=== PATIENT | male | born 1955 | race Caucasian/White ===

== ENCOUNTER 2024-08-05 00:15 | Inpatient (IN) | payer MEDICARE, SELFPAY ==
[2024-08-05] VITALS (15 sets, daily range): BP systolic 108–160; BP diastolic 48–85; PULSE 96–130; RESP 18–28; TEMP 37.2–38.7; O2SAT 92–98; BMI 28.7
--- NOTE | 2024-08-05 00:27 | ECG_ITS ---
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 Measurements Intervals [place] Rate: 114 P: 70 CT: 138 QRS: 238 QRSD: 140 T: 51 QT: 297 QTc: 409 Interpretive Statements SINUS TACHYCARDIA INDETERMINATE AXIS RIGHT BUNDLE BRANCH BLOCK [120+ ms QRS DURATION, UPRIGHT V1, 40+ ms S IN I/aVL/V4/V5/V6] No previous ECG available for comparison Electronically Signed On 08-05-2024 18:05:52 CDT by Linda Gonzales M.D. [id number]
[2024-08-05 00:38] LABS: Eosinophils % 1.3 %; Hematocrit 39.8 % (37-53); Lymphocytes # 0.3 10^3/uL (0.8-4.8); Lymphocytes % 10.8 %; Mean Corpuscular HGB Conc 33.4 g/dL (30-55); Mean Corpuscular Hemoglobin 31.9 pg (27-33); Mean Corpuscular Volume 95.4 fl (82-101); Mean Platelet Volume 10.2 fL (7.4-10.4); Monocytes # 0.2 10^3/uL (0.2-0.9); Monocytes % 8.1 %; Neutrophils # 2.33 10^3/uL (1.8-7.7); Neutrophils % 78.5 %; Nucleated Red Blood Cells % 0 %; Platelet Count 124 10^3/cmm (157-399); Red Blood Count 4.17 10^6/uL (3.85-5.65); Red Cell Distribution Width 13.1 % (12.1-15.1); White Blood Count 2.97 10^3/uL (3.29-11.43)
[2024-08-05 00:51] LABS: INR 0.93 (0.8-1.2)
[2024-08-05 00:52] LABS: Partial Thromboplastin Time 31.1 SECONDS (23.9-36.7)
[2024-08-05 00:58] LABS: Troponin(5th) Baseline 33 ng/L (0-15)
[2024-08-05 01:07] LABS: Alanine Aminotransferase 32 U/L (0-41); Blood Urea Nitrogen 18 mg/dL (8-23); Calcium 6.5 mg/dL (8.5-10.5); Carbon Dioxide 17 mmol/L (22-29); Chloride 113 mmol/L (98-107); Creatinine Clr Calc Pharmacy 71.7953; Glomerular Filtration Rate 66.4 mL/min (90-130); Glucose 183 mg/dL (65-115); NT Pro B Type Natriuretic Pept 65 pg/mL (0-125); Osmolality Calculated 295 mOsm/kg (285-295); Sodium 139 mmol/L (136-145); Total Bilirubin 0.3 mg/dL (0.15-1.2); Total Protein 4.6 g/dL (6.6-8.7)
[2024-08-05 01:08] LABS: Alkaline Phosphatase 96 U/L (40-130); Globulin 1.6 g/dL (1.3-4.6)
[2024-08-05 01:11] LABS: Anion Gap 12.8 (5-19); Aspartate Amino Transferase 35 U/L (0-40); Potassium 3.8 mmol/L (3.5-5.1)
[2024-08-05 01:41] LABS: Bilirubin Urine Negative (Negative); Blood Urine 3+ (Negative); Glucose Urine UA Trace (Normal); Ketones Urine Trace (Negative); Leukocyte Esterase Urine Negative (Negative); Nitrate Urine Negative (Negative); Protein Urine 1+ (Negative); Specific Gravity, Urine 1.025 (1.005-1.030); Urine Appearance Clear (CLEAR); Urine Color Yellow (Yellow); pH Urine 5.5 (5-7)
[2024-08-05 01:46] LABS: Add Urine Microscopic? YES; Bacteria Urine None Seen /hpf; Hyaline Casts Urine 2.05 /lpf; RBC Urine >100 /hpf (0-2); Squamous Epithelial Cell Urine 0-5 /hpf (0-5); WBC Urine 0-5 /hpf (0-5)
--- NOTE | 2024-08-05 02:26 | ECG_ITS ---
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 Measurements Intervals [place] Rate: 104 P: 79 [place]: 142 QRS: 237 QRSD: 137 T: 64 QT: 336 QTc: 442 Interpretive Statements SINUS TACHYCARDIA WITH OCCASIONAL SUPRAVENTRICULAR PREMATURE COMPLEXES INDETERMINATE AXIS RIGHT BUNDLE BRANCH BLOCK [120+ ms QRS DURATION, UPRIGHT V1, 40+ ms S IN I/aVL/V4/V5/V6] Compared to ECG 08/05/2024 00:27:18 No significant changes Electronically Signed On 08-05-2024 18:20:22 CDT by Linda Gonzales M.D. [email or web address]
[2024-08-05 02:28] LABS: Influenza A NEGATIVE (Negative); Influenza B NEGATIVE (Negative); Respiratory Syncytial Virus Ce NEGATIVE (Negative); SARS-CoV-2 PCR NEGATIVE (Negative)
[2024-08-05 02:47] LABS: Troponin 5 2HR 53.32 ng/L (0-15)
[2024-08-05 02:49] LABS: Troponin 5 2HR Delta 20.32 ABS# (0-10)
--- NOTE | 2024-08-05 03:09 | CTR_ITS ---
PROCEDURE INFORMATION: Exam: CT Abdomen And Pelvis With Contrast Exam date and time: 08/05/2024 3:30 AM Age: 69 years old Clinical indication: Abdominal pain; Generalized; Additional info: Abdominal pain on exam TECHNIQUE: Imaging protocol: Computed tomography of the abdomen and pelvis with contrast. Radiation optimization: All CT scans at this facility use at least one of these dose optimization techniques: automated exposure control; mA and/or kV adjustment per patient size (includes targeted exams where dose is matched to clinical indication); or iterative reconstruction. Contrast material: OMNI 350; Contrast volume: 100 ml; Contrast route: INTRAVENOUS (IV); COMPARISON: CT angio chest PE protcl [id number] 08/05/2024 3:30 AM RADIATION DOSE METRICS: Total DLP (mGy-cm): 387.2 FINDINGS: Liver: Normal. No mass. Gallbladder and biliary ducts: Normal. No calcified stones. No ductal dilation. Pancreas: Normal. No ductal dilation. Spleen: Normal. No splenomegaly. Adrenal glands: Normal. No mass. Kidneys and ureters: Small left renal cysts measuring up to 1.4 cm. Stomach and bowel: Colonic diverticulosis is present without diverticulitis. Bowel has normal caliber. Appendix: No evidence of appendicitis. Intraperitoneal space: Unremarkable. No free air. No significant fluid collection. Vasculature: Aortoiliac atherosclerotic disease is seen without evidence of aneurysm. Lymph nodes: Unremarkable. No enlarged lymph nodes. Urinary bladder: 2.5 x 2.5 cm mass in the posterolateral aspect of the urinary bladder lumen. Reproductive: Unremarkable as visualized. Bones/joints: Unremarkable. No acute fracture. Soft tissues: Tiny fat containing left periumbilical ventral hernia. CT/CT abdomen pelvis w con* [id number] IMPRESSION: 1. 2.5 x 2.5 cm mass in the posterolateral aspect of the urinary bladder lumen. Highly suspicious for malignancy. Follow-up urology consultation is recommended. 2. No evidence of acute abdominal or pelvic process. 3. Tiny fat containing left periumbilical ventral hernia. COMMENTS: Consistent with the [place] [employer]'s Incidental Findings Committee white paper (J Am Pratima Radiol 2018): Any incidental renal lesion less than 1 cm or classified as too small to characterize, or any incidental cystic renal lesion characterized as simple-appearing, is likely benign. No follow-up imaging is recommended for these lesions per consensus recommendations based on imaging criteria.
--- NOTE | 2024-08-05 03:09 | CTR_ITS ---
PROCEDURE INFORMATION: Exam: CTA Chest With Contrast Exam date and time: 08/05/2024 3:30 AM Age: 69 years old Clinical indication: Pain; Shortness of breath; Chest pressure; Additional info: SOB and cp TECHNIQUE: Imaging protocol: Computed tomographic angiography of the chest with contrast. Exam focused on the arteries. 3D rendering (Not supervised by radiologist): MIP and/or 3D reconstructed images were created by the technologist. Radiation optimization: All CT scans at this facility use at least one of these dose optimization techniques: automated exposure control; mA and/or kV adjustment per patient size (includes targeted exams where dose is matched to clinical indication); or iterative reconstruction. Contrast material: OMNI 350; Contrast volume: 100 ml; Contrast route: INTRAVENOUS (IV); COMPARISON: CT abdomen pelvis w con* [id number] 08/05/2024 3:30 AM RADIATION DOSE METRICS: Total DLP (mGy-cm): 576.3 FINDINGS: Pulmonary arteries: No evidence of pulmonary embolism. Aorta: Aortic atherosclerotic disease is seen without evidence of aneurysm. Lungs: Moderate centrilobular emphysematous changes are present. Pleural spaces: Unremarkable. No pneumothorax. No pleural effusion. Heart: Unremarkable. No cardiomegaly. No pericardial effusion. Coronary arteries: Coronary artery calcifications are present. Esophagus: There is nonspecific diffuse esophageal wall thickening, which may represent mild esophagitis. Lymph nodes: Unremarkable. No enlarged lymph nodes. Bones/joints: Unremarkable. No acute fracture. Soft tissues: Unremarkable. CT/CT angio chest PE protcl [id number] IMPRESSION: 1. No evidence of pulmonary embolism. 2. Moderate emphysema. 3. There is nonspecific diffuse esophageal wall thickening, which may represent mild esophagitis. Clinical correlation recommended. COMMENTS: The presence of pulmonary emphysema on CT is an independent risk factor for lung cancer. In the absence of a history or active diagnosis of lung cancer, it is recommended that this patient with emphysema be evaluated for enrollment in a low dose CT lung cancer screening program.
[2024-08-05] MEDS: iohexol 350 mg/mL 500 mL Btl (per mL) IV (03:41)
[2024-08-05] MEDS: clopidogrel 75 mg Tablet PO (04:02)
--- NOTE | 2024-08-05 04:04 | ED_ITS ---
Documented by User: Justin DO Segundo 08/05/24 05:33 HPI - SOB/Dyspnea 2 General: Chief Complaint: Shortness of Breath/Dyspnea Stated Complaint: DIZZY Time Seen by Provider: 08/05/24 00:26 History of Present Illness: HPI Narrative: Tree Richey presents with recurrent episodes of fever, chills, and sweating for the past 3 days. He reports feeling significantly better since arrival at the hospital compared to when he was picked up by emergency services. Mr. Richey has been experiencing cyclical episodes of fever, chills, and sweating. The fever typically reaches a maximum of 101?F, followed by chills and then profuse sweating. These episodes have been occurring for 3 days. The patient's reports that he appears to be shaking as if he has a high fever, though the measured temperature is not significantly elevated. Tylenol seems to provide some relief. Tonight, for the first time, Mr. Richey experienced nausea and vomiting. He denies any chest pain, abdominal pain, stuffy nose, runny nose, or sore throat. He reports no changes in urination or bowel movements. The patient mentions having constant back pain, but clarifies that this is not a new symptom. Mr. Richey also reports an exacerbation of a pre-existing umbilical hernia during a recent move. He states that his belly button popped out way more than it ever did when he lifted something heavy. The hernia is tender to touch but reducible. The patient has been experiencing significant dizziness, and there is mention of shortness of breath, though details are not provided. Related Data Allergies Allergy/AdvReac Type Severity Reaction Status Date / Time No Known Allergies Allergy Verified 08/05/24 00:25 Review of Systems 2 General: Reports: 10 or more systems reviewed and unremarkable except in HPI and below Physical Exam 2 Const: COMMON NORMALS: no acute distress, patient oriented x3, healthy appearing, alert and well nourished HENMT: COMMON NORMALS: normocephalic HEAD & SCALP: normocephalic Eye: COMMON NORMALS: EOMs intact bilaterally Neck/C-Spine: COMMON NORMALS: full ROM and supple Resp: COMMON NORMALS: normal respiratory effort, No retractions and clear to auscultation bilaterally AUSCULTATION: clear to auscultation bilaterally Cardio: COMMON NORMALS: regular rhythm, No gallops present (Cardio) and No murmurs present (Cardio) RATE: tachycardic RHYTHM: regular rhythm GI: COMMON NORMALS: Soft to palpation and non-tender PALPATION: Yes Soft to palpation Extremity: GENERAL: Yes normal exam except as noted Neuro: COMMON NORMALS: patient oriented x3 SENSORIUM/ORIENTATION: Yes alert Skin: COMMON NORMALS: no rashes or lesions noted GENERAL SKIN EXAM: no rashes or lesions noted Course 2 Vital Signs: Vital signs: Vital Signs Temperature 99.0 F 08/05/24 00:19 Pulse Rate 110 H 08/05/24 06:54 Respiratory Rate 18 08/05/24 06:54 Blood Pressure 125/64 08/05/24 06:54 Pulse Oximetry 96 08/05/24 06:54 Oxygen Delivery Me thod Room Air 08/05/24 06:54 MDM - SOB/Dyspnea Medical Decision Making 69-year-old male presents to the emergency department for evaluation of episodes of recurrent fever, chills, sweating, and shortness of breath for the last 3 days. Patient arrived to the emergency department via EMS tachycardic. His physical exam demonstrated initial diaphoresis that resolved while in the department. His EKGs did not demonstrate STEMI. Patient had leukopenia and low platelets. He was hyperglycemic. Patient had an elevated Trope with a positive delta. This appears to be consistent with an NSTEMI. Due to the patient's general appearance and inability to rule out a PE the patient underwent a CTA chest with abdomen and pelvis CT. There was no PE present. However, there was an incidental finding of a 2.5 x 2.5 cm mass in his bladder that is suspicious for malignancy. Patient's viral panel was negative. The patient also had an umbilical fat-containing hernia. Patient will need to be admitted to the hospital for management of his NSTEMI and followed with urology outpatient for the bladder mass. Case was turned over to Dr. Kaur for signout. Lab Data 08/05/24 00:33 08/05/24 00:33 Labs/Radiology: Radiology Impressions Abdomen/Pelvis CT 08/05/24 03:09 IMPRESSION: 1. 2.5 x 2.5 cm mass in the posterolateral aspect of the urinary bladder lumen. Highly suspicious for malignancy. Follow-up urology consultation is recommended. 2. No evidence of acute abdominal or pelvic process. 3. Tiny fat containing left periumbilical ventral hernia. COMMENTS: Consistent with the [place] [employer]'s Incidental Findings Committee white paper (J Am Pratima Radiol 2018): Any incidental renal lesion less than 1 cm or classified as too small to characterize, or any incidental cystic renal lesion characterized as simple-appearing, is likely benign. No follow-up imaging is recommended for these lesions per consensus recommendations based on imaging criteria. Chest CTA 08/05/24 03:09 IMPRESSION: 1. No evidence of pulmonary embolism. 2. Moderate emphysema. 3. There is nonspecific diffuse esophageal wall thickening, which may represent mild esophagitis. Clinical correlation recommended. COMMENTS: The presence of pulmonary emphysema on CT is an independent risk factor for lung cancer. In the absence of a history or active diagnosis of lung cancer, it is recommended that this patient with emphysema be evaluated for enrollment in a low dose CT lung cancer screening program. Laboratory Results WBC 2.97 10^3/uL (3.29-11.43) L 08/05/24 00:33 RBC 4.17 10^6/uL (3.85-5.65) 08/05/24 00:33 Hgb 13.30 g/dL (11.27-16.99) 08/05/24 00:33 Hct 39.8 % (37-53) 08/05/24 00:33 MCV 95.4 fl (82-101) 08/05/24 00:33 MCH 31.9 pg (27-33) 08/05/24 00:33 MCHC 33.4 g/dL (30-55) 08/05/24 00:33 RDW 13.1 % (12.1-15.1) 08/05/24 00:33 Plt Count 124 10^3/cmm (157-399) L 08/05/24 00:33 MPV 10.2 fL (7.4-10.4) 08/05/24 00:33 Neut % (Auto) 78.5 % 08/05/24 00:33 Lymph % (Auto) 10.8 % 08/05/24 00:33 Casey % (Auto) 8.1 % 08/05/24 00:33 Eos % (Auto) 1.3 % 08/05/24 00:33 Baso % (Auto) 1.0 % 08/05/24 00:33 Neut # (Auto) 2.33 10^3/uL (1.8-7.7) 08/05/24 00:33 Lymph # (Auto) 0.3 10^3/uL (0.8-4.8) L 08/05/24 00:33 Casey # (Auto) 0.2 10^3/uL (0.2-0.9) 08/05/24 00: Eos # (Auto) 0.0 10^3/uL (0.0-0.8) 08/05/24 00: Baso # (Auto) 0.0 10^3/uL (0.0-0.1) 08/05/24 00: Nucleated RBC % (auto) 0 % 08/05/24 00: Nucleated RBCs # 0.0 /100WBC 08/05/24 00: PT 13.10 SECONDS (12.1-14.9) 08/05/24 00: INR 0.93 (0.8-1.2) 08/05/24 00: APTT 31.1 SECONDS (23.9-36.7) 08/05/24 00: Sodium 139 mmol/L (136-145) 08/05/24 00: Potassium 3.8 mmol/L (3.5-5.1) 08/05/24 00: Chloride 113 mmol/L (98-107) H 08/05/24 00: Carbon Dioxide 17 mmol/L (22-29) L 08/05/24 00: Anion Gap 12.8 (5-19) 08/05/24 00: BUN 18 mg/dL (8-23) 08/05/24 00: Creatinine 1.1 mg/dL (0.7-1.2) 08/05/24 00: GFR Calculation 66.4 mL/min (90-130) L 08/05/24 00: Glucose 183 mg/dL (65-115) H 08/05/24 00: Calculated Osmolality 295 mOsm/kg (285-295) 08/05/24 00: Calcium 6.5 mg/dL (8.5-10.5) L 08/05/24 00: Total Bilirubin 0.3 mg/dL (0.15-1.2) 08/05/24 00:33 AST 35 U/L (0-40) 08/05/24 00:33 ALT 32 U/L (0-41) 08/05/24 00:33 Alkaline Phosphatase 96 U/L (40-130) 08/05/24 00:33 Troponin T Baseline 33 ng/L (0-15) H 08/05/24 00:33 Troponin T 120 Minute 53.32 ng/L (0-15) H 08/05/24 02:25 Delta Troponin T 20.32 ABS# (0-10) H* 08/05/24 02:25 NT-Pro-B Natriuret Pep 65 pg/mL (0-125) 08/05/24 00:33 Total Protein 4.6 g/dL (6.6-8.7) L 08/05/24 00:33 Albumin 3.0 g/dL (3.5-5.2) L 08/05/24 00:33 Globulin 1.6 g/dL (1.3-4.6) 08/05/24 00:33 Urine Color Yellow (Yellow) 08/05/24 01:34 Urine Appearance Clear (CLEAR) 08/05/24 01:34 Urine pH 5.5 (5-7) 08/05/24 01:34 Ur Specific [place] 1.025 (1.005-1.030) 08/05/24 01:34 Urine Protein 1+ (Negative) A 08/05/24 01:34 Urine Glucose (UA) Trace (Normal) H 08/05/24 01:34 Urine Ketones Trace (Negative) 08/05/24 01:34 Urine Blood 3+ (Negative) A 08/05/24 01:34 Urine Nitrate Negative (Negative) 08/05/24 01:34 Urine Bilirubin Negative (Negative) 08/05/24 01:34 Urine Urobilinogen 1.0 mg/dL (Negative) 08/05/24 01:34 Ur Leukocyte Esterase Negative (Negative) 08/05/24 01:34 Urine RBC >100 /hpf (0-2) H 08/05/24 01:34 Urine WBC 0-5 /hpf (0-5) 08/05/24 01:34 Ur Squamous Epith Cells 0-5 /hpf (0-5) 08/05/24 01:34 Amorphous Sediment Not Reportable 08/05/24 01:34 Urine Bacteria None seen /hpf (NONE) 08/05/24 01:34 Hyaline Casts 2.05 /lpf 08/05/24 01:34 Influenza A (PCR) Negative (Negative) 08/05/24 01:44 Influenza Type B (PCR) Negative (Negative) 08/05/24 01:44 RSV (PCR) Negative (Negative) 08/05/24 01:44 SARS-CoV-2 (PCR) Negative (Negative) 08/05/24 01:44 All radiology interpretation(s) finalized by discharge Discharge Plan Discharge Patient Disposition: Admitted As Inpatient Clinical Impression: Non-ST elevation [place] (NSTEMI), Bladder mass Condition: Stable Sign Out Sign Out Data: Patient Sign Out occurred on 08/05/24 at 05:41. Patient's care was discussed, and care was transferred from Justin Raymond DO to Brian Kaur DO. Coding Level of Care Code ED Hull Grinder for Chg Fwd Documented by User: Brian Kaur DO 08/05/24 07:17 HPI - SOB/Dyspnea 2 General: Chief Complaint: Shortness of Breath/Dyspnea Stated Complaint: DIZZY Time Seen by Provider: 08/05/24 00:26 Related Data Allergies Allergy/AdvReac Type Severity Reaction Status Date / Time No Known Allergies Allergy Verified 08/05/24 00:25 Course 2 Vital Signs: Vital signs: Vital Signs Temperature 99.0 F 08/05/24 00:19 Pulse Rate 110 H 08/05/24 06:54 Respiratory Rate 18 08/05/24 06:54 Blood Pressure 125/64 08/05/24 06:54 Pulse Oximetry 96 08/05/24 06:54 Oxygen Delivery Me thod Room Air 08/05/24 06:54 MDM - SOB/Dyspnea Medical Decision Making 69-year-old male presents to the emergency department for evaluation of episodes of recurrent fever, chills, sweating, and shortness of breath for the last 3 days. Patient arrived to the emergency department via EMS tachycardic. His physical exam demonstrated initial diaphoresis that resolved while in the department. His EKGs did not demonstrate STEMI. Patient had leukopenia and low platelets. He was hyperglycemic. Patient had an elevated Trope with a positive delta. This appears to be consistent with an NSTEMI. Due to the patient's general appearance and inability to rule out a PE the patient underwent a CTA chest with abdomen and pelvis CT. There was no PE present. However, there was an incidental finding of a 2.5 x 2.5 cm mass in his bladder that is suspicious for malignancy. Patient's viral panel was negative. The patient also had an umbilical fat-containing hernia. Patient will need to be admitted to the hospital for management of his NSTEMI and followed with urology outpatient for the bladder mass. Case was turned over to Dr. Kaur for signout. Care assumed at change of shift. Patient is currently on heparin. Will admit for NSTEMI. He reported a fever at home has a low-grade temp here of 99 urine shows hematuria but there is no evidence of acute cystitis CT of his chest was negative. Given Rocephin here and being cultured. The mass in the bladder can be worked up as an outpatient after his cardiac evaluation is complete. No sign of bladder outlet obstruction from this mass. Discussed with hospitalist consulted cardiology orders written. Medical Records I reviewed the patient's medical records. Lab Data I reviewed the patient's lab results. 08/05/24 00:33 08/05/24 00:33 Labs/Radiology: Radiology Impressions Abdomen/Pelvis CT 08/05/24 03:09 IMPRESSION: 1. 2.5 x 2.5 cm mass in the posterolateral aspect of the urinary bladder lumen. Highly suspicious for malignancy. Follow-up urology consultation is recommended. 2. No evidence of acute abdominal or pelvic process. 3. Tiny fat containing left periumbilical ventral hernia. COMMENTS: Consistent with the [place] [employer]'s Incidental Findings Committee white paper (J Am Pratima Radiol 2018): Any incidental renal lesion less than 1 cm or classified as too small to characterize, or any incidental cystic renal lesion characterized as simple-appearing, is likely benign. No follow-up imaging is recommended for these lesions per consensus recommendations based on imaging criteria. Chest CTA 08/05/24 03:09 IMPRESSION: 1. No evidence of pulmonary embolism. 2. Moderate emphysema. 3. There is nonspecific diffuse esophageal wall thickening, which may represent mild esophagitis. Clinical correlation recommended. COMMENTS: The presence of pulmonary emphysema on CT is an independent risk factor for lung cancer. In the absence of a history or active diagnosis of lung cancer, it is recommended that this patient with emphysema be evaluated for enrollment in a low dose CT lung cancer screening program. Laboratory Results WBC 2.97 10^3/uL (3.29-11.43) L 08/05/24 00:33 RBC 4.17 10^6/uL (3.85-5.65) 08/05/24 00:33 Hgb 13.30 g/dL (11.27-16.99) 08/05/24 00: Hct 39.8 % (37-53) 08/05/24: MCV 95.4 fl (82-101) 08/05/24 00: MCH 31.9 pg (27-33) 08/05/24 00: MCHC 33.4 g/dL (30-55) 08/05/24 00: RDW 13.1 % (12.1-15.1) 08/05/24 00: Plt Count 124 10^3/cmm (157-399) L 08/05/24 00: MPV 10.2 fL (7.4-10.4) 08/05/24 00: Neut % (Auto) 78.5 % 08/05/24 00: Lymph % (Auto) 10.8 % 08/05/24 00: Casey % (Auto) 8.1 % 08/05/24 00: Eos % (Auto) 1.3 % 08/05/24 00:33 Baso % (Auto) 1.0 % 08/05/24 00:33 Neut # (Auto) 2.33 10^3/uL (1.8-7.7) 08/05/24 00:33 Lymph # (Auto) 0.3 10^3/uL (0.8-4.8) L 08/05/24 00:33 Casey # (Auto) 0.2 10^3/uL (0.2-0.9) 08/05/24 00:33 Eos # (Auto) 0.0 10^3/uL (0.0-0.8) 08/05/24 00:33 Baso # (Auto) 0.0 10^3/uL (0.0-0.1) 08/05/24 00: Nucleated RBC % (auto) 0 % 08/05/24 00: Nucleated RBCs # 0.0 /100WBC 08/05/24 00:33 PT 13.10 SECONDS (12.1-14.9) 08/05/24 00:33 INR 0.93 (0.8-1.2) 08/05/24 00: APTT 31.1 SECONDS (23.9-36.7) 08/05/24 00:33 Sodium 139 mmol/L (136-145) 08/05/24 00: Potassium 3.8 mmol/L (3.5-5.1) 08/05/24 00: Chloride 113 mmol/L (98-107) H 08/05/24 00: Carbon Dioxide 17 mmol/L (22-29) L 08/05/24 00: Anion Gap 12.8 (5-19) 08/05/24 00: BUN 18 mg/dL (8-23) 08/05/24 00: Creatinine 1.1 mg/dL (0.7-1.2) 08/05/24 00:33 GFR Calculation 66.4 mL/min (90-130) L 08/05/24 00: Glucose 183 mg/dL (65-115) H 08/05/24 00:33 Calculated Osmolality 295 mOsm/kg (285-295) 08/05/24 00: Calcium 6.5 mg/dL (8.5-10.5) L 08/05/24 00: Total Bilirubin 0.3 mg/dL (0.15-1.2) 08/05/24 00:33 AST 35 U/L (0-40) 08/05/24 00: ALT 32 U/L (0-41) 08/05/24 00:33 Alkaline Phosphatase 96 U/L (40-130) 08/05/24 00:33 Troponin T Baseline 33 ng/L (0-15) H 08/05/24 00:33 Troponin T 120 Minute 53.32 ng/L (0-15) H 08/05/24 02:25 Delta Troponin T 20.32 ABS# (0-10) H* 08/05/24 02:25 NT-Pro-B Natriuret Pep 65 pg/mL (0-125) 08/05/24 00:33 Total Protein 4.6 g/dL (6.6-8.7) L 08/05/24 00:33 Albumin 3.0 g/dL (3.5-5.2) L 08/05/24 00:33 Globulin 1.6 g/dL (1.3-4.6) 08/05/24 00:33 Urine Color Yellow (Yellow) 08/05/24 01:34 Urine Appearance Clear (CLEAR) 08/05/24 01:34 Urine pH 5.5 (5-7) 08/05/24 01:34 Ur Specific [place] 1.025 (1.005-1.030) 08/05/24 01:34 Urine Protein 1+ (Negative) A 08/05/24 01:34 Urine Glucose (UA) Trace (Normal) H 08/05/24 01:34 Urine Ketones Trace (Negative) 08/05/24 01:34 Urine Blood 3+ (Negative) A 08/05/24 01:34 Urine Nitrate Negative (Negative) 08/05/24 01:34 Urine Bilirubin Negative (Negative) 08/05/24 01:34 Urine Urobilinogen 1.0 mg/dL (Negative) 08/05/24 01:34 Ur Leukocyte Esterase Negative (Negative) 08/05/24 01:34 Urine RBC >100 /hpf (0-2) H 08/05/24 01:34 Urine WBC 0-5 /hpf (0-5) 08/05/24 01:34 Ur Squamous Epith Cells 0-5 /hpf (0-5) 08/05/24 01:34 Amorphous Sediment Not Reportable 08/05/24 01:34 Urine Bacteria None seen /hpf (NONE) 08/05/24 01:34 Hyaline Casts 2.05 /lpf 08/05/24 01:34 Influenza A (PCR) Negative (Negative) 08/05/24 01:44 Influenza Type B (PCR) Negative (Negative) 08/05/24 01:44 RSV (PCR) Negative (Negative) 08/05/24 01:44 SARS-CoV-2 (PCR) Negative (Negative) 08/05/24 01:44 Discharge Plan Discharge Patient Disposition: Admitted As Inpatient Clinical Impression: Non-ST elevation [place] (NSTEMI), Bladder mass Condition: Stable Sign Out Sign Out Data: Patient Sign Out occurred on 08/05/24 at 05:41. Patient's care was discussed, and care was transferred from Justin Raymond DO to Brian Kaur DO. Coding Level of Care Code ED Hull Grinder for Magalie Lee
[2024-08-05] MEDS: heparin 5,000 unit/mL INJ 1 mL IVP (04:09)
[2024-08-05] MEDS: heparin drip 25,000 UNIT/500 ML PREMIX 25 UNIT IV (04:11)
--- NOTE | 2024-08-05 04:36 | PC.NURSE ---
pt provided hospital bed. pt has no further requests at this time.
--- NOTE | 2024-08-05 06:26 | ECG_ITS ---
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 Measurements Intervals [place] Rate: 94 P: 72 [place]: 144 QRS: -83 QRSD: 160 T: 52 QT: 363 QTc: 456 Interpretive Statements SINUS RHYTHM WITH OCCASIONAL SUPRAVENTRICULAR PREMATURE COMPLEXES LEFT AXIS DEVIATION [QRS AXIS < -30] RIGHT BUNDLE BRANCH BLOCK [120+ ms QRS DURATION, UPRIGHT V1, 40+ ms S IN I/aVL/V4/V5/V6] Compared to ECG 08/05/2024 02:26:33 Left-axis deviation now present Sinus tachycardia no longer present Indeterminate axis no longer present Electronically Signed On 08-05-2024 18:19:20 CDT by Linda Gonzales M.D. [email or web address]
[2024-08-05 07:33] LABS: Troponin 5 6HR 47.33 ng/L (0-15)
[2024-08-05 07:36] LABS: Troponin 5 6HR Delta 14.33 ng/L (0-12)
[2024-08-05] MEDS: cefTRIAXone 1,000 mg SDV 1000 MG IVP ×2 (08:04→22:13)
[2024-08-05 08:13] LABS: Lactic Sepsis W/Reflex 1.2 mmol/L (0.5-2.2)
--- NOTE | 2024-08-05 08:16 | PM.HP ---
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 The chills and fever episodes are intermittent, relieved temporarily by Tylenol and ibuprofen, followed by hot sweats and transient improvement, but then recur. The patient also reports significant dizziness and lightheadedness, which has been present intermittently for a couple of months but has worsened over the last three days. There was a splitting headache yesterday, but not currently. The patient denies recent rashes or tick bites. There is a history of chronic lower back pain, which worsens with illness, attributed to two compressed discs. The patient reports some urgency with urination but denies burning. There is no current chest pain or pressure. The patient has been very fatigued. No recent imaging of the back since his 20s. The patient is anxious about being in the hospital and prefers to be mobile. Denies alcohol use except rarely and no recreational drug use. No reported allergies. The patient has a history of rotator cuff surgery and wears dentures. No recent travel or other exposures noted. Denies current headache, neck stiffness, or neurologic symptoms. Denies rashes or tick bites. No mention of family history of cancer, but family history of hypertension, diabetes, and hyperlipidemia. Review of Systems Const: Reports: fever(s), chills, fatigue and diaphoresis; Denies: body aches ENMT: Denies: throat pain Card: Denies: chest pain, edema, pre-syncope or dyspnea on exertion Resp: Denies: dyspnea, productive cough, change in phlegm color or hemoptysis GI: Reports: nausea and vomiting; Denies: abdominal pain, diarrhea, constipation, hematochezia or melena : Reports: urinary urgency; Denies: flank pain, difficulty urinating or hematuria Musc: Denies: back pain, joint swelling or joint redness Skin/Breast: Denies: rash or new lesions Neuro: Denies: headache(s) or confusion Medications/Allergies Home Medications ?Medication ?Instructions ?Recorded ?Confirmed ?Last Taken ?Type aspirin 81 mg tablet,delayed 81 mg PO DAILY 05/22/25 05/22/25 05/21/25 History release (Ani Low Dose Aspirin) lisinopril 10 mg tablet 10 mg PO DAILY 08/05/24 08/05/24 08/04/24 History metformin 500 mg tablet 500 mg PO BID 08/05/24 08/05/24 08/04/24 History [id number]-mc-zahea 300 mcg-K 60 1 tab PO DAILY 08/05/24 08/05/24 08/04/24 History mcg-lycop 600 mcg-lutein 300 mcg tablet (Men 50 Plus Multivitamin) rosuvastatin 20 mg tablet 20 mg PO DAILY 08/05/24 08/05/24 08/04/24 History Allergies Allergy/AdvReac Type Severity Reaction Status Date / Time No Known Allergies Allergy Verified 08/05/24 00:25 PFSH Acute PFSH: Medical History (Updated 08/05/24 @ 12:07 by Karson Magaña MD) Hyperlipidemia HTN (hypertension) DM type 2 (diabetes mellitus, type 2) Surgical History (Updated 08/05/24 @ 11:55 by Karson Magaña MD) H/O shoulder surgery Family History (Updated 08/05/24 @ 11:56 by Karson Magaña MD) Other Heart disease Social History (Updated 08/05/24 @ 11:55 by Karson Magaña MD) Smoking and tobacco/nicotine status: current every day tobacco/nicotine user Alcohol intake: current Alcohol intake frequency: holidays/special occasions only Substance/Drug Use: never Marital status: Vitals/I&O/Wt Last Vital Signs Temp 99.0 F 08/05/24 00:19 Pulse 98 08/05/24 08:05 Resp 18 08/05/24 08:05 BP 137/77 08/05/24 08:05 Pulse Ox 97 08/05/24 08:05 O2 Del Method Room Air 08/05/24 08:05 Weight last 48 hrs Weight 90.718 kg Physical Exam Narrative: Accompanied by his Const: COMMON NORMALS: patient oriented x3 and alert GENERAL APPEARANCE: cooperative ORIENTATION/CONSCIOUSNESS: Yes awake HENMT: COMMON NORMALS: oropharynx normal Neck/C-Spine: COMMON NORMALS: no JVD Resp: COMMON NORMALS: normal respiratory effort and clear to auscultation bilaterally AUSCULTATION: clear to auscultation bilaterally Cardio: COMMON NORMALS: no JVD, regular rhythm, S1 normal heart sound present, S2 normal heart sound present and No murmurs present (Cardio) RHYTHM: regular rhythm HEART SOUNDS: S1 normal heart sound present and S2 normal heart sound present GI: COMMON NORMALS: Normal to inspection, nondistended, normoactive bowel sounds present, Soft to palpation and non-tender PALPATION: Yes Soft to palpation Extremity: COMMON NORMALS: no joint enlargement and no pedal edema Neuro: COMMON NORMALS: patient oriented x3 and moves all extremities SENSORIUM/ORIENTATION: Yes alert Psych: MOOD & AFFECT: Yes anxious Skin: COMMON NORMALS: no rashes or lesions noted GENERAL SKIN EXAM: no rashes or lesions noted Data 08/05/24 00:33 08/05/24 00:33 Micro: Microbiology 08/05/24 07:43 Blood Culture - Preliminary Blood SPECIMEN COLLECTED 08/05/24 07:30 Blood Culture - Preliminary Blood SPECIMEN COLLECTED A&P Assessment and plan (1) Fever: Fever and chills, etiology unclear : The patient has had three days of severe chills, sweats, fever (up to 102?F), and fatigue. Nausea and vomiting started last night. No clear infectious source identified. White blood cell count is decreased, which can be seen in some viral infections or blood disorders. No evidence of pneumonia or lung infection on current evaluation. No rashes or tick bites reported. Some urgency with urination and red blood cells in urine, but no white blood cells. Possible urinary tract infection or viral illness considered. Blood cultures and a broader viral panel are being sent. Peripheral smear ordered to evaluate for blood disorders. Empiric antibiotics considered to cover possible urinary infection. Monitoring for sepsis or other complications. Tick panel. Reviewed vitals, CBC, PTT, INR, CMP, troponin, requested procalcitonin, reviewed UA, COVID, RSV, flu panel, EKG, on my interpretation with RBBB, CTA chest, CT abdomen pelvis, ER provider note, discussed with ER provider. - Send blood cultures and broader viral panel - Order peripheral smear to evaluate for blood disorders - Monitor for sepsis and other complications - Consider empiric antibiotics for possible urinary infection (2) Non-ST elevation ME (NSTEMI): Elevated troponin (possible non-ST elevation myocardial infarction) : The patient has a rising troponin level, mildly to moderately elevated, with no current chest pain or pressure. EKG shows a branch block. Risk factors include diabetes, hypertension, hyperlipidemia, and smoking. No known coronary artery disease or prior stents. The patient is being treated as a possible small heart attack (NSTEMI). Discussed need for additional treatment and assessment, risk of progression to severe/or life-threatening ME. - Continue heparin and Plavix. Monitor for risk of bleeding. Monitor PTT. - Start aspirin - Order echocardiogram (ultrasound of the heart) to assess for wall motion abnormalities - Monitor cardiac rhythm and for development of arrhythmias - Monitor serial troponins - Consider stress test (3) Bladder mass: Urinary bladder mass : A 2.5 x 2.5 cm mass was found incidentally in the urinary bladder on CT scan. The etiology is unclear; could be benign or malignant. Smoking is a risk factor for bladder cancer. No current hematuria or significant urinary symptoms except some urgency and red blood cells in urine. Urology follow-up is needed for further evaluation, including possible cystoscopy and biopsy. No intervention planned until the patient is stable and afebrile. - Discussed urology follow-up for cystoscopy and possible biopsy - Monitor for urinary symptoms or hematuria - No intervention until patient is stable and afebrile Plan Cytopenia: WBC. Review of CBC noted 2.97, platelets 124, lymphocytes 0.3. Without significant cell line elevation. Peripheral smear requested. Requested broader viral panel. Tick panel. Check B12 Possible UTI: With microscopic hematuria. Fever. Her urinary urgency. Received ceftriaxone, will continue. Chronic lower back pain with two compressed discs : History of chronic lower back pain due to two compressed discs, worsened with illness. No recent imaging since his 20s. No new neurologic deficits reported. Consideration of possible infection in the area given fever and back pain, but no focal findings at present. MRI may be difficult due to claustrophobia; CT with contrast may be considered if indicated. - Consider CT scan with contrast of the lumbar spine if concern for infection increases - Monitor for new or worsening neurologic symptoms Anxiety : The patient is experiencing significant anxiety related to hospitalization and prefers to be mobile. Family requests medication for anxiety. - getting very anxious, restless in the ER, required Xanax for anxiety as needed - Allow ambulation as tolerated once on the floor - Nicotine replacement Nicotine dependence : Current smoker. Smoking cessation support discussed for 3 and half minutes. Patient prefers to smoke but this prescription unable to smoke here, is agreeable to nicotine patch and lozenges while hospitalized. - Start nicotine patch - Offer nicotine lozenges for breakthrough cravings PDMP PDMP Reviewed: Not Reviewed Attestations Medical Necessity Statement*: Admission over 2 midnights dissipated for assessment and management of fever of NSTEMI, unclear etiology, leukopenia, lymphopenia, thrombocytopenia, new incidental finding of urinary bladder mass, additional companies above in the gentleman with history of smoking, diabetes, hypertension, hyperlipidemia. and High MDM includes amount and/or complexity of data reviewed/ordered [ previous or external records, resulted lab(s)/test(s), ordered lab(s)/test(s) and other healthcare professional discussion] and described risk of complication, morbidity or mortality of management as documented Diagnoses Fever R50.9 Non-ST elevation ME (NSTEMI) I21.4 Bladder mass N32.89
[2024-08-05] MEDS: lactated ringers 1,000 ML 75 ML IV ×2 (09:00→22:13)
[2024-08-05] MEDS: aspirin 81 mg EC Tablet 162 MG PO (09:00)
[2024-08-05] MEDS: nicotine 21 mg Patch 1 PATCH TRANSDERMA (09:01)
[2024-08-05] MEDS: ALPRAZolam 0.5 mg Tablet PO ×3 (09:01→22:13)
[2024-08-05 09:26] LABS: LAB Peripheral Smear Sent for Review
--- NOTE | 2024-08-05 09:54 | PM.CONSULT ---
Providers/Reason For Consult Consulting Physician/Specialty*: DANETTE Gonzales MD/Cardiology Reason for Consult*: Patient shortness of breath and elevated troponin T Requesting Physician: Dr. Magaña Attending Physician: Karson Magaña History of Present Illness History of Present Illness Tree Richey is a 69 year old male , is admitted to the hospital through the emergency room where he presented with complaints of shortness of breath, chills and cough. He was found to have elevated troponin T. Cardiology consult was requested for further cardiac evaluation and recommendations. This patient has no history for any coronary disease, myocardial infarction or congestive heart failure. He has a history of hypertension, type 2 diabetes and dyslipidemia for the last at least 5 years or so. He has been in his baseline state of health up until 3 days ago when he started having chills and cough with some shortness of breath. His symptoms slowly started getting worse. Last night, the shortness of breath was getting much worse. For this reason he decided to come to the hospital. He denies any chest pain or chest tightness with. No palpitations. No other associated symptoms. He has no previous history for any CVA or peripheral artery disease. No history for kidney disease, liver disease or bleeding disorders. He has a history of smoking abuse, 2 pack a day for the last 50 years or so. No alcohol abuse or any other substance abuse. He is known to have COPD. His father had multiple myocardial infarction starting in his 60s?. His mother also had a coronary disease and coronary artery bypass surgery. Maternal aunts and paternal uncles also had heart problems. Details are not available. He has a brother who has no heart disease. Review of Systems Narrative: CONSTITUTIONAL: Chills, cough and shortness of breath as mentioned EYES: No blurring of vision or other visual disturbances lately. ENT: No hoarseness of voice, auditory disturbances or sore throat. CARDIOVASCULAR: As mentioned above. RESPIRATORY: He has some baseline shortness of breath with activities. GASTROINTESTINAL: No hematemesis or melena. GENITOURINARY: No dysuria or hematuria. INTEGUMENTARY: No skin rashes or history of skin cancer. NEURO: No transient ischemic attacks or amaurosis. PSYCHIATRIC: No history of psychosis or major depression. HEMATOLOGIC: No bleeding disorders or significant anemia. ENDOCRINE: No history of polyuria or polydipsia. MUSCULOSKELETAL: No recent joint pain or swelling. ALLERGY/IMMUNOLOGY: As mentioned above. Medications/Allergies Home Medications ?Medication ?Instructions ?Recorded ?Confirmed ?Last Taken ?Type aspirin 81 mg tablet,delayed 81 mg PO DAILY 08/05/24 08/05/24 08/04/24 History release (Ani Low Dose Aspirin) lisinopril 10 mg tablet 10 mg PO DAILY 08/05/24 08/05/24 08/04/24 History metformin 500 mg tablet 500 mg PO BID 08/05/24 08/05/24 08/04/24 History xswtrnjf-xl-lautj 300 mcg-K 60 1 tab PO DAILY 08/05/24 08/05/24 08/04/24 History mcg-lycop 600 mcg-lutein 300 mcg tablet (Men 50 Plus Multivitamin) rosuvastatin 20 mg tablet 20 mg PO DAILY 08/05/24 08/05/24 08/04/24 History Allergies Allergy/AdvReac Type Severity Reaction Status Date / Time No Known Allergies Allergy Verified 08/05/24 00:25 Current Medications Generic Name Dose Route Start Last Admin Trade Name Freq PRN Reason Stop Dose Admin Alprazolam 0.5 mg 08/05/24 08:12 08/05/24 09:01 Alprazolam 0.5 Mg Tablet PO 0.5 mg TID PRN Administration ANXIETY Aspirin 162 mg 08/05/24 08:15 08/05/24 09:00 Aspirin 81 Mg Ec Tablet PO 162 mg DAILY BRYANNA Administration Heparin Sodium/Sodium Chloride 25,000 unit in 500 mls @ 0 mls/hr 08/05/24 03:00 08/05/24 04:11 Heparin Drip IV 13.78 unit/kg/hr CONT BRYANNA 25 mls/hr Protocol Administration Per Protocol Lactated Ringer's 1,000 mls @ 75 mls/hr 08/05/24 08:15 08/05/24 09:00 Lactated Ringers IV 75 mls/hr .[id number] BRYANNA Administration Nicotine 1 patch 08/05/24 08:15 08/05/24 09:01 Nicotine 21 Mg Patch TRANSDERMA 1 patch DAILY BRYANNA Administration PFSH Acute PFSH: Medical History Hyperlipidemia HTN (hypertension) DM type 2 (diabetes mellitus, type 2) Surgical History H/O shoulder surgery Family History Other Heart disease Social History Smoking and tobacco/nicotine status: current every day tobacco/nicotine user Alcohol intake: current Alcohol intake frequency: holidays/special occasions only Substance/Drug Use: never Marital status: Vitals/I&O/Wt Last Vital Signs Temp 99.0 F 08/05/24 00:19 Pulse 101 H 08/05/24 09:01 Resp 18 08/05/24 08:05 BP 160/85 08/05/24 09:01 Pulse Ox 96 08/05/24 09:01 O2 Del Method Room Air 08/05/24 09:01 Weight last 48 hrs Weight 200 lb Physical Exam Narrative: GENERAL: The patient is alert and oriented times three. Not in any acute distress. HEENT: No significant pallor, icterus or lymphadenopathy.Oral cavity: There are no mucous membrane lesions. NECK: Trachea appears to be central. No masses noted. No JVD or thyromegaly appreciated. RESPIRATORY: Chest is symmetrical. No intercostals muscle retraction or any accessory muscle activation. There is no chest wall tenderness. Breath sounds are heard bilaterally. No rales or rhonchi heard. No evidence of any consolidation. BREASTS: Deferred. HEART: The heart sounds are normal. No S3 or S4. No significant murmurs. No pericardial rub ABDOMEN: No vessel pulsations or distention. No tenderness. No organomegaly appreciated. Bowel sounds are normally heard. : Deferred. RECTAL: Deferred. LYMPHATIC: No lymphadenopathy noted in the neck or groin. EXTREMITIES: No edema or cyanosis. No clubbing. Peripheral pulses are palpated in fairly good volume and amplitude MUSCULOSKELETAL: No acute joint deformities or swelling SKIN: There are no significant scars or skin rash noted. NEUROPSYCHIATRIC: The patient is alert and oriented x3. Appears to be in a good mood. No tremors or rigidity noted. Data 08/05/24 00:33 08/05/24 00:33 Other Labs: Laboratory Last Values WBC 2.97 10^3/uL (3.29-11.43) L 08/05/24 00:33 RBC 4.17 10^6/uL (3.85-5.65) 08/05/24 00: Hgb 13.30 g/dL (11.27-16.99) 08/05/24 00: Hct 39.8 % (37-53) 08/05/24 00: MCV 95.4 fl (82-101) 08/05/24 00: MCH 31.9 pg (27-33) 08/05/24 00: MCHC 33.4 g/dL (30-55) 08/05/24 00: RDW 13.1 % (12.1-15.1) 08/05/24 00: Plt Count 124 10^3/cmm (157-399) L 08/05/24: MPV 10.2 fL (7.4-10.4) 08/05/24 00: Neut % (Auto) 78.5 % 08/05/24 00: Lymph % (Auto) 10.8 % 08/05/24 00: [place] % (Auto) 8.1 % 08/05/24 00: Eos % (Auto) 1.3 % 08/05/24 00: Baso % (Auto) 1.0 % 08/05/24 00: Neut # (Auto) 2.33 10^3/uL (1.8-7.7) 08/05/24 00: Lymph # (Auto) 0.3 10^3/uL (0.8-4.8) L 08/05/24 00: [place] # (Auto) 0.2 10^3/uL (0.2-0.9) 08/05/24 00: Eos # (Auto) 0.0 10^3/uL (0.0-0.8) 08/05/24 00: Baso # (Auto) 0.0 10^3/uL (0.0-0.1) 08/05/24 00: Nucleated RBC % (auto) 0 % 08/05/24 00: Nucleated RBCs # 0.0 /100WBC 08/05/24 00: Peripher Smr Path Cons Sent for review 08/05/24 00: PT 13.10 SECONDS (12.1-14.9) 05/22/25 00:33 INR 0.93 (0.8-1.2) 08/05/24 00:33 APTT 31.1 SECONDS (23.9-36.7) 08/05/24 00:33 Sodium 139 mmol/L (136-145) 08/05/24 00:33 Potassium 3.8 mmol/L (3.5-5.1) 08/05/24 00:33 Chloride 113 mmol/L (98-107) H 08/05/24 00:33 Carbon Dioxide 17 mmol/L (22-29) L 08/05/24 00:33 Anion Gap 12.8 (5-19) 08/05/24 00:33 BUN 18 mg/dL (8-23) 08/05/24 00:33 Creatinine 1.1 mg/dL (0.7-1.2) 08/05/24 00:33 GFR Calculation 66.4 mL/min (90-130) L 08/05/24 00:33 Glucose 183 mg/dL (65-115) H 08/05/24 00:33 Calculated Osmolality 295 mOsm/kg (285-295) 08/05/24 00:33 Lactic Acid 1.2 mmol/L (0.5-2.2) 08/05/24 07:43 Calcium 6.5 mg/dL (8.5-10.5) L 08/05/24 00:33 Total Bilirubin 0.3 mg/dL (0.15-1.2) 08/05/24 00:33 AST 35 U/L (0-40) 08/05/24 00:33 ALT 32 U/L (0-41) 08/05/24 00:33 Alkaline Phosphatase 96 U/L (40-130) 08/05/24 00:33 Troponin T Baseline 33 ng/L (0-15) H 08/05/24 00:33 Troponin T 120 Minute 53.32 ng/L (0-15) H 08/05/24 02:25 Delta Troponin T 20.32 ABS# (0-10) H* 08/05/24 02:25 Troponin T Hi Sens 6Hr 47.33 ng/L (0-15) H 08/05/24 07:06 Troponin T Hi Sens 6Hr Delta 14.33 ng/L (0-12) H* 08/05/24 07:06 NT-Pro-B Natriuret Pep 65 pg/mL (0-125) 08/05/24 00:33 Total Protein 4.6 g/dL (6.6-8.7) L 08/05/24 00:33 Albumin 3.0 g/dL (3.5-5.2) L 08/05/24 00:33 Globulin 1.6 g/dL (1.3-4.6) 08/05/24 00:33 Urine Color Yellow (Yellow) 08/05/24 01:34 Urine Appearance Clear (CLEAR) 08/05/24 01:34 Urine pH 5.5 (5-7) 08/05/24 01:34 Ur Specific [place] 1.025 (1.005-1.030) 08/05/24 01:34 Urine Protein 1+ (Negative) A 08/05/24 01:34 Urine Glucose (UA) Trace (Normal) H 08/05/24 01:34 Urine Ketones Trace (Negative) 08/05/24 01:34 Urine Blood 3+ (Negative) A 08/05/24 01:34 Urine Nitrate Negative (Negative) 08/05/24 01:34 Urine Bilirubin Negative (Negative) 08/05/24 01:34 Urine Urobilinogen 1.0 mg/dL (Negative) 08/05/24 01:34 Ur Leukocyte Esterase Negative (Negative) 08/05/24 01:34 Urine RBC >100 /hpf (0-2) H 08/05/24 01:34 Urine WBC 0-5 /hpf (0-5) 08/05/24 01:34 Ur Squamous Epith Cells 0-5 /hpf (0-5) 08/05/24 01:34 Amorphous Sediment Not Reportable 08/05/24 01:34 Urine Bacteria None seen /hpf (NONE) 08/05/24 01:34 Hyaline Casts 2.05 /lpf 08/05/24 01:34 Influenza A (PCR) Negative (Negative) 08/05/24 01:44 Influenza Type B (PCR) Negative (Negative) 08/05/24 01:44 RSV (PCR) Negative (Negative) 08/05/24 01:44 SARS-CoV-2 (PCR) Negative (Negative) 08/05/24 01:44 Micro: Microbiology 08/05/24 07:43 Blood Culture - Preliminary Blood SPECIMEN COLLECTED 08/05/24 07:30 Blood Culture - Preliminary Blood SPECIMEN COLLECTED Other data: The EKG showed a sinus rhythm with a right bundle branch block pattern. Possible left hemifascicular block. No acute ST-T changes. A&P Assessment and plan (1) Elevated troponin: The etiology of the elevated troponin is not clear. Possibility of a type II [place] versus type I are considerations. To further evaluate the cardiac status, an echocardiogram would be helpful. (2) SOB (shortness of breath): The etiology of the shortness of breath is unclear. His COPD could be the contributing factor. Apparently there is no evidence of pulmonary embolism by CTA. COPD exacerbation/pneumonia also other considerations (3) Abnormal EKG: EKG shows sinus rhythm with a right bundle branch block and possible left hemifascicular block. No acute ST-T changes. (4) Bladder mass: This needs to be further evaluated. (5) Fever: Patient is currently afebrile. But he has been having chills for the last few days. The bladder mass may may be playing a role. He seems to have hematuria. Respiratory infection is a strong consideration . Empiric antibiotic treatment would be appropriate (6) Leukopenia: This could be secondary to the infection. Plan For further evaluation of the patient's abnormal EKG/elevated troponin T, an echocardiogram would be helpful. May continue the IV heparin for the time being. After treating the infection appropriately may consider doing a cardiac catheterization versus Myocardial perfusion imaging, to further evaluate the coronary status, after reviewing the echocardiogram. Thank you for the opportunity to evaluate this patient and make these recommendations Based on the clinical progress and the results of the above, further recommendations will be made PDMP PDMP Reviewed: Not Reviewed Coding Level of Care Code 42030 Diagnoses Elevated troponin R79.89 SOB (shortness of breath) R06.02 Abnormal EKG R94.31 Bladder mass N32.89 Fever, unspecified fever cause R50.9 Fever type: unspecified Leukopenia, unspecified type D72.819 Leukopenia type: unspecified
[2024-08-05 11:00] LABS: Adenovirus Not Detected (NOT DETECT); Chlamydia Pneumoniae Not Detected (NOT DETECT); Coronavirus 229E,HKU1,NL63,OC4 Not Detected (NOT DETECT); Human Metapneumovirus Not Detected (NOT DETECT); Human Rhinovirus/Enterovirus Not Detected (NOT DETECT); Influenza A Not Detected (NOT DETECT); Influenza A H1 Not Detected (NOT DETECT); Influenza A H1-2009 Not Detected (NOT DETECT); Influenza A H3 Not Detected (NOT DETECT); Influenza B Not Detected (NOT DETECT); Mycoplasma Pneumoniae Not Detected (NOT DETECT); Parainfluenza Virus Type 1 Not Detected (NOT DETECT); Parainfluenza Virus Type 2 Not Detected (NOT DETECT); Parainfluenza Virus Type 3 Not Detected (NOT DETECT); Parainfluenza Virus Type 4 Not Detected (NOT DETECT); Respiratory Syncytial Virus A Not Detected (NOT DETECT); Respiratory Syncytial Virus B Not Detected (NOT DETECT); SARS-COV-2 Not Detected (NOT DETECT)
[2024-08-05 11:14] LABS: Partial Thromboplastin Time 116.9 SECONDS (23.9-36.7)
[2024-08-05 12:36] LABS: Procalcitonin 0.17 ng/mL (0-0.5)
[2024-08-05] MEDS: perflutren protein-a microsphr 0.22 mg/mL SDV 3 mL IV (13:33)
[2024-08-05] MEDS: pantoprazole DR 40 mg Tablet PO (13:37)
[2024-08-05] MEDS: acetaminophen 325 mg Tablet 650 MG PO ×2 (13:38→18:37)
[2024-08-05 14:13] LABS: Vitamin B12 308 pg/mL (232-1245)
--- NOTE | 2024-08-05 18:01 | PC.NURSE ---
Patient started to have another episode of cold feeling and chills. Temp checked orally T-99.8..Been having dry cough. Pt requested additional blankets. Will give Tylenol PRN as ordered.
[2024-08-05 18:24] LABS: Partial Thromboplastin Time 18.9 SECONDS (23.9-36.7)
--- NOTE | 2024-08-05 18:43 | PC.NURSE ---
notified hospitalist Pt having chills and feeling cold right now, temp is 99.8, orally, HR-142 sinus tach. have dry occasional cough. 1814 pm- Temp Orally increase to 101.4, Tylenol given, applied cold washcloth to forehead.
[2024-08-05 19:56] LABS: Partial Thromboplastin Time 69.1 SECONDS (23.9-36.7)
--- NOTE | 2024-08-05 20:02 | PC.NURSE ---
heparin protocol Pt's PTT around 1730 resulted-18.9 level. Large decrease from previous result this morning w/c is 116.9. So nurse order a repeat STAT PTT around 7 pm to verify accuracy of the 1730 pm PTT result.
[2024-08-05] MEDS: atorvastatin 40 mg Tablet PO (22:13)
[2024-08-06] VITALS (13 sets, daily range): BP systolic 129–163; BP diastolic 59–99; PULSE 102–139; RESP 16–19; TEMP 37.2–39.2; O2SAT 90–98
--- NOTE | 2024-08-06 00:59 | ECG_ITS ---
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 Measurements Intervals [place] Rate: 130 P: 79 AK: 136 QRS: 244 QRSD: 142 T: 59 QT: 312 QTc: 460 Interpretive Statements SINUS TACHYCARDIA WITH OCCASIONAL SUPRAVENTRICULAR PREMATURE COMPLEXES RIGHT AXIS DEVIATION [QRS AXIS > 100] RIGHT BUNDLE BRANCH BLOCK [120+ ms QRS DURATION, UPRIGHT V1, 40+ ms S IN I/aVL/V4/V5/V6] ST DEPRESSION, CONSIDER SUBENDOCARDIAL INJURY [0.1+ mV ST DEPRESSION] Compared to ECG 08/05/2024 06:24:31 Right-axis deviation now present ST (T wave) deviation now present Sinus rhythm no longer present Left-axis deviation no longer present Electronically Signed On 08-06-2024 16:26:03 CDT by Linda Gonzales M.D. [email or web address]
[2024-08-06 01:03] LABS: Eosinophils % 0.3 %; Hematocrit 44.2 % (37-53); Lymphocytes # 0.7 10^3/uL (0.8-4.8); Lymphocytes % 25.4 %; Mean Corpuscular HGB Conc 33.3 g/dL (30-55); Mean Corpuscular Hemoglobin 31.7 pg (27-33); Mean Corpuscular Volume 95.3 fl (82-101); Monocytes # 0.2 10^3/uL (0.2-0.9); Monocytes % 6.6 %; Neutrophils # 1.89 10^3/uL (1.8-7.7); Nucleated Red Blood Cells % 0 %; Platelet Count 115 10^3/cmm (157-399); Red Blood Count 4.64 10^6/uL (3.85-5.65); White Blood Count 2.87 10^3/uL (3.29-11.43)
[2024-08-06] MEDS: heparin drip 25,000 UNIT/500 ML PREMIX 20 UNIT IV (01:14)
[2024-08-06 01:15] LABS: Partial Thromboplastin Time 69.2 SECONDS (23.9-36.7)
[2024-08-06 01:20] LABS: Chloride 100 mmol/L (98-107); Potassium 4.5 mmol/L (3.5-5.1); Sodium 135 mmol/L (136-145)
[2024-08-06] MEDS: acetaminophen 325 mg Tablet 650 MG PO ×4 (01:22→23:22)
[2024-08-06 01:33] LABS: Alanine Aminotransferase 57 U/L (0-41); Alkaline Phosphatase 118 U/L (40-130); Anion Gap 13.5 (5-19); Aspartate Amino Transferase 55 U/L (0-40); Blood Urea Nitrogen 17 mg/dL (8-23); Calcium 9.1 mg/dL (8.5-10.5); Carbon Dioxide 26 mmol/L (22-29); Creatinine Clr Calc Pharmacy 61.7136; Globulin 2.8 g/dL (1.3-4.6); Glomerular Filtration Rate 54.7 mL/min (90-130); Glucose 112 mg/dL (65-115); Osmolality Calculated 282 mOsm/kg (285-295); Total Bilirubin 0.5 mg/dL (0.15-1.2); Total Protein 6.8 g/dL (6.6-8.7)
[2024-08-06 07:36] LABS: Partial Thromboplastin Time 68.7 SECONDS (23.9-36.7)
[2024-08-06] MEDS: nicotine 21 mg Patch 1 PATCH TRANSDERMA (07:53)
[2024-08-06] MEDS: aspirin 81 mg EC Tablet 162 MG PO (07:53)
[2024-08-06] MEDS: ALPRAZolam 0.5 mg Tablet PO ×3 (07:53→21:26)
--- NOTE | 2024-08-06 07:53 | PC.NURSE ---
Patient had fever 100 Hr was elevated in the 140-150, ekg performed and hospitalist notified of situation. No new orders were placed.
[2024-08-06] MEDS: doxycycline 100 MG in sodium chloride 0.9% (plus) 100 ML IV ×2 (07:54→20:12)
[2024-08-06] MEDS: pantoprazole DR 40 mg Tablet PO (07:54)
--- NOTE | 2024-08-06 08:00 | PC.NURSE ---
hospitalist in room Notified hospitalist that pt still been having low and high grade fever. when he gets chills and fever, HR increased around 130s to 150s.
[2024-08-06 08:25] LABS: Hepatitis A Antibody IgM Non-Reactive (Nonreactive); Hepatitis B Core IgM Non-Reactive (Nonreactive); Hepatitis B Surface Antigen Non-Reactive (Nonreactive); Hepatitis C Virus Antibody Non-Reactive (Nonreactive)
--- NOTE | 2024-08-06 09:29 | PC.SOCIAL ---
IMM Update pg 2 of IMM Updated and reviewed w/ patient. Copy dated, initialed and placed in chart.
--- NOTE | 2024-08-06 10:06 | P.PN_ITS ---
Subjective 2 Subjective: Patient continues to deny fever and chills. No chest pain. Continues to have shortness of breath and a cough. No other specific complaints. Medications: Medication Review Details: Current Medications Acetaminophen (Acetaminophen 325 Mg Tablet) 650 mg PO Q6H PRN PRN Reason: Mild/Mod Pain Or Temp >/= 101 Last Admin: 08/06/24 07:53 Dose: 650 mg Alprazolam (Alprazolam 0.5 Mg Tablet) 0.5 mg PO TID PRN PRN Reason: ANXIETY Last Admin: 08/06/24 07:53 Dose: 0.5 mg Aspirin (Aspirin 81 Mg Ec Tablet) 162 mg PO DAILY BRYANNA Last Admin: 08/06/24 07:53 Dose: 162 mg Atorvastatin Calcium (Atorvastatin 40 Mg Tablet) 40 mg PO BEDTIME BRYANNA Last Admin: 08/05/24 22:13 Dose: 40 mg Ceftriaxone Sodium (Ceftriaxone 1,000 Mg Sdv) 1,000 mg IVP Q24H BRYANNA; Protocol Last Admin: 08/05/24 22:13 Dose: 1,000 mg Heparin Sodium (Porcine) (Heparin 5,000 Unit/Ml Inj 1 Ml) 0 unit IVP PRN PRN; Protocol PRN Reason: Heparin Weight Based Protocol -Subsequent Bolus Heparin Sodium/Sodium Chloride (Heparin Drip) 25,000 unit in 500 mls @ 0 mls/hr IV CONT BRYANNA; Protocol Last Titration: 08/06/24 01:24 Dose: 11.02 unit/kg/hr, 20 mls/hr Lactated Ringer's (Lactated Ringers) 1,000 mls @ 75 mls/hr IV .[id number] BRYANNA Last Infusion: 08/06/24 04:06 Dose: 0 mls/hr Doxycycline Hyclate 100 mg/ (Sodium Chloride) 100 mls @ 100 mls/hr IV Q12H BRYANNA; Protocol Last Infusion: 08/06/24 08:27 Dose: 0 mls/hr Nicotine (Nicotine 21 Mg Patch) 1 patch TRANSDERMA DAILY BRYANNA Last Admin: 08/06/24 07:53 Dose: 1 patch Nicotine Polacrilex (Nicotine 4 Mg Lozenge) 4 mg MUCOUS MEM Q4H PRN PRN Reason: NICOTINE CRAVINGS Ondansetron HCl (Ondansetron 2 Mg/Ml Sdv 2 Ml) 4 mg IVP Q8H PRN PRN Reason: vomiting, or N/V if npo Pantoprazole Sodium (Pantoprazole Dr 40 Mg Tablet) 40 mg PO DAILY BRYANNA Last Admin: 08/06/24 07:54 Dose: 40 mg Vitals/I&O/Wt Last Vital Signs Temp 100.1 F H 08/06/24 08:00 Pulse 118 H 08/06/24 08:00 Resp 16 08/06/24 03:58 BP 145/99 08/06/24 08:00 Pulse Ox 92 08/06/24 08:00 O2 Del Method Room Air 08/06/24 08:00 08/05/24 08/06/24 08/06/24 22:59 06:59 14:59 Intake Total 1484.333 / 1903.916 537.583 / 2441.499 0 / 0 Output Total 450 / 450 300 / 750 700 / 700 Balance 1034.333 / 1453.916 237.583 / 1691.499 -700 / -700 Weight last 48 hrs Weight 209 lb 8 oz Weight 207 lb Weight 200 lb Physical Exam 2 Narrative: GENERAL: The patient is alert and oriented times three. Not in any acute distress. HEENT: No significant pallor, icterus or lymphadenopathy.Oral cavity: There are no mucous membrane lesions. NECK: Trachea appears to be central. No masses noted. No JVD or thyromegaly appreciated. RESPIRATORY: Chest is symmetrical. No intercostals muscle retraction or any accessory muscle activation. There is no chest wall tenderness. Breath sounds are heard bilaterally. No rales or rhonchi heard. No evidence of any consolidation. BREASTS: Deferred. HEART: The heart sounds are normal. No S3 or S4. No significant murmurs. No pericardial rub ABDOMEN: No vessel pulsations or distention. No tenderness. No organomegaly appreciated. Bowel sounds are normally heard. : Deferred. RECTAL: Deferred. LYMPHATIC: No lymphadenopathy noted in the neck or groin. EXTREMITIES: No edema or cyanosis. No clubbing. Peripheral pulses are palpated in fairly good volume and amplitude MUSCULOSKELETAL: No acute joint deformities or swelling SKIN: There are no significant scars or skin rash noted. NEUROPSYCHIATRIC: The patient is alert and oriented x3. Appears to be in a good mood. No tremors or rigidity noted. Data 08/06/24 00:51 08/06/24 00:51 Other Labs: Laboratory Last Values WBC 2.87 10^3/uL (3.29-11.43) L 08/06/24 00:51 RBC 4.64 10^6/uL (3.85-5.65) 08/06/24 00:51 Hgb 14.70 g/dL (11.27-16.99) 08/06/24 00:51 Hct 44.2 % (37-53) 08/06/24 00:51 MCV 95.3 fl (82-101) 08/06/24 00:51 MCH 31.7 pg (27-33) 08/06/24 00:51 MCHC 33.3 g/dL (30-55) 08/06/24 00:51 RDW 13.0 % (12.1-15.1) 08/06/24 00:51 Plt Count 115 10^3/cmm (157-399) L 08/06/24 00:51 MPV 10.0 fL (7.4-10.4) 08/06/24 00:51 Neut % (Auto) 66.0 % 08/06/24 00:51 Lymph % (Auto) 25.4 % 08/06/24 00:51 Walsh % (Auto) 6.6 % 08/06/24 00:51 Eos % (Auto) 0.3 % 08/06/24 00:51 Baso % (Auto) 1.0 % 08/06/24 00:51 Neut # (Auto) 1.89 10^3/uL (1.8-7.7) 08/06/24 00:51 Lymph # (Auto) 0.7 10^3/uL (0.8-4.8) L 08/06/24 00:51 Walsh # (Auto) 0.2 10^3/uL (0.2-0.9) 08/06/24 00:51 Eos # (Auto) 0.0 10^3/uL (0.0-0.8) 08/06/24 00:51 Baso # (Auto) 0.0 10^3/uL (0.0-0.1) 08/06/24 00:51 Nucleated RBC % (auto) 0 % 08/06/24 00:51 Nucleated RBCs # 0.0 /100WBC 08/06/24 00:51 Peripher Smr Path Cons Sent for review 08/05/24 00:33 PT 13.10 SECONDS (12.1-14.9) 08/05/24 00:33 INR 0.93 (0.8-1.2) 08/05/24 00:33 APTT 68.7 SECONDS (23.9-36.7) H 08/06/24 06:43 Sodium 135 mmol/L (136-145) L 08/06/24 00:51 Potassium 4.5 mmol/L (3.5-5.1) 08/06/24 00:51 Chloride 100 mmol/L (98-107) 08/06/24 00:51 Carbon Dioxide 26 mmol/L (22-29) 08/06/24 00:51 Anion Gap 13.5 (5-19) 08/06/24 00:51 BUN 17 mg/dL (8-23) 08/06/24 00:51 Creatinine 1.3 mg/dL (0.7-1.2) H 08/06/24 00:51 GFR Calculation 54.7 mL/min (90-130) L 08/06/24 00:51 Glucose 112 mg/dL (65-115) 08/06/24 00:51 Calculated Osmolality 282 mOsm/kg (285-295) L 08/06/24 00:51 Lactic Acid 1.2 mmol/L (0.5-2.2) 08/05/24 07:43 Calcium 9.1 mg/dL (8.5-10.5) 08/06/24 00:51 Total Bilirubin 0.5 mg/dL (0.15-1.2) 08/06/24 00:51 AST 55 U/L (0-40) H 08/06/24 00:51 ALT 57 U/L (0-41) H 08/06/24 00:51 Alkaline Phosphatase 118 U/L (40-130) 08/06/24 00:51 Troponin T Baseline 33 ng/L (0-15) H 08/05/24 00:33 Troponin T 120 Minute 53.32 ng/L (0-15) H 08/05/24 02:25 Delta Troponin T 20.32 ABS# (0-10) H* 08/05/24 02:25 Troponin T Hi Sens 6Hr 47.33 ng/L (0-15) H 08/05/24 07:06 Troponin T Hi Sens 6Hr Delta 14.33 ng/L (0-12) H* 08/05/24 07:06 NT-Pro-B Natriuret Pep 65 pg/mL (0-125) 08/05/24 00:33 Total Protein 6.8 g/dL (6.6-8.7) 08/06/24 00:51 Albumin 4.0 g/dL (3.5-5.2) 08/06/24 00:51 Globulin 2.8 g/dL (1.3-4.6) 08/06/24 00:51 Vitamin B12 308 pg/mL (232-1245) 08/05/24 00:33 Procalcitonin 0.17 ng/mL (0-0.5) 08/05/24 00:33 Urine Color Yellow (Yellow) 08/05/24 01:34 Urine Appearance Clear (CLEAR) 08/05/24 01:34 Urine pH 5.5 (5-7) 08/05/24 01:34 Ur Specific [place] 1.025 (1.005-1.030) 08/05/24 01:34 Urine Protein 1+ (Negative) A 08/05/24 01:34 Urine Glucose (UA) Trace (Normal) H 08/05/24 01:34 Urine Ketones Trace (Negative) 08/05/24 01:34 Urine Blood 3+ (Negative) A 08/05/24 01:34 Urine Nitrate Negative (Negative) 08/05/24 01:34 Urine Bilirubin Negative (Negative) 08/05/24 01:34 Urine Urobilinogen 1.0 mg/dL (Negative) 08/05/24 01:34 Ur Leukocyte Esterase Negative (Negative) 08/05/24 01:34 Urine RBC >100 /hpf (0-2) H 08/05/24 01:34 Urine WBC 0-5 /hpf (0-5) 08/05/24 01:34 Ur Squamous Epith Cells 0-5 /hpf (0-5) 08/05/24 01:34 Amorphous Sediment Not Reportable 08/05/24 01:34 Urine Bacteria None seen /hpf (NONE) 08/05/24 01:34 Hyaline Casts 2.05 /lpf 08/05/24 01:34 Adenovirus (PCR) Not detected (NOT DETECT) 08/05/24 09:10 C. pneumoniae DNA (PCR) Not detected (NOT DETECT) 08/05/24 09:10 Coronavirus 229E (PCR) Not detected (NOT DETECT) 08/05/24 09:10 Hepatitis A IgM Ab Non-reactive (Nonreactive) 08/05/24 00:33 Hep Bs Antigen Non-reactive (Nonreactive) 08/05/24 00:33 Hep B Core IgM Ab Non-reactive (Nonreactive) 08/05/24 00:33 Hepatitis C Antibody Non-reactive (Nonreactive) 08/05/24 00:33 Human Metapneumovir PCR Not detected (NOT DETECT) 08/05/24 09:10 Influenza A (H1) PCR Not detected (NOT DETECT) 08/05/24 09:10 Influenza A (PCR) Negative (Negative) 08/05/24 01:44 Influ A (H1/09) PCR Not detected (NOT DETECT) 08/05/24 09:10 Influenza A (H3) PCR Not detected (NOT DETECT) 08/05/24 09:10 Influenza Type A (PCR) Not detected (NOT DETECT) 08/05/24 09:10 Influenza Type B (PCR) Not detected (NOT DETECT) 08/05/24 09:10 M. pneumoniae (PCR) Not detected (NOT DETECT) 08/05/24 09:10 Parainfluenza 1 (PCR) Not detected (NOT DETECT) 08/05/24 09:10 Parainfluenza 2 (PCR) Not detected (NOT DETECT) 08/05/24 09:10 Parainfluenza 3 (PCR) Not detected (NOT DETECT) 08/05/24 09:10 Parainfluenza 4 (PCR) Not detected (NOT DETECT) 08/05/24 09:10 RSV (PCR) Negative (Negative) 08/05/24 01:44 RSV Type A (PCR) Not detected (NOT DETECT) 08/05/24 09:10 RSV Type B (PCR) Not detected (NOT DETECT) 08/05/24 09:10 Entero/Rhino (PCR) Not detected (NOT DETECT) 08/05/24 09:10 SARS-CoV-2 (PCR) Not detected (NOT DETECT) 08/05/24 09:10 Micro: Microbiology 08/05/24 01:34 Urine Culture - Preliminary Urine,Clean Catch 08/05/24 07:43 Blood Culture - Preliminary Blood NEGATIVE TO DATE 08/05/24 07:30 Blood Culture - Preliminary Blood NEGATIVE TO DATE Other data: The echocardiogram with normal LV size ejection fraction with no significant wall motion abnormalities A&P Assessment and plan (1) Elevated troponin: The etiology of the elevated troponin is not clear. Patient was found to have episodes of sinus tachycardia. The elevated troponin T could be related to this. No wall motion normalities by echocardiogram. The EKG changes are nonspecific.. Patient has no chest pain (2) SOB (shortness of breath): The COPD and possible respiratory infection are contributing factors. (3) Abnormal EKG: EKG shows sinus rhythm with a right bundle branch block and possible left hemifascicular block. No acute ST-T changes. (4) Bladder mass: This needs to be further evaluated. (5) Fever: Etiology is unclear. Workup is undergoing (6) Leukopenia: Also has mild thrombocytopenia. Plan May discontinue the IV heparin after 48 to 72 hours, especially in view of the leukopenia and thrombocytopenia. Consider cardiac workup, once infection is appropriately treated Consider Myocardial perfusion imaging to evaluate for any underlying coronary ischemia PDMP PDMP Reviewed: Not Reviewed Attestations 2 Medical Necessity Statement*: Deferred to the primary Coding Level of Care Code 50422 Diagnoses Elevated troponin R79.89 SOB (shortness of breath) R06.02 Abnormal EKG R94.31 Bladder mass N32.89 Fever, unspecified fever cause R50.9 Fever type: unspecified Leukopenia, unspecified type D72.819 Leukopenia type: unspecified
--- NOTE | 2024-08-06 10:07 | ECG_ITS ---
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 Measurements Intervals [place] Rate: 106 P: 67 OK: 141 QRS: 214 QRSD: 145 T: 33 QT: 314 QTc: 418 Interpretive Statements SINUS TACHYCARDIA RIGHT AXIS DEVIATION [QRS AXIS > 100] RIGHT BUNDLE BRANCH BLOCK [120+ ms QRS DURATION, UPRIGHT V1, 40+ ms S IN I/aVL/V4/V5/V6] Compared to ECG 08/06/2024 01:03:20 ST (T wave) deviation no longer present Electronically Signed On 08-06-2024 16:29:15 CDT by Linda Gonzales M.D. [email or web address]
--- NOTE | 2024-08-06 12:47 | USCV_ITS ---
Tree Richey Age: 69 Gender: M : 1955 Exam Date: 08/06/2024 14:44 Ordering Phys: Linda Gonzales MD ([email or web address]) Technologist: John Pennington Exam Location: [facility] Indication: nstemi BP: 129 / 70 HR: Rhythm: Sinus Technical Quality: Adequate MEASUREMENTS (Male / Female) Normal Values 2D ECHO LV Diastolic Diameter PLAX 3.1 cm 4.2 - 5.9 / 3.9 - 5.3 cm IVS Diastolic Thickness 1.2 cm 0.6 - 1.0 / 0.6 - 0.9 cm IVS Systolic Thickness 1.1 cm LVPW Diastolic Thickness 2.2 cm 0.6 - 1.0 / 0.6 - 0.9 cm LVPW Systolic Thickness 2.3 cm LVOT Diameter 2.1 cm LV Ejection Fraction 2D Teich 59.4 % LV Ejection Fraction MOD 4C 67.7 % LV Ejection Fraction MOD 2C 53.7 % LV Ejection Fraction 2C AL 53.8 % LA Diameter 3.3 cm RA Systolic Volume 4C AL 36.9 ml RA Systolic Volume 4C MOD 35.8 ml LA Sys Volume AL 48.1 cm cubed LA Sys Volume Index AL 22.0 cm cubed/m squared Aorta at Sinotubular Diameter 1.9 cm IVC Diameter 1.6 cm M-MODE LA Ao Ratio MM 0.9 AV Cusp Separation MM 1.5 cm FINDINGS Left Ventricle Normal left ventricular size and systolic function, EF 67%.mild left ventricular hypertrophy. No regional wall motion abnormalities. Right Ventricle Normal right ventricular size and systolic function. Right Atrium Normal right atrial size. Left Atrium Normal left atrial size. Mitral Valve Structurally normal mitral valve. Aortic Valve Structurally normal trileaflet aortic valve. Tricuspid Valve Structurally normal tricuspid valve. Pulmonic Valve Pulmonic valve not well visualized. Pericardium Normal pericardium without effusion. Aorta Normal aortic annulus size. IVC Normal inferior vena cava. CONCLUSIONS This is a limited 2D echocardiogram Normal left ventricular size and systolic function, EF 67%.mild left ventricular hypertrophy. No regional wall motion abnormalities. Normal cardiac chamber sizes No morphology abnormalities in the valves There is no pericardial effusion. There are no intracardiac masses. No similar previous studies are available for comparison. Dr Linda Gonzales MD FACC (Electronically Signed) Final Date: 06 Aug 2024 16:47 S
[2024-08-06 13:00] LABS: Partial Thromboplastin Time 77.7 SECONDS (23.9-36.7)
[2024-08-06 15:06] LABS: Bilirubin Urine Negative (Negative); Blood Urine Negative (Negative); Glucose Urine UA Negative (Normal); Ketones Urine Trace (Negative); Leukocyte Esterase Urine Negative (Negative); Nitrate Urine Negative (Negative); Protein Urine Trace (Negative); Specific Gravity, Urine 1.018 (1.005-1.030); Urine Appearance Clear (CLEAR); Urine Color Yellow (Yellow); pH Urine 5.5 (5-7)
[2024-08-06 15:11] LABS: Add Urine Microscopic? YES; Bacteria Urine None Seen /hpf; Hyaline Casts Urine 2.05 /lpf; RBC Urine 0-2 /hpf (0-2); Squamous Epithelial Cell Urine 0-5 /hpf (0-5); WBC Urine 0-5 /hpf (0-5)
[2024-08-06] MEDS: ondansetron 2 mg/ML SDV 2 mL 4 MG IVP (15:41)
--- NOTE | 2024-08-06 15:46 | P.PN_ITS ---
Subjective 2 Subjective: No new symptoms. Without additional vomiting. Headache at -04/26. Vitals/I&O/Wt Last Vital Signs Temp 102.6 F H 08/06/24 15:19 Pulse 105 H 08/06/24 11:42 Resp 16 08/06/24 03:58 BP 129/70 08/06/24 11:42 Pulse Ox 95 08/06/24 11:42 O2 Del Method Room Air 08/06/24 11:42 08/06/24 08/06/24 08/06/24 06:59 14:59 22:59 Intake Total 537.583 / 2441.499 455 / 455 Output Total 300 / 750 950 / 950 Balance 237.583 / 1691.499 -495 / -495 Weight last 48 hrs Weight 95.028 kg Weight 93.894 kg Weight 90.718 kg Physical Exam 2 Narrative: Accompanied by his and daughter on second visit Const: COMMON NORMALS: patient oriented x3 and alert GENERAL APPEARANCE: c ooperative ORIENTATION/CONSCIOUSNESS: Yes awake HENMT: COMMON NORMALS: oropharynx normal Neck/C-Spine: COMMON NORMALS: no JVD Resp: COMMON NORMALS: normal respiratory effort and clear to auscultation bilaterally AUSCULTATION: clear to auscultation bilaterally Cardio: COMMON NORMALS: no JVD, regular rhythm, S1 normal heart sound present, S2 normal heart sound present and No murmurs present (Cardio) RHYTHM: regular rhythm HEART SOUNDS: S1 normal heart sound present and S2 normal heart sound present GI: COMMON NORMALS: Normal to inspection, nondistended, normoactive bowel sounds present, Soft to palpation and non-tender PALPATION: Yes Soft to palpation Extremity: COMMON NORMALS: no joint enlargement and no pedal edema Neuro: COMMON NORMALS: patient oriented x3 and moves all extremities S ENSORIUM/ORIENTATION: Yes alert Psych: MOOD & AFFECT: Yes anxious Skin: COMMON NORMALS: no rashes or lesions noted GENERAL SKIN EXAM: no rashes or lesions noted Data 08/06/24 00:51 08/06/24 00:51 Micro: Microbiology 08/05/24 01:34 Urine Culture - Preliminary Urine,Clean Catch 08/05/24 07:43 Blood Culture - Preliminary Blood NEGATIVE TO DATE 08/05/24 07:30 Blood Culture - Preliminary Blood NEGATIVE TO DATE A&P Assessment and plan (1) Fever: Fever and chills, etiology unclear : Without new symptoms. No recurrence of vomiting. Headache is at 1-2/10. Blood culture so far with negative Gram stain. Urine culture so far without growth. Reviewed peripheral smear as well, noted leukopenia and thrombocytopenia without blasts or other abnormal cells. Tick panel pending. Additionally assess CRP, ESR, urine bacterial antigens, rapid strep, triglyceride, ferritin with bicytopenia. Haptoglobin, LDH. Today with mild transaminitis, requested hepatitis panel, HIV. Repeat chemistry noted mild RAFA creatinine up to 1.3, if improving, assess contrast CT thoracic and lumbar spine with chronic pain and prior compression fractures to assess for localized infection. Without signs of cord compression. Consider lumbar puncture, although headache is mild, without other meningeal signs, currently also on anticoagulation, received aspirin and Plavix yesterday as well. Discussed with patient and family. Obtain immunoglobulin levels. Alternatively fever possibly secondary to recurrent bladder tumor with possible malignancy. Will need follow-up and additional assessment and biopsy. Discussed with nursing, patient case coordinator. (2) Non-ST elevation WI (NSTEMI): Reviewed vitals, troponin EKG series, echocardiogram is requested. Discussed with cardiology. Follow-up echocardiogram, monitor on telemetry. He remains chest pain-free. Consideration of further assessment depending on findings, in case remaining asymptomatic and without other findings, consideration of follow- up stress test. On anticoagulation currently, monitor for risk of bleeding, reassess platelets. If tolerating and platelets allow complete 48 hours of anticoagulation. Elevated troponin (possible non-ST elevation myocardial infarction) : The patient has a rising troponin level, mildly to moderately elevated, with no current chest pain or pressure. EKG shows a branch block. Risk factors include diabetes, hypertension, hyperlipidemia, and smoking. No known coronary artery disease or prior stents. The patient is being treated as a possible small heart attack (NSTEMI). Discussed need for additional treatment and assessment, risk of progression to severe/or life-threatening WI. - Continue heparin and Plavix. Monitor for risk of bleeding. Monitor PTT. - aspirin - Follow echocardiogram (ultrasound of the heart) to assess for wall motion abnormalities - Monitor cardiac rhythm and for development of arrhythmias (3) Bladder mass: Urinary bladder mass : A 2.5 x 2.5 cm mass was found incidentally in the urinary bladder on CT scan. The etiology is unclear; could be benign or malignant. Smoking is a risk factor for bladder cancer. No current hematuria or significant urinary symptoms except some urgency and red blood cells in urine. Urology follow-up is needed for further evaluation, including possible cystoscopy and biopsy. No intervention planned until the patient is stable and afebrile. - Will need urology follow-up for cystoscopy and possible biopsy - Monitor for urinary symptoms or hematuria - No intervention until patient is stable and afebrile Plan Cytopenia: WBC. Reviewed CBC. Peripheral smear. With bicytopenia request ferritin, triglycerides, assess H score. Obtain haptoglobin, LDH. SPEP, UPEP and immunofixation. Without significant cell line elevation. Reviewed peripheral smear. Reviewed broader viral panel, unremarkable. Follow-up pending tick panel. Reviewed B12 Possible UTI: With microscopic hematuria. Fever. Her urinary urgency. Received ceftriaxone, will continue. 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 If no worsening of renal function, obtain additional imaging with contrast CT. Monitor for risk of contrast-induced nephropathy. History of chronic lower back pain due to two compressed discs, worsened with illness. No recent imaging since his 20s. No new neurologic deficits reported. Consideration of possible infection in the area given fever and back pain, but no focal findings at present. MRI may be difficult due to claustrophobia; CT with contrast may be considered if indicated. - Consider CT scan with contrast of the lumbar spine if concern for infection increases - Monitor for new or worsening neurologic symptoms Anxiety : The patient is experiencing significant anxiety related to hospitalization and prefers to be mobile. Family requests medication for anxiety. - getting very anxious, restless in the ER, required Xanax for anxiety as needed - Allow ambulation as tolerated once on the floor - Nicotine replacement Nicotine dependence : Current smoker. Smoking cessation support discussed for 3 and half minutes. Patient prefers to smoke but this prescription unable to smoke here, is agreeable to nicotine patch and lozenges while hospitalized. - Start nicotine patch - Offer nicotine lozenges for breakthrough cravings PDMP PDMP Reviewed: Not Reviewed Attestations 2 Medical Necessity Statement*: Continue admission for assessment management of recurrent fever of unclear etiology, NSTEMI, cytopenia, with newly found bladder mass, additional comorbidities. and High MDM includes amount and/or complexity of data reviewed/ordered [ resulted lab(s)/test(s), ordered lab(s)/test(s) and other healthcare professional discussion] and described risk of complication, morbidity or mortality of management as documented Diagnoses Fever, unspecified fever cause R50.9 Fever type: unspecified Non-ST elevation WI (NSTEMI) I21.4 Bladder mass N32.89
[2024-08-06 16:04] LABS: Chlamydia Trachomatis NOT DETECTED; Neisseria Gonorrhea NOT DETECTED
[2024-08-06 16:07] LABS: Amphetamines Screen Urine Negative (Negative); Barbiturates Screen Urine Negative (Negative); Benzodiazepines Screen Urine Positive (Negative); Cocaine Screen Urine Negative (Negative); Opiate Screen Urine Negative (Negative); PCP Screen Urine Negative (Negative); THC Screen Urine Negative (Negative)
[2024-08-06 17:57] LABS: Rapid Strep A Test Negative (Negative)
[2024-08-06 18:35] LABS: Erythrocyte Sedimentation Rate 8 mm/hr (0-10)
[2024-08-06 18:51] LABS: Blood Urea Nitrogen 19 mg/dL (8-23); Calcium 8.6 mg/dL (8.5-10.5); Carbon Dioxide 21 mmol/L (22-29); Chloride 101 mmol/L (98-107); Creatinine Clr Calc Pharmacy 53.7833; Glomerular Filtration Rate 46.4 mL/min (90-130); Glucose 176 mg/dL (65-115); Osmolality Calculated 285 mOsm/kg (285-295); Sodium 134 mmol/L (136-145)
[2024-08-06 18:53] LABS: HIV 1 & 2 Antibody Non-Reactive (Non-Reactiv); HIV 1 & 2 Antigen Non-Reactive (Non-Reactiv)
[2024-08-06 18:54] LABS: Partial Thromboplastin Time 92.3 SECONDS (23.9-36.7)
[2024-08-06 19:07] LABS: C Reactive Protein 58.6 mg/L (0.0-4.9); Lactate Dehydrogenase 268 U/L (135-225)
[2024-08-06 19:09] LABS: Fibrinogen 386 mg/dL (174-498)
[2024-08-06 19:11] LABS: Triglycerides 201 mg/dL (0-150)
[2024-08-06 19:25] LABS: Ferritin 2842 ng/mL (30-400); Immunoglobulin IGA 138 mg/dL (70-400); Immunoglobulin IGG 759 mg/dL (700-1600); Immunoglobulin IGM 104 mg/dL (40-230)
[2024-08-06 19:57] LABS: Glucose Point of Care 191 mg/dL (70-110)
[2024-08-06] MEDS: lactated ringers 1,000 ML 75 ML IV (20:12)
[2024-08-06] MEDS: atorvastatin 40 mg Tablet PO (20:13)
[2024-08-06] MEDS: cefTRIAXone 1,000 mg SDV 1000 MG IVP (20:13)
[2024-08-07] VITALS (8 sets, daily range): BP systolic 105–138; BP diastolic 41–74; PULSE 92–115; RESP 15–20; TEMP 36.8–37.4; O2SAT 91–99
[2024-08-07 01:05] LABS: Basophils % 0.9 %; Eosinophils % 0.5 %; Hematocrit 39.1 % (37-53); Lymphocytes # 0.5 10^3/uL (0.8-4.8); Mean Corpuscular Hemoglobin 31.4 pg (27-33); Mean Corpuscular Volume 95.1 fl (82-101); Mean Platelet Volume 10.9 fL (7.4-10.4); Monocytes # 0.2 10^3/uL (0.2-0.9); Monocytes % 8.9 %; Neutrophils # 1.41 10^3/uL (1.8-7.7); Neutrophils % 66.2 %; Nucleated Red Blood Cells % 0 %; Platelet Count 92 10^3/cmm (157-399); Red Blood Count 4.11 10^6/uL (3.85-5.65); Red Cell Distribution Width 13.2 % (12.1-15.1); White Blood Count 2.13 10^3/uL (3.29-11.43)
[2024-08-07 01:16] LABS: Alanine Aminotransferase 76 U/L (0-41); Albumin Level 3.4 g/dL (3.5-5.2); Alkaline Phosphatase 105 U/L (40-130); Anion Gap 15.9 (5-19); Aspartate Amino Transferase 81 U/L (0-40); Blood Urea Nitrogen 17 mg/dL (8-23); Calcium 8.4 mg/dL (8.5-10.5); Carbon Dioxide 21 mmol/L (22-29); Chloride 101 mmol/L (98-107); Creatinine Clr Calc Pharmacy 53.7833; Globulin 2.6 g/dL (1.3-4.6); Glomerular Filtration Rate 46.4 mL/min (90-130); Glucose 171 mg/dL (65-115); Osmolality Calculated 284 mOsm/kg (285-295); Potassium 3.9 mmol/L (3.5-5.1); Sodium 134 mmol/L (136-145); Total Bilirubin 0.6 mg/dL (0.15-1.2)
[2024-08-07 01:20] LABS: Partial Thromboplastin Time 71.1 SECONDS (23.9-36.7)
[2024-08-07 03:49] LABS: Lyme AB Screen <0.90 index
[2024-08-07] MEDS: heparin drip 25,000 UNIT/500 ML PREMIX 14 UNIT IV (05:17)
[2024-08-07 05:37] LABS: Glucose Point of Care 139 mg/dL (70-110)
[2024-08-07 06:37] LABS: Partial Thromboplastin Time 80.2 SECONDS (23.9-36.7)
[2024-08-07] MEDS: doxycycline 100 MG in sodium chloride 0.9% (plus) 100 ML IV (08:21)
[2024-08-07] MEDS: nicotine 21 mg Patch 1 PATCH TRANSDERMA (08:22)
[2024-08-07] MEDS: aspirin 81 mg EC Tablet 162 MG PO (08:22)
[2024-08-07] MEDS: acetaminophen 325 mg Tablet 650 MG PO (08:22)
[2024-08-07] MEDS: pantoprazole DR 40 mg Tablet PO (08:23)
[2024-08-07] MEDS: ALPRAZolam 0.5 mg Tablet PO ×2 (08:23→20:14)
--- NOTE | 2024-08-07 09:07 | PC.NURSE ---
visitor at bedside daughter of pt is in room visiting from [place]. Dgtr stated she heard about the treatment plans and discussion by nurse and doctors due because pt has been on speaker phone.
[2024-08-07] MEDS: potassium chloride ER 20 mEq Tablet 40 MEQ PO (09:52)
[2024-08-07] MEDS: sodium chloride 0.9% 1,000 ML 500 ML IV (09:53)
--- NOTE | 2024-08-07 11:20 | P.PN_ITS ---
Subjective 2 Subjective: 69-year-old male admitted with dizziness nausea vomiting and fever. 3 days preceding this hospitalization he had nausea vomiting shaking chills with teeth chattering improved with Tylenol but recurring. That prompted evaluation in the emergency department where he was found to be sick with abnormal labs noted to have CRP 58 and lymphopenia and leukopenia plus thrombocytopenia. Patient and his moved from [place] where they have lived the last 5 years. They have a daughter and new grandchild in [place] so moved here 3 weeks ago. They do not have a new physician. Patient's noticed a tick on her skin but found none on him. Patient had previously been healthy until he had some heart palpitations and felt dizzy and of last year. He saw physician in [place] and on his phone he is able to show me medical records which I have documented here below . Patient was diagnosed with diabetes and hyperlipidemia with A1c 8.1 cholesterol 198 triglycerides 362 LDL 93. He is treated with metformin 500 mg twice a day rosuvastatin 20 mg daily and lisinopril 10 mg daily. On February 2020 for his white count 7.2 hematocrit 48.7 platelets 190 lymphocytes at that time 1.26 which is low normal. His TSH 1.77 in February sodium 139 potassium 5.2 chloride 106 CO2 26 BUN 8 creatinine 1.18 with glucose 201. Alk phos 152 other LFTs normal his echo showed EF 59% within normal LV and normal diastolic function. EKG showed sinus rhythm 100 with right bundle branch block Medications: Medication Review Details: Current Medications Acetaminophen (Acetaminophen 325 Mg Tablet) 650 mg PO Q6H PRN PRN Reason: Mild/Mod Pain Or Temp >/= 101 Last Admin: 08/06/24 07:53 Dose: 650 mg Alprazolam (Alprazolam 0.5 Mg Tablet) 0.5 mg PO TID PRN PRN Reason: ANXIETY Last Admin: 08/06/24 07:53 Dose: 0.5 mg Aspirin (Aspirin 81 Mg Ec Tablet) 162 mg PO DAILY [facility] Last Admin: 08/06/24 07:53 Dose: 162 mg Atorvastatin Calcium (Atorvastatin 40 Mg Tablet) 40 mg PO BEDTIME [facility] Last Admin: 08/05/24 22:13 Dose: 40 mg Ceftriaxone Sodium (Ceftriaxone 1,000 Mg Sdv) 1,000 mg IVP Q24H [facility]; Protocol Last Admin: 08/05/24 22:13 Dose: 1,000 mg Heparin Sodium (Porcine) (Heparin 5,000 Unit/Ml Inj 1 Ml) 0 unit IVP PRN PRN; Protocol PRN Reason: Heparin Weight Based Protocol -Subsequent Bolus Heparin Sodium/Sodium Chloride (Heparin Drip) 25,000 unit in 500 mls @ 0 mls/hr IV CONT [facility]; Protocol Last Titration: 08/06/24 01:24 Dose: 11.02 unit/kg/hr, 20 mls/hr Lactated Ringer's (Lactated Ringers) 1,000 mls @ 75 mls/hr IV .[id number] [facility]ANNA Last Infusion: 08/06/24 04:06 Dose: 0 mls/hr Doxycycline Hyclate 100 mg/ (Sodium Chloride) 100 mls @ 100 mls/hr IV Q12H [facility]; Protocol Last Infusion: 08/06/24 08:27 Dose: 0 mls/hr Nicotine (Nicotine 21 Mg Patch) 1 patch TRANSDERMA DAILY [facility] Last Admin: 08/06/24 07:53 Dose: 1 patch Nicotine Polacrilex (Nicotine 4 Mg Lozenge) 4 mg MUCOUS MEM Q4H PRN PRN Reason: NICOTINE CRAVINGS Ondansetron HCl (Ondansetron 2 Mg/Ml Sdv 2 Ml) 4 mg IVP Q8H PRN PRN Reason: vomiting, or N/V if npo Pantoprazole Sodium (Pantoprazole Dr 40 Mg Tablet) 40 mg PO DAILY [facility] Last Admin: 08/06/24 07:54 Dose: 40 mg Vitals/I&O/Wt Last Vital Signs Temp 98.8 F 08/07/24 07:43 Pulse 115 H 08/07/24 07:43 Resp 15 08/07/24 07:43 BP 134/74 08/07/24 07:43 Pulse Ox 92 08/07/24 07:43 O2 Del Method Room Air 08/07/24 04:00 08/06/24 08/07/24 08/07/24 22:59 06:59 14:59 Intake Total 870.65 / 1325.65 727.733 / 2053.383 460 / 460 Output Total 0 / 950 800 / 1750 Balance 870.65 / 375.65 -72.267 / 303.383 460 / 460 Weight last 48 hrs Weight 92.85 kg Weight 95.028 kg Weight 93.894 kg Physical Exam 2 Narrative: General well-developed well-nourished modestly overweight male in no acute cardiopulmonary distress Mentation is alert and oriented x 3 CV regular rate and rhythm no loud murmurs Lungs clear to auscultation but poor effort and coordination with exam Abdomen positive bowel sounds soft mild nonspecific tenderness but no rebound umbilical hernias noted Calves no edema Data 08/07/24 00:53 08/07/24 00:53 Micro: Microbiology 08/05/24 13:18 Legionella Urinary Antigen - Final Urine,Clean Catch Bacterial Antigens - Final 08/05/24 01:34 Urine Culture - Preliminary Urine,Clean Catch 08/05/24 07:43 Blood Culture - Preliminary Blood NEGATIVE TO DATE 08/05/24 07:30 Blood Culture - Preliminary Blood NEGATIVE TO DATE A&P Assessment and plan (1) Fever: Continued fevers as high as 102.6 headache and nausea decreased. No recurrence of vomiting. Blood culture so far with negative Gram stain. Urine culture so far without growth. Reviewed peripheral smear as well, noted leukopenia and thrombocytopenia without blasts or other abnormal cells. Tick panel negative Lyme. Additional portions of the panel still pending CRP 58.6, ESR 8, urine bacterial antigens, rapid strep negative, triglyceride, ferritin with bicytopenia. Haptoglobin, LDH. Immunology IgG IgA and IgM normal electrophoresis is pending. Viral serologies negative COVID, influenza and strep negative HIV negative Urine negative for leukocyte esterase, nitrates, blood but there is a 2.5 cm mass incidentally found which does not explain his fevers Today with mild transaminitis, requested hepatitis panel, HIV. Repeat chemistry noted mild RAFA creatinine up to 1.3, if improving, assess contrast CT thoracic and lumbar spine with chronic pain and prior compression fractures to assess for localized infection. Without signs of cord compression. Consider lumbar puncture, although headache is mild, without other meningeal signs, currently also on anticoagulation, received aspirin and Plavix yesterday as well. Discussed with patient and family. I doubt fevers related to the bladder tumor but there is some suspicion that he could have a hematologic malignancy (2) Non-ST elevation MA (NSTEMI): Reviewed vitals, troponin EKG series, echocardiogram is requested. Discussed with cardiology. Follow-up echocardiogram, monitor on telemetry. He remains chest pain-free. Consideration of further assessment depending on findings, in case remaining asymptomatic and without other findings, consideration of follow- up stress test. On anticoagulation currently, monitor for risk of bleeding, reassess platelets. If tolerating and platelets allow complete 48 hours of anticoagulation. Elevated troponin (possible non-ST elevation myocardial infarction) : The patient has a rising troponin level, mildly to moderately elevated, with no current chest pain or pressure. EKG shows a branch block. Risk factors include diabetes, hypertension, hyperlipidemia, and smoking. No known coronary artery disease or prior stents. The patient is being treated as a possible small heart attack (NSTEMI). Discussed need for additional treatment and assessment, risk of progression to severe/or life-threatening MA. - Continue heparin and Plavix. Monitor for risk of bleeding. Monitor PTT. - aspirin - Follow echocardiogram (ultrasound of the heart) to assess for wall motion abnormalities - Monitor cardiac rhythm and for development of arrhythmias Additional testing intended by Dr. Gonzales but not until the patient more stable (3) Bladder mass: Urinary bladder mass : A 2.5 x 2.5 cm mass was found incidentally in the urinary bladder on CT scan. The etiology is unclear; could be benign or malignant. Smoking is a risk factor for bladder cancer. No current hematuria or significant urinary symptoms except some urgency and red blood cells in urine. Urology follow-up is needed for further evaluation, including possible cystoscopy and biopsy. No intervention planned until the patient is stable and afebrile. - Will need urology follow-up for cystoscopy and possible biopsy - Monitor for urinary symptoms or hematuria - No intervention until patient is stable and afebrile I discussed with patient that urology is available at [facility] in [place] for outpatient cystoscopy and probable removal of incidentally found bladder tumor Plan Chronic lower back pain with two compressed discs self-reported however the CT scan of the abdomen pelvis does not show significant compression fractures at any level - Consider CT scan with contrast of the lumbar spine if concern for infection increases - Monitor for new or worsening neurologic symptoms Anxiety : The patient is experiencing significant anxiety related to hospitalization and prefers to be mobile. Family requests medication for anxiety. - getting very anxious, restless in the ER, required Xanax for anxiety as needed - Allow ambulation as tolerated once on the floor - Nicotine replacement Nicotine dependence : Current smoker. Smoking cessation support discussed for 3 and half minutes. Patient prefers to smoke but this prescription unable to smoke here, is agreeable to nicotine patch and lozenges while hospitalized. - Start nicotine patch - Offer nicotine lozenges for breakthrough cravings PDMP PDMP Reviewed: Not Reviewed Attestations 2 Medical Necessity Statement*: Patient remains in hospital for monitoring regarding fever of unknown origin Coding Level of Care Code Acute Code for Chg Fwd Diagnoses Fever, unspecified fever cause R50.9 Fever type: unspecified Non-ST elevation MA (NSTEMI) I21.4 Bladder mass N32.89 Time Spent (min) 45
--- NOTE | 2024-08-07 11:29 | PC.CHAP ---
Pastoral Care Encounter/Spiritual Assessment Type of Contact [] Declined packing room inspector visit [] Patient/Family/Request visit [] Outpatient visit [] Follow-up visit [] Physician referral [] Code/Alert [] Routine visit [] Staff referral [] Actively dying [x] Patient sleeping [] Family support [] [] Out of room [] Palliative care [] [] Receiving care in room [] Pre-surgical visit [] Trauma [] Long length of stay [] ICU visit [] Other: Relational/Emotional Strength [] Patient feels connected with others/family/visitors/staff [] Distress [] Loneliness/isolation [] Abandonment Spirituality of Patient [] Person of Rosalinda [] Attends Yarsani of their Rosalinda [] Believes in Prayer [] Reads Bible or Mosque materials [] There are Spiritual issues to be addressed Distance Learning Unit Leader Interventions [] Prayer [] Active listening [] Non-anxious presence [] Spiritual/emotional support [] Crisis/trauma care [] Spiritual counseling [] Bereavement support [] Provided bereavement packet [] Provided Bible/devotional materials [] Provided toy/stuffed animal, coloring book to patient or family member [] Provided Communion [] Anointing/[place] [] Salvation [] Completed spiritual assessment [] Other: Impact on Illness or Injury [] Angry [] Fearful [] Anxious [] Often cries [] Exhaustion [] Unable to work [] Unable to attend sabianist [] Unable to walk/stand [] Unable to read [] Unable to drive [] Unable to eat/drink [] Unable to sleep [] Unable to be with family [] Patient intubated [] Other: Summary Time spent with patient
[2024-08-07 11:46] LABS: Glucose Point of Care 122 mg/dL (70-110)
[2024-08-07 12:47] LABS: Partial Thromboplastin Time 59.3 SECONDS (23.9-36.7)
--- NOTE | 2024-08-07 13:23 | P.PN_ITS ---
Subjective 2 Subjective: Patient is sleepy lethargic denies any chest pain Medications: Medication Review Details: Current Medications Acetaminophen (Acetaminophen 325 Mg Tablet) 650 mg PO Q6H PRN PRN Reason: Mild/Mod Pain Or Temp >/= 101 Last Admin: 08/06/24 07:53 Dose: 650 mg Alprazolam (Alprazolam 0.5 Mg Tablet) 0.5 mg PO TID PRN PRN Reason: ANXIETY Last Admin: 08/06/24 07:53 Dose: 0.5 mg Aspirin (Aspirin 81 Mg Ec Tablet) 162 mg PO DAILY [facility] Last Admin: 08/06/24 07:53 Dose: 162 mg Atorvastatin Calcium (Atorvastatin 40 Mg Tablet) 40 mg PO BEDTIME [facility] Last Admin: 08/05/24 22:13 Dose: 40 mg Ceftriaxone Sodium (Ceftriaxone 1,000 Mg Sdv) 1,000 mg IVP Q24H [facility]; Protocol Last Admin: 08/05/24 22:13 Dose: 1,000 mg Heparin Sodium (Porcine) (Heparin 5,000 Unit/Ml Inj 1 Ml) 0 unit IVP PRN PRN; Protocol PRN Reason: Heparin Weight Based Protocol -Subsequent Bolus Heparin Sodium/Sodium Chloride (Heparin Drip) 25,000 unit in 500 mls @ 0 mls/hr IV CONT [facility]; Protocol Last Titration: 08/06/24 01:24 Dose: 11.02 unit/kg/hr, 20 mls/hr Lactated Ringer's (Lactated Ringers) 1,000 mls @ 75 mls/hr IV .[id number] [facility] Last Infusion: 08/06/24 04:06 Dose: 0 mls/hr Doxycycline Hyclate 100 mg/ (Sodium Chloride) 100 mls @ 100 mls/hr IV Q12H [facility]; Protocol Last Infusion: 08/06/24 08:27 Dose: 0 mls/hr Nicotine (Nicotine 21 Mg Patch) 1 patch TRANSDERMA DAILY [facility] Last Admin: 08/06/24 07:53 Dose: 1 patch Nicotine Polacrilex (Nicotine 4 Mg Lozenge) 4 mg MUCOUS MEM Q4H PRN PRN Reason: NICOTINE CRAVINGS Ondansetron HCl (Ondansetron 2 Mg/Ml Sdv 2 Ml) 4 mg IVP Q8H PRN PRN Reason: vomiting, or N/V if npo Pantoprazole Sodium (Pantoprazole Dr 40 Mg Tablet) 40 mg PO DAILY [facility] Last Admin: 08/06/24 07:54 Dose: 40 mg Vitals/I&O/Wt Last Vital Signs Temp 98.8 F 08/07/24 07:43 Pulse 99 08/07/24 12:00 Resp 20 H 08/07/24 12:00 BP 138/73 08/07/24 12:00 Pulse Ox 95 08/07/24 12:00 O2 Del Method Room Air 08/07/24 12:00 08/06/24 08/07/24 08/07/24 22:59 06:59 14:59 Intake Total 870.65 / 1325.65 727.733 / 2053.383 1820 / 1820 Output Total 0 / 950 800 / 1750 350 / 350 Balance 870.65 / 375.65 -72.267 / 915.921 3623 / 1470 Weight last 48 hrs Weight 204 lb 11.2 oz Weight 209 lb 8 oz Physical Exam 2 Const: OTHER: GENERAL: Patient is Fatigued but arousable HEART: Regular S1 and S2. No murmur, rub or gallop. LUNGS: Decreased breath sound bilaterally. CENTRAL NERVOUS SYSTEM: Grossly nonfocal. EXTREMITIES: Lower extremities with out edema bilaterally. Data 08/07/24 00:53 08/07/24 00:53 Micro: Microbiology 08/06/24 16:46 Group A Streptococcus Rapid Screen - Preliminary Throat 08/05/24 13:18 Legionella Urinary Antigen - Final Urine,Clean Catch Bacterial Antigens - Final 08/05/24 01:34 Urine Culture - Preliminary Urine,Clean Catch A&P Assessment and plan (1) Elevated troponin: Could be demand ischemia, patient may have underlying coronary artery disease may need to be evaluated once recovered from infection, there is no arrhythmia or chest pain noted (2) SOB (shortness of breath): COPD exacerbation treatment as per medicine (3) Abnormal EKG: EKG shows sinus rhythm with a right bundle branch block and possible left hemifascicular block. No acute ST-T changes. Continue to monitor on telemetry (4) Bladder mass: As per medicine (5) Fever: As per medicine continue antibiotic (6) Leukopenia: With thrombocytopenia Plan Continue antibiotics Continue heparin Continue medical management Once recovered from infection we will decide regarding left heart cath versus stress test. I have discussion with the patient's family his and daughter by bedside they are all in agreement PDMP PDMP Reviewed: Not Reviewed Attestations 2 Medical Necessity Statement*: Patient require continuation hospitalization for above defined care Coding Level of Care Code Acute Code for Chg Fwd Diagnoses Elevated troponin R79.89 SOB (shortness of breath) R06.02 Abnormal EKG R94.31 Bladder mass N32.89 Fever, unspecified fever cause R50.9 Fever type: unspecified Leukopenia, unspecified type D72.819 Leukopenia type: unspecified
[2024-08-07] MEDS: lactated ringers 1,000 ML 75 ML IV (14:00)
[2024-08-07 16:46] LABS: Glucose Point of Care 150 mg/dL (70-110)
[2024-08-07] MEDS: doxycycline 100 mg Tablet PO (20:14)
[2024-08-07] MEDS: cefTRIAXone 1,000 mg SDV 1000 MG IVP (20:14)
[2024-08-07] MEDS: atorvastatin 40 mg Tablet PO (20:15)
[2024-08-07 20:23] LABS: Glucose Point of Care 159 mg/dL (70-110)
[2024-08-08] VITALS (7 sets, daily range): BP systolic 125–138; BP diastolic 46–74; PULSE 88–102; RESP 13–24; TEMP 36.4–37.2; O2SAT 94–97
[2024-08-08] MEDS: lactated ringers 1,000 ML 75 ML IV (01:32)
[2024-08-08] MEDS: acetaminophen 325 mg Tablet 650 MG PO ×2 (01:40→10:13)
[2024-08-08 04:03] LABS: Basophils % 0.8 %; Eosinophils # 0.1 10^3/uL (0.0-0.8); Eosinophils % 3.8 %; Hematocrit 35.7 % (37-53); Lymphocytes # 1.2 10^3/uL (0.8-4.8); Lymphocytes % 44.9 %; Mean Corpuscular HGB Conc 33.6 g/dL (30-55); Mean Corpuscular Hemoglobin 31.7 pg (27-33); Mean Corpuscular Volume 94.4 fl (82-101); Mean Platelet Volume 11.9 fL (7.4-10.4); Monocytes # 0.3 10^3/uL (0.2-0.9); Monocytes % 9.4 %; Neutrophils # 1.08 10^3/uL (1.8-7.7); Neutrophils % 40.7 %; Nucleated Red Blood Cells % 0 %; Platelet Count 78 10^3/cmm (157-399); Red Blood Count 3.78 10^6/uL (3.85-5.65); Red Cell Distribution Width 13.3 % (12.1-15.1); White Blood Count 2.65 10^3/uL (3.29-11.43)
[2024-08-08 04:20] LABS: Alanine Aminotransferase 85 U/L (0-41); Albumin Level 3.4 g/dL (3.5-5.2); Alkaline Phosphatase 119 U/L (40-130); Anion Gap 13.1 (5-19); Aspartate Amino Transferase 78 U/L (0-40); Blood Urea Nitrogen 18 mg/dL (8-23); Calcium 8.6 mg/dL (8.5-10.5); Carbon Dioxide 24 mmol/L (22-29); Chloride 103 mmol/L (98-107); Creatinine Clr Calc Pharmacy 66.4389; Globulin 2.5 g/dL (1.3-4.6); Glucose 117 mg/dL (65-115); Osmolality Calculated 285 mOsm/kg (285-295); Potassium 4.1 mmol/L (3.5-5.1); Sodium 136 mmol/L (136-145); Total Bilirubin 0.5 mg/dL (0.15-1.2); Total Protein 5.9 g/dL (6.6-8.7)
[2024-08-08 06:00] LABS: Glucose Point of Care 129 mg/dL (70-110)
[2024-08-08] MEDS: pantoprazole DR 40 mg Tablet PO (09:27)
[2024-08-08] MEDS: doxycycline 100 mg Tablet PO ×2 (09:27→18:22)
[2024-08-08] MEDS: nicotine 21 mg Patch 1 PATCH TRANSDERMA (09:27)
[2024-08-08] MEDS: ALPRAZolam 0.5 mg Tablet PO ×2 (09:27→20:10)
--- NOTE | 2024-08-08 11:32 | PM.PN ---
Subjective Subjective: 69-year-old male admitted with recurring high fevers leukopenia, lymphocytopenia, arthralgias, thrombocytopenia and elevated LFTs was started on doxycycline on the . He is being worked up for possible leptospirosis and brucellosis despite no history really showing at risk exposure. He has negative blood cultures chest x-ray urine for usual infections sources he has a bladder tumor 2.5 centimeters but no associated infection or hydronephrosis. Notably he came in with troponin 33 at baseline kelvin to 43 then 52 to. Because of his acute illness and malaise stress test and angiogram were not pursued but I discussed this with Dr. Bashir and likely will proceed with stress test in the morning. Patient states he feels somewhat better. Interestingly his leukopenia though still present is stable and slightly improved. Lymphocytopenia has resolved in the low normal range. Appears to be in response to doxycycline but we are not clear on what we are treating yet Vitals/I&O/Wt Last Vital Signs Temp 97.5 F L 08/08/24 07:17 Pulse 97 08/08/24 11:22 Resp 14 08/08/24 11:22 BP 129/74 08/08/24 11:22 Pulse Ox 95 08/08/24 11:22 O2 Del Method Room Air 08/08/24 11:22 08/07/24 08/08/24 08/08/24 22:59 06:59 14:59 Intake Total 680 / 2500.1 865 / 3365.1 Output Total 550 / 900 Balance 130 / 1600.1 865 / 2465.1 Weight last 48 hrs Weight 92.624 kg Weight 92.85 kg Physical Exam Narrative: General well-developed well-nourished male in no acute cardiopulmonary distress CV regular rate and rhythm Lungs clear to auscultation bilaterally Abdomen positive bowel sounds Calves no tenderness to pretibial edema Data 08/08/24 02:22 08/08/24 02:22 Micro: Microbiology 08/06/24 16:46 Group A Streptococcus Rapid Screen - Final Throat A&P Assessment and plan (1) Fever: Fevers have resolved headache and nausea decreased or near resolved. No recurrence of vomiting. Blood and urine cultures negative. White count 2.65 lymphocytes 1.2 and lymphocyte percent percent kelvin from 23 to 44.9 CRP 58.6, ESR 8, urine bacterial antigens, rapid strep negative, triglyceride, ferritin with bicytopenia. Haptoglobin, LDH. Immunology IgG IgA and IgM normal electrophoresis is pending. Viral serologies negative COVID, influenza and strep negative HIV negative Urine negative for leukocyte esterase, nitrates, blood but there is a 2.5 cm mass incidentally found which does not explain his fevers Today with mild transaminitis, requested hepatitis panel, HIV. Repeat chemistry noted mild RAFA creatinine up to 1.3, if improving, assess contrast CT thoracic and lumbar spine with chronic pain and prior compression fractures to assess for localized infection. Without signs of cord compression. Consider lumbar puncture, although headache is mild, without other meningeal signs, currently also on anticoagulation, received aspirin and Plavix yesterday as well. Discussed with patient and family. This appears to be infectious some sort of atypical infection since it responded to doxycycline. Brucella total antibody agglutination is pending as is QuantiFERON gold and leptospirosis. Lyme antibody was negative Chlamydia trachomatous PCR negative HIV negative and gonorrhea negative group A strep negative (2) Non-ST elevation [place] (NSTEMI): Reviewed vitals, troponin EKG series, echocardiogram is requested. Discussed with cardiology. Follow-up echocardiogram, monitor on telemetry. He remains chest pain-free. Consideration of further assessment depending on findings, in case remaining asymptomatic and without other findings, consideration of follow-up stress test. On anticoagulation currently, monitor for risk of bleeding, reassess platelets. If tolerating and platelets allow complete 48 hours of anticoagulation. Elevated troponin (possible non-ST elevation myocardial infarction) : The patient has a rising troponin level, mildly to moderately elevated, with no current chest pain or pressure. EKG shows a branch block. Risk factors include diabetes, hypertension, hyperlipidemia, and smoking. No known coronary artery disease or prior stents. The patient is being treated as a possible small heart attack (NSTEMI). Discussed need for additional treatment and assessment, risk of progression to severe/or life-threatening [place]. - Continue heparin and Plavix. Monitor for risk of bleeding. Monitor PTT. - aspirin - Follow echocardiogram (ultrasound of the heart) to assess for wall motion abnormalities - Monitor cardiac rhythm and for development of arrhythmias Spoke with Dr. Bashir and plan stress test in the morning (3) Bladder mass: Urinary bladder mass : A 2.5 x 2.5 cm mass was found incidentally in the urinary bladder on CT scan. The etiology is unclear; could be benign or malignant. Smoking is a risk factor for bladder cancer. No current hematuria or significant urinary symptoms except some urgency and red blood cells in urine. Urology follow-up is needed for further evaluation, including possible cystoscopy and biopsy. No intervention planned until the patient is stable and afebrile. - Will need urology follow-up for cystoscopy and possible biopsy - Monitor for urinary symptoms or hematuria - No intervention until patient is stable and afebrile I discussed with patient that urology is available at [facility] in [place] for outpatient cystoscopy and probable removal of incidentally found bladder tumor Plan Patient is improved. 1 more night in the hospital to monitor white count and lymphocyte count and for fevers. If no fevers can go home on doxycycline following his stress test PDMP PDMP Reviewed: Not Reviewed Attestations Medical Necessity Statement*: 1 more midnight in the hospital for follow-up doxycycline treatment for atypical infection and for stress test regarding his heart Coding Level of Care Code 29038 Diagnoses Fever, unspecified fever cause R50.9 Fever type: unspecified Non-ST elevation IN (NSTEMI) I21.4 Bladder mass N32.89 Time Spent (min) 40
[2024-08-08 11:49] LABS: Glucose Point of Care 182 mg/dL (70-110)
--- NOTE | 2024-08-08 13:25 | PM.PN ---
Subjective Subjective: Patient denies chest pain, Fever is better Medications: Medication Review Details: Current Medications Acetaminophen (Acetaminophen 325 Mg Tablet) 650 mg PO Q6H PRN PRN Reason: Mild/Mod Pain Or Temp >/= 101 Last Admin: 08/06/24 07:53 Dose: 650 mg Alprazolam (Alprazolam 0.5 Mg Tablet) 0.5 mg PO TID PRN PRN Reason: ANXIETY Last Admin: 08/06/24 07:53 Dose: 0.5 mg Aspirin (Aspirin 81 Mg Ec Tablet) 162 mg PO DAILY BRYANNA Last Admin: 08/06/24 07:53 Dose: 162 mg Atorvastatin Calcium (Atorvastatin 40 Mg Tablet) 40 mg PO BEDTIME BRYANNA Last Admin: 08/05/24 22:13 Dose: 40 mg Ceftriaxone Sodium (Ceftriaxone 1,000 Mg Sdv) 1,000 mg IVP Q24H BRYANNA; Protocol Last Admin: 08/05/24 22:13 Dose: 1,000 mg Heparin Sodium (Porcine) (Heparin 5,000 Unit/Ml Inj 1 Ml) 0 unit IVP PRN PRN; Protocol PRN Reason: Heparin Weight Based Protocol -Subsequent Bolus Heparin Sodium/Sodium Chloride (Heparin Drip) 25,000 unit in 500 mls @ 0 mls/hr IV CONT BRYANNA; Protocol Last Titration: 08/06/24 01:24 Dose: 11.02 unit/kg/hr, 20 mls/hr Lactated Ringer's (Lactated Ringers) 1,000 mls @ 75 mls/hr IV .[id number] BRYANNA Last Infusion: 08/06/24 04:06 Dose: 0 mls/hr Doxycycline Hyclate 100 mg/ (Sodium Chloride) 100 mls @ 100 mls/hr IV Q12H BRYANNA; Protocol Last Infusion: 08/06/24 08:27 Dose: 0 mls/hr Nicotine (Nicotine 21 Mg Patch) 1 patch TRANSDERMA DAILY [facility] Last Admin: 08/06/24 07:53 Dose: 1 patch Nicotine Polacrilex (Nicotine 4 Mg Lozenge) 4 mg MUCOUS MEM Q4H PRN PRN Reason: NICOTINE CRAVINGS Ondansetron HCl (Ondansetron 2 Mg/Ml Sdv 2 Ml) 4 mg IVP Q8H PRN PRN Reason: vomiting, or N/V if npo Pantoprazole Sodium (Pantoprazole Dr 40 Mg Tablet) 40 mg PO DAILY [facility] Last Admin: 08/06/24 07:54 Dose: 40 mg Vitals/I&O/Wt Last Vital Signs Temp 97.5 F L 08/08/24 07:17 Pulse 97 08/08/24 11:22 Resp 14 08/08/24 11:22 BP 129/74 08/08/24 11:22 Pulse Ox 95 08/08/24 11:22 O2 Del Method Room Air 08/08/24 11:22 08/07/24 08/08/24 08/08/24 22:59 06:59 14:59 Intake Total 680 / 2500.1 865 / 3365.1 Output Total 550 / 900 Balance 130 / 1600.1 865 / 2465.1 Weight last 48 hrs Weight 204 lb 3.2 oz Weight 204 lb 11.2 oz Physical Exam Const: OTHER: GENERAL: Patient is Fatigued but arousable HEART: Regular S1 and S2. No murmur, rub or gallop. LUNGS: Decreased breath sound bilaterally. CENTRAL NERVOUS SYSTEM: Grossly nonfocal. EXTREMITIES: Lower extremities with out edema bilaterally. Data 08/08/24 02:22 08/08/24 02:22 Micro: Microbiology 08/06/24 16:46 Group A Streptococcus Rapid Screen - Final Throat A&P Assessment and plan (1) Elevated troponin: Could be demand ischemia, patient may have underlying coronary artery disease may need to be evaluated once recovered from infection, there is no arrhythmia or chest pain noted (2) SOB (shortness of breath): COPD exacerbation treatment as per medicine (3) Abnormal EKG: EKG shows sinus rhythm with a right bundle branch block and possible left hemifascicular block. No acute ST-T changes. Continue to monitor on telemetry (4) Bladder mass: As per medicine (5) Fever: As per medicine continue antibiotic (6) Leukopenia: With thrombocytopenia Plan Continue current medication Discontinue heparin Stress test for risk stratification before discharge most likely on Friday since it is a long weekend and stress test service may not be available on Friday PDMP PDMP Reviewed: Not Reviewed Attestations Medical Necessity Statement*: As per medicine Coding Level of Care Code Acute Code for Chg Fwd Diagnoses Elevated troponin R79.89 SOB (shortness of breath) R06.02 Abnormal EKG R94.31 Bladder mass N32.89 Fever, unspecified fever cause R50.9 Fever type: unspecified Leukopenia, unspecified type D72.819 Leukopenia type: unspecified
[2024-08-08 17:08] LABS: Glucose Point of Care 142 mg/dL (70-110)
--- NOTE | 2024-08-08 19:03 | PC.NURSE ---
pt stated he has not had a bowel movement today. Offered pt a prune juice. Pt ok to take it first.
[2024-08-08] MEDS: atorvastatin 40 mg Tablet PO (20:10)
[2024-08-08] MEDS: cefTRIAXone 1,000 mg SDV 1000 MG IVP (20:11)
[2024-08-08 20:18] LABS: Glucose Point of Care 236 mg/dL (70-110)
[2024-08-09 04:00] VITALS: BP 139/71; PULSE 94; RESP 21; TEMP 36.5; O2SAT 95
[2024-08-09 04:32] LABS: Eosinophils # 0.2 10^3/uL (0.0-0.8); Eosinophils % 3.9 %; Hematocrit 39.8 % (37-53); Lymphocytes # 1.8 10^3/uL (0.8-4.8); Lymphocytes % 42.8 %; Mean Corpuscular HGB Conc 33.2 g/dL (30-55); Mean Corpuscular Hemoglobin 31.7 pg (27-33); Mean Corpuscular Volume 95.4 fl (82-101); Mean Platelet Volume 11.4 fL (7.4-10.4); Monocytes # 0.4 10^3/uL (0.2-0.9); Monocytes % 8.8 %; Neutrophils # 1.78 10^3/uL (1.8-7.7); Neutrophils % 43.3 %; Nucleated Red Blood Cells % 0 %; Platelet Count 108 10^3/cmm (157-399); Red Blood Count 4.17 10^6/uL (3.85-5.65); Red Cell Distribution Width 13.3 % (12.1-15.1); White Blood Count 4.11 10^3/uL (3.29-11.43)
[2024-08-09] MEDS: ALPRAZolam 0.5 mg Tablet PO ×3 (04:50→21:05)
[2024-08-09] MEDS: magnesium hydroxide 30 mL UDC PO (05:38)
[2024-08-09 06:31] LABS: Glucose Point of Care 129 mg/dL (70-110)
[2024-08-09 08:00] VITALS: BP 109/67; PULSE 95; RESP 20; TEMP 36.5; O2SAT 93
[2024-08-09] MEDS: pantoprazole DR 40 mg Tablet PO (08:12)
[2024-08-09] MEDS: sennosides 8.6 mg Tablet 17.2 MG PO (08:12)
[2024-08-09] MEDS: doxycycline 100 mg Tablet PO ×2 (08:12→17:52)
[2024-08-09] MEDS: nicotine 21 mg Patch 1 PATCH TRANSDERMA (08:12)
--- NOTE | 2024-08-09 09:21 | PM.DCS ---
Discharge Providers Date of Admission: 08/05/24 08:23 Date of Discharge: August 09, 2024 Attending Provider at Admission: Karson Magaña Attending Provider at Discharge: Evette Moya MD Diagnoses at Discharge Discharge Diagnosis (1) Elevated troponin: Status: Acute (2) SOB (shortness of breath): Status: Acute (3) Abnormal EKG: Status: Acute (4) Bladder mass: Status: Acute (5) Fever: Status: Acute Qualifiers: Fever type: unspecified Qualified Code(s): R50.9 - Fever, unspecified (6) Leukopenia: Status: Acute Qualifiers: Leukopenia type: unspecified Qualified Code(s): D72.819 - Decreased white blood cell count, unspecified Reason for Visit Reason for Visit: DIZZY N/V fever Brief History: 69-year-old male from [place] moved to [place]?3 months ago?and started having?high-grade fevers?3 days preceding this admission.? On admission?her symptoms of?severe chills, sweats fever up to 102?and teeth chattering?chills . he was found to have leukopenia and thrombocytopenia. Blood cultures, urine cultures,?chest x-ray?all negative for?cause of infection.? CTA of the chest showed nonspecific diffuse esophageal wall thickening guest services representative of likely mild esophagitis. CT of the abdomen and pelvis revealed an incidental 2.5 x 2.5 cm mass in the posterolateral aspect of the urinary bladder lumen which was suspicious for malignancy. He has been referred to urology as an outpatient. Patient received empiric course of antibiotics with ceftriaxone and then doxycycline was added later. With the addition of doxycycline patient's fever subsided. He was last febrile on August 06, 2024. With lab abnormalities of leukopenia, thrombocytopenia, deranged LFTs on admission along with improvement with doxycycline, presumptive diagnosis currently is that of a tick mediated illness such as ehrlichiosis or anaplasmosis. Tick panel is pending at discharge with the exception of Lyme antibody titer which is negative. Pending Rickettsia and early Savage-C serology. Additionally pending Leptospira DNA, Brucella serology and a QuantiFERON screen. Patient's lab abnormalities are currently much improved. Leukopenia is resolved with WBC count improving to 4.1. Platelet count improving to 108. LFTs remaining stable with AST at 78, ALT at 85 normal alkaline phosphatase and T. bili. Upon admission patient was also noted to have incidentally elevated troponins. Baseline troponin of 33 trending up to 53 at 2 hours and then downtrending at 6 hours to 47. Echocardiogram showed normal LVEF of 67%, mild left ventricular hypertrophy. There were no regional wall motion abnormalities. EKG had shown a right bundle branch block and T wave inversions in lead V3. Patient denied having any chest pain. Cardiology service was consulted and patient was recommended to undergo a stress test for further evaluation. Patient is clinically stable for discharge today, however we are unable to complete the stress test test today as and the service is not available. Patient expressed interest in returning home rather than waiting today and completing the study as an outpatient therefore it has been ordered to be completed within the next 1 to 2 weeks as an outpatient. He needs to be established with a PCP locally and referral has been provided for the same Physical Exam Narrative: General: No acute distress, AO x3 HEENT: PERRLA, pupils bilaterally equal and reactive, pallors not present Chest: Normal vesicular breath sounds, no added sounds, equal good air entry bilaterally CVS: S1-S2 regular, no murmurs, no tachycardia, no gallops, no rubs Abdomen: Soft, nontender, no organomegaly, bowel sounds present Neuro: No focal deficits, no facial deformity, AO x3, power 5/5 in all limbs Discharge Data Studies Completed and Pending Completed Studies During Hospitalization Category Date Time Status CT abdomen pelvis w con* [id number] Stat Cat Scan 08/05/24 03:[address] angio chest PE protcl [id number] Stat Cat Scan 08/05/24 03:09 Completed CV. echo limited [id number] Routine Ultrasound 08/06/24 12:47 Completed Pending at discharge Category Date Time Status Aldolase Stat Lab 08/07/24 12:08 Received Anti DNASE B Antibody Routine Lab 08/06/24 18:23 Received Blood Culture Stat Lab 08/05/24 07:43 Results Brucella AB Agglutination Routine Lab 08/07/24 12:08 Received Immunofixation Serum Routine Lab 08/06/24 18:23 Received Leptospira DNA,Qualitative PCR Routine Lab 08/07/24 17:30 Ordered Iutpgwjtads-PA-Lohk Plus Routine Lab 08/07/24 12:08 Received SPEP [Total Protein Electrophoresis] Routine Lab 08/06/24 18:23 Received Tick Panel Routine Lab 08/05/24 10:43 Results Urine Culture Routine Lab 08/05/24 01:34 Results Urine Protein Electrop Random Routine Lab 08/06/24 17:32 Ordered CV. echo stress w contra [id number] Stat Ultrasound 08/05/24 08:13 Taken Radiology Impressions Abdomen/Pelvis CT 08/05/24 03:09 IMPRESSION: 1. 2.5 x 2.5 cm mass in the posterolateral aspect of the urinary bladder lumen. Highly suspicious for malignancy. Follow-up urology consultation is recommended. 2. No evidence of acute abdominal or pelvic process. 3. Tiny fat containing left periumbilical ventral hernia. COMMENTS: Consistent with the [employer]'s Incidental Findings Committee white paper (J Am Pratima Radiol 2018): Any incidental renal lesion less than 1 cm or classified as too small to characterize, or any incidental cystic renal lesion characterized as simple-appearing, is likely benign. No follow-up imaging is recommended for these lesions per consensus recommendations based on imaging criteria. Chest CTA 08/05/24 03:09 IMPRESSION: 1. No evidence of pulmonary embolism. 2. Moderate emphysema. 3. There is nonspecific diffuse esophageal wall thickening, which may represent mild esophagitis. Clinical correlation recommended. COMMENTS: The presence of pulmonary emphysema on CT is an independent risk factor for lung cancer. In the absence of a history or active diagnosis of lung cancer, it is recommended that this patient with emphysema be evaluated for enrollment in a low dose CT lung cancer screening program. Laboratory Results WBC 4.11 10^3/uL (3.29-11.43) 08/09/24 03:08 RBC 4.17 10^6/uL (3.85-5.65) 08/09/24 03:08 Hgb 13.20 g/dL (11.27-16.99) 08/09/24 03:08 Hct 39.8 % (37-53) 08/09/24 03:08 MCV 95.4 fl (82-101) 08/09/24 03:08 MCH 31.7 pg (27-33) 08/09/24 03:08 MCHC 33.2 g/dL (30-55) 08/09/24 03:08 RDW 13.3 % (12.1-15.1) 08/09/24 03:08 Plt Count 108 10^3/cmm (157-399) L D 08/09/24 03:08 MPV 11.4 fL (7.4-10.4) H 08/09/24 03:08 Neut % (Auto) 43.3 % 08/09/24 03:08 Lymph % (Auto) 42.8 % 08/09/24 03:08 [place] % (Auto) 8.8 % 08/09/24 03:08 Eos % (Auto) 3.9 % 08/09/24 03:08 Baso % (Auto) 1.0 % 08/09/24 03:08 Neut # (Auto) 1.78 10^3/uL (1.8-7.7) L 08/09/24 03:08 Lymph # (Auto) 1.8 10^3/uL (0.8-4.8) 08/09/24 03:08 [place] # (Auto) 0.4 10^3/uL (0.2-0.9) 08/09/24 03:08 Eos # (Auto) 0.2 10^3/uL (0.0-0.8) 08/09/24 03:08 Baso # (Auto) 0.0 10^3/uL (0.0-0.1) 08/09/24 03:08 Nucleated RBC % (auto) 0 % 08/09/24 03:08 Nucleated RBCs # 0.0 /100WBC 08/09/24 03:08 Peripher Smr Path Cons Sent for review 08/05/24 00:33 ESR 8 mm/hr (0-10) 08/06/24 18:23 Haptoglobin 127.0 mg/L (30-200) 08/06/24 18:23 PT 13.10 SECONDS (12.1-14.9) 08/05/24 00:33 INR 0.93 (0.8-1.2) 08/05/24 00:33 APTT 59.3 SECONDS (23.9-36.7) H 08/07/24 12:08 Fibrinogen 386 mg/dL (174-498) 08/06/24 18:23 Sodium 136 mmol/L (136-145) 08/08/24 02:22 Potassium 4.1 mmol/L (3.5-5.1) 08/08/24 02:22 Chloride 103 mmol/L (98-107) 08/08/24 02:22 Carbon Dioxide 24 mmol/L (22-29) 08/08/24 02:22 Anion Gap 13.1 (5-19) 08/08/24 02:22 BUN 18 mg/dL (8-23) 08/08/24 02:22 Creatinine 1.2 mg/dL (0.7-1.2) 08/08/24 02:22 GFR Calculation 60.0 mL/min (90-130) L 08/08/24 02:22 Glucose 117 mg/dL (65-115) H 08/08/24 02:22 POC Glucose 129 mg/dL (70-110) H 08/09/24 06:18 Calculated Osmolality 285 mOsm/kg (285-295) 08/08/24 02:22 Lactic Acid 1.2 mmol/L (0.5-2.2) 08/05/24 07:43 Calcium 8.6 mg/dL (8.5-10.5) 08/08/24 02:22 Ferritin 2842 ng/mL (30-400) H 08/06/24 18:23 Total Bilirubin 0.5 mg/dL (0.15-1.2) 08/08/24 02:22 AST 78 U/L (0-40) H 08/08/24 02:22 ALT 85 U/L (0-41) H 08/08/24 02:22 Alkaline Phosphatase 119 U/L (40-130) 08/08/24 02:22 Lactate Dehydrogenase 268 U/L (135-225) H 08/06/24 18:23 Troponin T Baseline 33 ng/L (0-15) H 08/05/24 00:33 Troponin T 120 Minute 53.32 ng/L (0-15) H 08/05/24 02:25 Delta Troponin T 20.32 ABS# (0-10) H* 08/05/24 02:25 Troponin T Hi Sens 6Hr 47.33 ng/L (0-15) H 08/05/24 07:06 Troponin T Hi Sens 6Hr Delta 14.33 ng/L (0-12) H* 08/05/24 07:06 C-Reactive Protein 58.6 mg/L (0.0-4.9) H 08/06/24 18:23 NT-Pro-B Natriuret Pep 65 pg/mL (0-125) 08/05/24 00:33 Total Protein 5.9 g/dL (6.6-8.7) L 08/08/24 02:22 Albumin 3.4 g/dL (3.5-5.2) L 08/08/24 02:22 Globulin 2.5 g/dL (1.3-4.6) 08/08/24 02:22 Triglycerides 201 mg/dL (0-150) H 08/06/24 18:23 Vitamin B12 308 pg/mL (232-1245) 08/05/24 00:33 Procalcitonin 0.17 ng/mL (0-0.5) 08/05/24 00:33 Urine Color Yellow (Yellow) 08/05/24 13:18 Urine Appearance Clear (CLEAR) 08/05/24 13:18 Urine pH 5.5 (5-7) 08/05/24 13:18 Ur Specific [place] 1.018 (1.005-1.030) 08/05/24 13:18 Urine Protein Trace (Negative) A 08/05/24 13:18 Urine Glucose (UA) Negative (Normal) 08/05/24 13:18 Urine Ketones Trace (Negative) 08/05/24 13:18 Urine Blood Negative (Negative) 08/05/24 13:18 Urine Nitrate Negative (Negative) 08/05/24 13:18 Urine Bilirubin Negative (Negative) 08/05/24 13:18 Urine Urobilinogen 1.0 mg/dL (Negative) 08/05/24 13:18 Ur Leukocyte Esterase Negative (Negative) 08/05/24 13:18 Urine RBC 0-2 /hpf (0-2) 08/05/24 13:18 Urine WBC 0-5 /hpf (0-5) 08/05/24 13:18 Ur Squamous Epith Cells 0-5 /hpf (0-5) 08/05/24 13:18 Amorphous Sediment Not Reportable 08/05/24 13:18 Urine Bacteria None seen /hpf (NONE) 08/05/24 13:18 Hyaline Casts 2.05 /lpf 08/05/24 13:18 Urine Opiates Screen Negative ng/mL (Negative) 08/05/24 13:18 Ur Barbiturates Screen Negative ng/mL (Negative) 08/05/24 13:18 Ur Phencyclidine Scrn Negative ng/mL (Negative) 08/05/24 13:18 Ur Amphetamines Screen Negative ng/mL (Negative) 08/05/24 13:18 U Benzodiazepines Scrn Positive ng/mL (Negative) H 08/05/24 13:18 Urine Cocaine Screen Negative ng/mL (Negative) 08/05/24 13:18 U Marijuana (THC) Screen Negative ng/mL (Negative) 08/05/24 13:18 IgG 759 mg/dL (700-1600) 08/06/24 18:23 IgA 138 mg/dL (70-400) 08/06/24 18:23 IgM 104 mg/dL (40-230) 08/06/24 18:23 Adenovirus (PCR) Not detected (NOT DETECT) 08/05/24 09:10 Lyme Ab (Western Blot) <0.90 index 08/05/24 10:43 C. pneumoniae DNA (PCR) Not detected (NOT DETECT) 08/05/24 09:10 C. trachomatis (PCR) Not detected 08/05/24 13:18 Coronavirus 229E (PCR) Not detected (NOT DETECT) 08/05/24 09:10 Hepatitis A IgM Ab Non-reactive (Nonreactive) 08/05/24 00:33 Hep Bs Antigen Non-reactive (Nonreactive) 08/05/24 00:33 Hep B Core IgM Ab Non-reactive (Nonreactive) 08/05/24 00:33 Hepatitis C Antibody Non-reactive (Nonreactive) 08/05/24 00:33 HIV 1&2 Ab & HIV 1 Ag Non-reactive (Non-Reactiv) 08/06/24 18:23 HIV 1&2 Antibody Non-reactive (Non-Reactiv) 08/06/24 18:23 Human Metapneumovir PCR Not detected (NOT DETECT) 08/05/24 09:10 Influenza A (H1) PCR Not detected (NOT DETECT) 08/05/24 09:10 Influenza A (PCR) Negative (Negative) 08/05/24 01:44 Influ A (H1/09) PCR Not detected (NOT DETECT) 08/05/24 09:10 Influenza A (H3) PCR Not detected (NOT DETECT) 08/05/24 09:10 Influenza Type A (PCR) Not detected (NOT DETECT) 08/05/24 09:10 Influenza Type B (PCR) Not detected (NOT DETECT) 08/05/24 09:10 M. pneumoniae (PCR) Not detected (NOT DETECT) 08/05/24 09:10 N. gonorrhoeae (PCR) Not detected 08/05/24 13:18 Parainfluenza 1 (PCR) Not detected (NOT DETECT) 08/05/24 09:10 Parainfluenza 2 (PCR) Not detected (NOT DETECT) 08/05/24 09:10 Parainfluenza 3 (PCR) Not detected (NOT DETECT) 08/05/24 09:10 Parainfluenza 4 (PCR) Not detected (NOT DETECT) 08/05/24 09:10 RSV (PCR) Negative (Negative) 08/05/24 01:44 RSV Type A (PCR) Not detected (NOT DETECT) 08/05/24 09:10 RSV Type B (PCR) Not detected (NOT DETECT) 08/05/24 09:10 Entero/Rhino (PCR) Not detected (NOT DETECT) 08/05/24 09:10 SARS-CoV-2 (PCR) Not detected (NOT DETECT) 08/05/24 09:10 Group A Strep Rapid Negative (Negative) 08/06/24 16:46 Vitals Last Vital Signs Temp 97.7 F 08/09/24 08:00 Pulse 95 08/09/24 08:00 Resp 20 H 08/09/24 08:00 BP 109/67 08/09/24 08:00 Pulse Ox 93 08/09/24 08:00 O2 Del Method Room Air 08/09/24 08:00 Discharge Plan Discharge Patient Disposition: Home Condition: Stable Prescriptions: New doxycycline monohydrate 100 mg Tablet 100 mg PO BID 10 Days Qty: 20 0RF pantoprazole [Protonix] 40 mg tablet,delayed release (DR/EC) 40 mg PO DAILY 28 Days Qty: 30 0RF Continued metformin 500 mg Tablet 500 mg PO BID aspirin [Ani Low Dose Aspirin] 81 mg Tablet,Delayed Release (Dr/Ec) 81 mg PO DAILY rosuvastatin 20 mg Tablet 20 mg PO DAILY Men 50 Plus Multivitamin [id number] mcg Tablet 1 tab PO DAILY Discontinued lisinopril 10 mg Tablet 10 mg PO DAILY Discharge Orders: Discharge Order (Routine); Ordered 08/09/24 Ordered By: Evette Moya Other Ambulatory Orders: Sestamibi Stress Test Request (Routine) Timeframe: 1 Week Facility: [facility] - Location: Cardiac Diagnostic Laboratory Ordered By: Evette Moya Referrals: Paola Cooper NP [Nurse Practitioner, Family Practice] - 08/16/24 10:00 am Referral Note: Please arrive at 09:45 for check in. 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 Hospital discharge f/up needs to establish with cardiology Discharge Diet: Cardiac Discharge Activity: Resume usual activity Patient Instructions: Doxycycline (By mouth) (Acticlate, Adoxa, Avidoxy, Monodox, Doryx), Pantoprazole (By mouth) (Protonix), Fever - Adult, Dyspnea (DC), Opioid Safety Discharge Attestations Time Spent in Discharge Care*: greater than 30 min Quality Metrics Clinical Quality Measures [ No reported AMI, CVA or VTE this stay] Coding Level of Care Code Acute Code for Chg Fwd Diagnoses Elevated troponin R79.89 SOB (shortness of breath) R06.02 Abnormal EKG R94.31 Bladder mass N32.89 Fever, unspecified fever cause R50.9 Fever type: unspecified Leukopenia, unspecified type D72.819 Leukopenia type: unspecified
--- NOTE | 2024-08-09 09:29 | PC.SOCIAL ---
IMM Update Pg. 2 of IMM updated. Copy provided at bedside.
--- NOTE | 2024-08-09 10:15 | PC.NURSE ---
This person printed and faxed appropriate paperwork [facility] to set up new patient appointment.
[2024-08-09 12:00] VITALS: BP 119/74; PULSE 96; RESP 20; TEMP 36.9; O2SAT 93
[2024-08-09 13:03] LABS: Glucose Point of Care 220 mg/dL (70-110)
--- NOTE | 2024-08-09 14:37 | P.PN_ITS ---
Subjective 2 Subjective: Denies any chest pain now Medications: Medication Review Details: Current Medications Acetaminophen (Acetaminophen 325 Mg Tablet) 650 mg PO Q6H PRN PRN Reason: Mild/Mod Pain Or Temp >/= 101 Last Admin: 08/06/24 07:53 Dose: 650 mg Alprazolam (Alprazolam 0.5 Mg Tablet) 0.5 mg PO TID PRN PRN Reason: ANXIETY Last Admin: 08/06/24 07:53 Dose: 0.5 mg Aspirin (Aspirin 81 Mg Ec Tablet) 162 mg PO DAILY BRYANNA Last Admin: 08/06/24 07:53 Dose: 162 mg Atorvastatin Calcium (Atorvastatin 40 Mg Tablet) 40 mg PO BEDTIME BRYANNA Last Admin: 08/05/24 22:13 Dose: 40 mg Ceftriaxone Sodium (Ceftriaxone 1,000 Mg Sdv) 1,000 mg IVP Q24H BRYANNA; Protocol Last Admin: 08/05/24 22:13 Dose: 1,000 mg Heparin Sodium (Porcine) (Heparin 5,000 Unit/Ml Inj 1 Ml) 0 unit IVP PRN PRN; Protocol PRN Reason: Heparin Weight Based Protocol -Subsequent Bolus Heparin Sodium/Sodium Chloride (Heparin Drip) 25,000 unit in 500 mls @ 0 mls/hr IV CONT BRYANNA; Protocol Last Titration: 08/06/24 01:24 Dose: 11.02 unit/kg/hr, 20 mls/hr Lactated Ringer's (Lactated Ringers) 1,000 mls @ 75 mls/hr IV .[id number] BRYANNA Last Infusion: 08/06/24 04:06 Dose: 0 mls/hr Doxycycline Hyclate 100 mg/ (Sodium Chloride) 100 mls @ 100 mls/hr IV Q12H [facility]; Protocol Last Infusion: 08/06/24 08:27 Dose: 0 mls/hr Nicotine (Nicotine 21 Mg Patch) 1 patch TRANSDERMA DAILY [facility] Last Admin: 08/06/24 07:53 Dose: 1 patch Nicotine Polacrilex (Nicotine 4 Mg Lozenge) 4 mg MUCOUS MEM Q4H PRN PRN Reason: NICOTINE CRAVINGS Ondansetron HCl (Ondansetron 2 Mg/Ml Sdv 2 Ml) 4 mg IVP Q8H PRN PRN Reason: vomiting, or N/V if npo Pantoprazole Sodium (Pantoprazole Dr 40 Mg Tablet) 40 mg PO DAILY [facility] Last Admin: 08/06/24 07:54 Dose: 40 mg Vitals/I&O/Wt Last Vital Signs Temp 98.5 F 08/09/24 12:00 Pulse 96 08/09/24 12:00 Resp 20 H 08/09/24 12:00 BP 119/74 08/09/24 12:00 Pulse Ox 93 08/09/24 12:00 O2 Del Method Room Air 08/09/24 12:00 08/08/24 08/09/24 08/09/24 22:59 06:59 14:59 Intake Total 1000 / 1000 240 / 240 Output Total 900 / 900 Balance 1000 / 1000 -900 / 100 240 / 240 Weight last 48 hrs Weight 200 lb 14.4 oz Weight 204 lb 3.2 oz Physical Exam 2 Const: OTHER: GENERAL: Patient is Fatigued but arousable HEART: Regular S1 and S2. No murmur, rub or gallop. LUNGS: Decreased breath sound bilaterally. CENTRAL NERVOUS SYSTEM: Grossly nonfocal. EXTREMITIES: Lower extremities with out edema bilaterally. Data 08/09/24 03:08 08/08/24 02:22 Micro: Microbiology 08/06/24 16:46 Group A Streptococcus Rapid Screen - Final Throat A&P Assessment and plan (1) Elevated troponin: Could be demand ischemia, patient may have underlying coronary artery disease may need to be evaluated once recovered from infection, there is no arrhythmia or chest pain noted (2) SOB (shortness of breath): Improved continue as per medicine (3) Abnormal EKG: EKG shows sinus rhythm with a right bundle branch block and possible left hemifascicular block. No acute ST-T changes. Continue to monitor on telemetry (4) Bladder mass: As per medicine (5) Fever: Improved (6) Leukopenia: Improving Plan Continue current medication Lexiscan stress test tomorrow however patient would like to see the camera as he is claustrophobic in case he would not like to proceed with Lexiscan MIBI stress test we will switch him to dobutamine stress echo. PDMP PDMP Reviewed: Not Reviewed Attestations 2 Medical Necessity Statement*: Patient require continuation hospitalization for above defined care Coding Level of Care Code Acute Code for Chg Fwd Diagnoses Elevated troponin R79.89 SOB (shortness of breath) R06.02 Abnormal EKG R94.31 Bladder mass N32.89 Fever, unspecified fever cause R50.9 Fever type: unspecified Leukopenia, unspecified type D72.819 Leukopenia type: unspecified
[2024-08-09 16:00] VITALS: BP 115/72; PULSE 94; RESP 24; TEMP 37.2; O2SAT 94
[2024-08-09 17:32] LABS: Glucose Point of Care 154 mg/dL (70-110)
[2024-08-09 20:20] VITALS: O2SAT 94
[2024-08-09] MEDS: cefTRIAXone 1,000 mg SDV 1000 MG IVP (21:05)
[2024-08-09] MEDS: atorvastatin 40 mg Tablet PO (21:05)
[2024-08-09 22:17] LABS: Glucose Point of Care 206 mg/dL (70-110)
[2024-08-10] VITALS (7 sets, daily range): BP systolic 103–142; BP diastolic 50–80; PULSE 90–98; RESP 17–20; TEMP 36.6–37.1; O2SAT 93–95
[2024-08-10 04:10] LABS: Basophils % 0.5 %; Eosinophils # 0.3 10^3/uL (0.0-0.8); Eosinophils % 5.3 %; Hematocrit 39.5 % (37-53); Lymphocytes # 2.4 10^3/uL (0.8-4.8); Lymphocytes % 42.6 %; Mean Corpuscular HGB Conc 33.4 g/dL (30-55); Mean Corpuscular Volume 95.9 fl (82-101); Mean Platelet Volume 10.3 fL (7.4-10.4); Monocytes # 0.4 10^3/uL (0.2-0.9); Monocytes % 6.5 %; Neutrophils # 2.46 10^3/uL (1.8-7.7); Neutrophils % 44.7 %; Nucleated Red Blood Cells % 0 %; Platelet Count 142 10^3/cmm (157-399); Red Blood Count 4.12 10^6/uL (3.85-5.65); Red Cell Distribution Width 13.1 % (12.1-15.1); White Blood Count 5.51 10^3/uL (3.29-11.43)
[2024-08-10 04:30] LABS: Alanine Aminotransferase 139 U/L (0-41); Albumin Level 3.7 g/dL (3.5-5.2); Alkaline Phosphatase 177 U/L (40-130); Anion Gap 14.2 (5-19); Aspartate Amino Transferase 117 U/L (0-40); Blood Urea Nitrogen 22 mg/dL (8-23); Carbon Dioxide 25 mmol/L (22-29); Chloride 104 mmol/L (98-107); Creatinine Clr Calc Pharmacy 65.9468; Globulin 2.7 g/dL (1.3-4.6); Glucose 128 mg/dL (65-115); Osmolality Calculated 293 mOsm/kg (285-295); Potassium 4.2 mmol/L (3.5-5.1); Sodium 139 mmol/L (136-145); Total Bilirubin 0.6 mg/dL (0.15-1.2); Total Protein 6.4 g/dL (6.6-8.7)
[2024-08-10 04:38] LABS: Slide Review Slide Review Perform
[2024-08-10] MEDS: ALPRAZolam 0.5 mg Tablet PO ×3 (05:52→20:13)
[2024-08-10 06:08] LABS: Glucose Point of Care 137 mg/dL (70-110)
--- NOTE | 2024-08-10 06:21 | ECG_ITS ---
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
[2024-08-10] MEDS: regadenoson 0.4 Mg/5 ml Syringe IVP (07:04)
[2024-08-10] MEDS: polyethylene glycol 3350 Pkt 17 gm PO (08:24)
[2024-08-10] MEDS: nicotine 21 mg Patch 1 PATCH TRANSDERMA (08:25)
[2024-08-10] MEDS: sennosides 8.6 mg Tablet 17.2 MG PO (08:26)
[2024-08-10] MEDS: doxycycline 100 mg Tablet PO ×2 (08:26→18:34)
[2024-08-10] MEDS: pantoprazole DR 40 mg Tablet PO (08:26)
--- NOTE | 2024-08-10 09:59 | P.PN_ITS ---
<Statement entered by Kika Escobar MD - 08/16/24 09:48> Patient was evaluated and cared for in conjunction with an advanced practice practitioner. I personally examined the patient and reviewed the chart and all pertinent data including imaging, telemetry, and laboratory results. I discussed the patient in detail with the advanced practice practitioner. Please see their note for complete H&P testing result and agreed upon plan of care for the patient. Subjective 2 Subjective: No events overnight. He had a Lexiscan stress test this morning, showing a medium sized area of moderate to severe reversibility in the RCA or circumflex territory. Will recommend coronary angiography tomorrow. Vitals/I&O/Wt Last Vital Signs Temp 97.8 F 08/10/24 08:00 Pulse 95 08/10/24 08:00 Resp 20 H 08/10/24 08:00 BP 106/75 08/10/24 08:00 Pulse Ox 95 08/10/24 08:00 O2 Del Method Room Air 08/10/24 08:00 08/09/24 08/10/24 08/10/24 22:59 06:59 14:59 Intake Total 360 / 600 Balance 360 / 600 Weight last 48 hrs Weight 200 lb 9 oz Weight 200 lb 14.4 oz Physical Exam 2 Const: COMMON NORMALS: no acute distress and patient oriented x3 GENERAL APPEARANCE: cooperative and comfortable ORIENTATION/CONSCIOUSNESS: Yes awake, Yes oriented to person, Yes oriented to place and Yes oriented to time Chest: COMMONS NORMALS: normal inspection of the chest and normal palpation of entire chest wall CHEST: Yes Symmetrical chest wall rise Resp: COMMON NORMALS: normal respiratory effort, No retractions, No use of accessory muscles and clear to auscultation bilaterally EFFORT & INSPECTION: Yes symmetric chest movement AUSCULTATION: clear to auscultation bilaterally Cardio: COMMON NORMALS: regular rate, regular rhythm, S1 normal heart sound present, S2 normal heart sound present, No gallops present (Cardio), No clicks present (Cardio), No murmurs present (Cardio) and No rub (Cardio) RATE: r egular rate RHYTHM: regular rhythm HEART SOUNDS: S1 normal heart sound present and S2 normal heart sound present PERIPHERAL PULSES: radial pulses present Extremity: COMMON NORMALS: no pedal edema Neuro: COMMON NORMALS: patient oriented x3 and moves all extremities S ENSORIUM/ORIENTATION: Yes oriented to person, Yes oriented to place and Yes oriented to time Data 08/10/24 03:55 08/10/24 03:55 Micro: Microbiology 08/05/24 07:43 Blood Culture - Final Blood NO GROWTH AFTER 5 DAYS 08/05/24 07:30 Blood Culture - Final Blood NO GROWTH AFTER 5 DAYS A&P Assessment and plan (1) Elevated troponin: (2) SOB (shortness of breath): (3) Abnormal EKG: (4) Bladder mass: Plan He has not had any recurrence of chest pain, vital signs are stable. Stress test was positive for ischemia in the RCA/circumflex territory. I discussed with the patient risks and benefits of coronary angiogram including contrast-induced nephropathy and risk of bleeding. He understands risks and benefits and would like to proceed with coronary angiogram. N.p.o. after midnight tonight. PDMP PDMP Reviewed: Not Reviewed Attestations 2 Medical Necessity Statement*: Ischemic workup Coding Level of Care Code Acute Code for [facility] Fwd Diagnoses Elevated troponin R79.89 SOB (shortness of breath) R06.02 Abnormal EKG R94.31 Bladder mass N32.89
--- NOTE | 2024-08-10 11:38 | P.PN_ITS ---
Subjective 2 Subjective: Patient stress test has been reported as abnormal today. Please see details below. Plan for angiogram tomorrow per cardiology. Medications: Medication Review Details: Current Medications Acetaminophen (Acetaminophen 325 Mg Tablet) 650 mg PO Q6H PRN PRN Reason: Mild/Mod Pain Or Temp >/= 101 Last Admin: 08/06/24 07:53 Dose: 650 mg Alprazolam (Alprazolam 0.5 Mg Tablet) 0.5 mg PO TID PRN PRN Reason: ANXIETY Last Admin: 08/06/24 07:53 Dose: 0.5 mg Aspirin (Aspirin 81 Mg Ec Tablet) 162 mg PO DAILY BRYANNA Last Admin: 08/06/24 07:53 Dose: 162 mg Atorvastatin Calcium (Atorvastatin 40 Mg Tablet) 40 mg PO BEDTIME BRYANNA Last Admin: 08/05/24 22:13 Dose: 40 mg Ceftriaxone Sodium (Ceftriaxone 1,000 Mg Sdv) 1,000 mg IVP Q24H BRYANNA; Protocol Last Admin: 08/05/24 22:13 Dose: 1,000 mg Heparin Sodium (Porcine) (Heparin 5,000 Unit/Ml Inj 1 Ml) 0 unit IVP PRN PRN; Protocol PRN Reason: Heparin Weight Based Protocol -Subsequent Bolus Heparin Sodium/Sodium Chloride (Heparin Drip) 25,000 unit in 500 mls @ 0 mls/hr IV CONT BRYANNA; Protocol Last Titration: 08/06/24 01:24 Dose: 11.02 unit/kg/hr, 20 mls/hr Lactated Ringer's (Lactated Ringers) 1,000 mls @ 75 mls/hr IV .[id number] BRYANNA Last Infusion: 08/06/24 04:06 Dose: 0 mls/hr Doxycycline Hyclate 100 mg/ (Sodium Chloride) 100 mls @ 100 mls/hr IV Q12H BRYANNA; Protocol Last Infusion: 08/06/24 08:27 Dose: 0 mls/hr Nicotine (Nicotine 21 Mg Patch) 1 patch TRANSDERMA DAILY BRYANNA Last Admin: 08/06/24 07:53 Dose: 1 patch Nicotine Polacrilex (Nicotine 4 Mg Lozenge) 4 mg MUCOUS MEM Q4H PRN PRN Reason: NICOTINE CRAVINGS Ondansetron HCl (Ondansetron 2 Mg/Ml Sdv 2 Ml) 4 mg IVP Q8H PRN PRN Reason: vomiting, or N/V if npo Pantoprazole Sodium (Pantoprazole Dr 40 Mg Tablet) 40 mg PO DAILY BRYANNA Last Admin: 08/06/24 07:54 Dose: 40 mg Vitals/I&O/Wt Last Vital Signs Temp 97.8 F 08/10/24 08:00 Pulse 95 08/10/24 08:00 Resp 20 H 08/10/24 08:00 BP 106/75 08/10/24 08:00 Pulse Ox 95 08/10/24 08:00 O2 Del Method Room Air 08/10/24 08:00 08/09/24 08/10/24 08/10/24 22:59 06:59 14:59 Intake Total 360 / 600 Balance 360 / 600 Weight last 48 hrs Weight 90.974 kg Weight 91.127 kg Physical Exam 2 Narrative: General: No acute distress, AO x3 HEENT: PERRLA, pupils bilaterally equal and reactive, pallors not present Chest: Normal vesicular breath sounds, no added sounds, equal good air entry bilaterally CVS: S1-S2 regular, no murmurs, no tachycardia, no gallops, no rubs Abdomen: Soft, nontender, no organomegaly, bowel sounds present Neuro: No focal deficits, no facial deformity, AO x3, power 5/5 in all limbs Data 08/10/24 03:55 08/10/24 03:55 Micro: Microbiology 08/05/24 07:43 Blood Culture - Final Blood NO GROWTH AFTER 5 DAYS 08/05/24 07:30 Blood Culture - Final Blood NO GROWTH AFTER 5 DAYS A&P Assessment and plan (1) Elevated troponin: (2) SOB (shortness of breath): (3) Abnormal EKG: (4) Bladder mass: Urinary bladder mass : A 2.5 x 2.5 cm mass was found incidentally in the urinary bladder on CT scan. The etiology is unclear; could be benign or malignant. Smoking is a risk factor for bladder cancer. No current hematuria or significant urinary symptoms except some urgency and red blood cells in urine. Urology follow-up is needed for further evaluation, including possible cystoscopy and biopsy. No intervention planned until the patient is stable and afebrile. - Will need urology follow-up for cystoscopy and possible biopsy - Monitor for urinary symptoms or hematuria - No intervention until patient is stable and afebrile I discussed with patient that urology is available at [facility] in [place] for outpatient cystoscopy and probable removal of incidentally found bladder tumor (5) Fever: Fevers have resolved headache and nausea decreased or near resolved. No recurrence of vomiting. Blood and urine cultures negative. White count 2.65 lymphocytes 1.2 and lymphocyte percent percent kelvin from 23 to 44.9 CRP 58.6, ESR 8, urine bacterial antigens, rapid strep negative, triglyceride, ferritin with bicytopenia. Haptoglobin, LDH. Immunology IgG IgA and IgM normal electrophoresis is pending. Viral serologies negative COVID, influenza and strep negative HIV negative Urine negative for leukocyte esterase, nitrates, blood but there is a 2.5 cm mass incidentally found which does not explain his fevers Today with mild transaminitis, requested hepatitis panel, HIV. Repeat chemistry noted mild RAFA creatinine up to 1.3, if improving, assess contrast CT thoracic and lumbar spine with chronic pain and prior compression fractures to assess for localized infection. Without signs of cord compression. Consider lumbar puncture, although headache is mild, without other meningeal signs, currently also on anticoagulation, received aspirin and Plavix yesterday as well. Discussed with patient and family. This appears to be infectious some sort of atypical infection since it responded to doxycycline. Brucella total antibody agglutination is pending as is QuantiFERON gold and leptospirosis. Lyme antibody was negative Chlamydia trachomatous PCR negative HIV negative and gonorrhea negative group A strep negative (6) Leukopenia: Plan Patient is improved. 1 more night in the hospital to monitor white count and lymphocyte count and for fevers. If no fevers can go home on doxycycline following his stress test August 10, 2024 Stress test was performed this morning which showed medium sized area of moderate to severe ischemia in the basal to distal inferior and inferolateral wall suggestive of stenosis in the RCA or dominant circumflex artery. no chest pain today. Patient is planned to undergo angiogram tomorrow per cardiology. He remains afebrile, hemodynamically stable. Platelet counts are stable at 140. PDMP PDMP Reviewed: Not Reviewed Attestations 2 Medical Necessity Statement*: Plan angiogram tomorrow Coding Level of Care Code Acute Code for Chg Fwd High MDM includes number and complexity of problems actively addressed during encounter, amount and/or complexity of data reviewed/ordered and described risk of complication, morbidity or mortality of management as documented Diagnoses Elevated troponin R79.89 SOB (shortness of breath) R06.02 Abnormal EKG R94.31 Bladder mass N32.89 Fever, unspecified fever cause R50.9 Fever type: unspecified Leukopenia, unspecified type D72.819 Leukopenia type: unspecified
[2024-08-10 12:09] LABS: Glucose Point of Care 221 mg/dL (70-110)
--- NOTE | 2024-08-10 14:34 | NMCV_ITS ---
NM larry perf SPECT r/s* [id number] Age: 69 Gender: M : 1955 Exam Date: 08/10/2024 06:35 Ordering Phys: Kika Escobar MD ([email or web address]) Technologist: ADAMA Freeman Exam Location: [facility] Indications: cp STRESS TEST Please see separate stress test report in [facility] for full findings IMAGE PROTOCOL Rest/Stress 1 Lexiscan Day Radiopharmaceutical Dose (mCi) Administration Site Administered by Rest: Tc-99m 10.8 IV Domitila Blue, APPEALS RN Sestamibi Stress:Tc-99m 32.6 IV Domitila Motleygle, APPEALS RN Sestamibi Rest: 10-Aug-2024 60 Discovery 630 Stress: 10-Aug-2024 30 Discovery 630 0.4mg Lexiscan. Images obtained in supine and prone position. SPECT RESULTS Technical Quality: Good Raw Data Analysis: Normal Image Corrections: No attenuation or motion correction applied Summed Stress Score: 2 Summed Rest Score: 0 Summed Difference Score: 2 PERFUSION FINDINGS Medium sized area of moderate to severe reversibility noted in basal to distal inferior and inferolateral wall suggestive of ischemia in dominant RCA or circumflex territory. FUNCTIONAL RESULTS (calculated via Gated SPECT) Stress Image LV EF (%): 72 Stress EDV (mL):76 TID: 1.11 Stress ESV (mL):21 FUNCTIONAL FINDINGS: There appeared to be basal to distal inferior wall hypokinesis IMPRESSIONS Medium size area of moderate to severe ischemia noted in basal to distal inferior and inferolateral wall suggestive of possible stenosis in the RCA or dominant circumflex territory. EKG segment will be documented separately. Kika Escobar MD (Electronically Signed) Final Date: 10 Aug 2024 10:32 S
[2024-08-10 17:32] LABS: Glucose Point of Care 177 mg/dL (70-110)
[2024-08-10 18:00] LABS: PROTEIN, TOTAL 5.6 g/dL (6.1-8.1)
[2024-08-10] MEDS: atorvastatin 40 mg Tablet PO (20:13)
[2024-08-10] MEDS: cefTRIAXone 1,000 mg SDV 1000 MG IVP (20:14)
[2024-08-10 20:51] LABS: Glucose Point of Care 166 mg/dL (70-110)
[2024-08-11] VITALS (10 sets, daily range): BP systolic 94–164; BP diastolic 57–91; PULSE 83–97; RESP 16–24; TEMP 36.4–36.6; O2SAT 92–98; BMI 28.8
[2024-08-11 04:49] LABS: Basophils % 0.4 %; Eosinophils # 0.4 10^3/uL (0.0-0.8); Eosinophils % 5.1 %; Hematocrit 38.4 % (37-53); Lymphocytes # 3.1 10^3/uL (0.8-4.8); Lymphocytes % 43.2 %; Mean Corpuscular HGB Conc 33.3 g/dL (30-55); Mean Corpuscular Hemoglobin 31.4 pg (27-33); Mean Corpuscular Volume 94.3 fl (82-101); Mean Platelet Volume 10.8 fL (7.4-10.4); Monocytes # 0.4 10^3/uL (0.2-0.9); Monocytes % 6.2 %; Neutrophils # 3.15 10^3/uL (1.8-7.7); Neutrophils % 44.7 %; Nucleated Red Blood Cells % 0 %; Platelet Count 162 10^3/cmm (157-399); Red Blood Count 4.07 10^6/uL (3.85-5.65); Red Cell Distribution Width 12.8 % (12.1-15.1); White Blood Count 7.06 10^3/uL (3.29-11.43)
[2024-08-11] MEDS: ALPRAZolam 0.5 mg Tablet PO ×3 (04:56→20:02)
[2024-08-11 05:07] LABS: Alanine Aminotransferase 121 U/L (0-41); Albumin Level 3.7 g/dL (3.5-5.2); Alkaline Phosphatase 165 U/L (40-130); Anion Gap 14.2 (5-19); Aspartate Amino Transferase 74 U/L (0-40); Blood Urea Nitrogen 21 mg/dL (8-23); Carbon Dioxide 25 mmol/L (22-29); Chloride 103 mmol/L (98-107); Creatinine Clr Calc Pharmacy 65.8965; Globulin 2.8 g/dL (1.3-4.6); Glucose 118 mg/dL (65-115); Osmolality Calculated 290 mOsm/kg (285-295); Potassium 4.2 mmol/L (3.5-5.1); Sodium 138 mmol/L (136-145); Total Bilirubin 0.4 mg/dL (0.15-1.2); Total Protein 6.5 g/dL (6.6-8.7)
[2024-08-11 05:10] LABS: Slide Review Slide Review Perform
[2024-08-11 06:45] LABS: Glucose Point of Care 150 mg/dL (70-110)
[2024-08-11] MEDS: pantoprazole DR 40 mg Tablet PO (08:23)
[2024-08-11] MEDS: doxycycline 100 mg Tablet PO ×2 (08:23→17:28)
[2024-08-11] MEDS: aspirin 325 mg Tablet PO (08:24)
[2024-08-11] MEDS: nicotine 21 mg Patch 1 PATCH TRANSDERMA (08:24)
--- NOTE | 2024-08-11 10:44 | P.PN_ITS ---
<Statement entered by Mikhail Dumas M.D - 08/14/24 13:13> Patient was evaluated and cared for in conjunction with an advanced practice practitioner.? I personally examined the patient and reviewed the chart and all pertinent data including imaging, telemetry, and laboratory results.? I discussed the patient in detail with the advanced practice practitioner.? Please see? their note for complete H&P, testing results and agreed upon plan of care for the patient. 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 After discussion with family, shared decision was made to proceed with PCI. Option of transferring for CABG discussed in detail. Patient had PCI of mid LAD with 1 stent in left circumflex artery with 1 stent. Has residual RCA stenosis that will be treated as a staged procedure. Continue aspirin Plavix GENERAL: Patient is alert, awake and oriented x3. HEART: Regular S1 and S2 LUNGS: Clear to auscultate bilaterally. CENTRAL NERVOUS SYSTEM: Grossly nonfocal. EXTREMITIES: Lower extremities without edema bilaterally. Subjective 2 Subjective: He has done well overnight, no chest pain. Plan for coronary angiogram today due to abnormal stress test in the RCA territory. Creatinine 1.2 today, stable. Afternoon update, coronary angiogram this morning revealed multivessel CAD, patient and family discussion for PCI versus CABG, decision was made to decline CABG and proceed with PCI. Today he had PCI of the LAD and left circumflex. Plan will be for staged PCI of the RCA in 4 weeks. Vitals/I&O/Wt Last Vital Signs Temp 97.8 F 08/11/24 07:22 Pulse 94 08/11/24 07:22 Resp 16 08/11/24 07:22 BP 124/82 08/11/24 07:22 Pulse Ox 94 08/11/24 07:22 O2 Del Method Room Air 08/11/24 07:22 08/10/24 08/11/24 08/11/24 22:59 06:59 14:59 Intake Total 240 / 480 Balance 240 / 480 Weight last 48 hrs Weight 201 lb 6 oz Weight 200 lb 9 oz Physical Exam 2 Const: COMMON NORMALS: no acute distress and patient oriented x3 GENERAL APPEARANCE: cooperative and comfortable ORIENTATION/CONSCIOUSNESS: Yes awake, Yes oriented to person, Yes oriented to place and Yes oriented to time Chest: COMMONS NORMALS: normal inspection of the chest and normal palpation of entire chest wall CHEST: Yes Symmetrical chest wall rise Resp: COMMON NORMALS: normal respiratory effort, No retractions, No use of accessory muscles and clear to auscultation bilaterally EFFORT & INSPECTION: Yes symmetric chest movement AUSCULTATION: clear to auscultation bilaterally Cardio: COMMON NORMALS: regular rate, regular rhythm, S1 normal heart sound present, S2 normal heart sound present, No gallops present (Cardio), No clicks present (Cardio), No murmurs present (Cardio) and No rub (Cardio) RATE: r egular rate RHYTHM: regular rhythm HEART SOUNDS: S1 normal heart sound present and S2 normal heart sound present PERIPHERAL PULSES: radial pulses present Extremity: COMMON NORMALS: no pedal edema Neuro: COMMON NORMALS: patient oriented x3 and moves all extremities S ENSORIUM/ORIENTATION: Yes oriented to person, Yes oriented to place and Yes oriented to time Data 08/11/24 04:25 08/11/24 04:25 Micro: Microbiology 08/05/24 07:43 Blood Culture - Final Blood NO GROWTH AFTER 5 DAYS 08/05/24 07:30 Blood Culture - Final Blood NO GROWTH AFTER 5 DAYS A&P Assessment and plan (1) Elevated troponin: (2) Non-ST elevation IL (NSTEMI): (3) Abnormal EKG: (4) SOB (shortness of breath): (5) Abnormal stress test: Plan Coronary angiogram today. He has been n.p.o. after midnight. Further plan based on results of imaging. Will add on metoprolol succinate 12.5 mg daily starting tomorrow, continue atorvastatin. Restart aspirin and Plavix from tomorrow. PDMP PDMP Reviewed: Not Reviewed Attestations 2 Medical Necessity Statement*: Coronary angiography, ischemic workup Coding Level of Care Code Acute Code for [facility] Fwd Diagnoses Elevated troponin R79.89 Non-ST elevation IL (NSTEMI) I21.4 Abnormal EKG R94.31 SOB (shortness of breath) R06.02 Abnormal stress test R94.39
--- NOTE | 2024-08-11 11:12 | PC.NURSE ---
crime laboratory analyst took patient off the unit for angiogram at 1114.
--- NOTE | 2024-08-11 11:28 | W.PM.OPSUD ---
Surgery/Procedure H&P Update DATE OF PROCEDURE: August 11, 2024 DATE H&P PERFORMED: 08/05/24 H&P UPDATE INFORMATION: I have reviewed H&P completed within last 30 days, I have examined patient prior to procedure and Changes to prior documentation as noted here CHANGES TO PREVIOUS DOCUMENTATION: Patient had abnormal stress test and elevated troponins. Plan for coronary angiogram with possible PCI PREOP DIAGNOSIS: Troponin elevation/abnormal stress test/ Dyspnea on exertion PRIMARY INDICATION FOR PROCEDURE: Troponin elevation/abnormal stress test/ Dyspnea on exertion PLANNED PROCEDURE: Operation Date: 08/11/24 11:00 Proposed Procedures p Cardiac Catheterization(Left) - Mikhail Dumas M.D Possible percutaneous coronary intervention PATIENT REASSESSED PRIOR TO SEDATION, WITH NO CHANGE NOTED: Yes PHYSICAL EXAM: alert, oriented x 3, clear to auscultation bilaterally and regular rate & rhythm AIRWAY EVAL/ANESTHESIA PLAN: normal airway, ASA III, Local Anesthesia, Risks, benefits & alternatives of sedation and/or procedure discussed and Patient agrees to continue as planned ADDITIONAL INFORMATION: Moderate sedation
[2024-08-11 11:43] LABS: Glucose Point of Care 113 mg/dL (70-110)
--- NOTE | 2024-08-11 11:48 | P.PN_ITS ---
Subjective 2 Subjective: Denies new complaints today plan for coronary angiogram. Medications: Reviewed: Yes Medication Review Details: Current Medications Acetaminophen (Acetaminophen 325 Mg Tablet) 650 mg PO Q6H PRN PRN Reason: Mild/Mod Pain Or Temp >/= 101 Last Admin: 08/06/24 07:53 Dose: 650 mg Alprazolam (Alprazolam 0.5 Mg Tablet) 0.5 mg PO TID PRN PRN Reason: ANXIETY Last Admin: 08/06/24 07:53 Dose: 0.5 mg Aspirin (Aspirin 81 Mg Ec Tablet) 162 mg PO DAILY BRYANNA Last Admin: 08/06/24 07:53 Dose: 162 mg Atorvastatin Calcium (Atorvastatin 40 Mg Tablet) 40 mg PO BEDTIME BRYANNA Last Admin: 08/05/24 22:13 Dose: 40 mg Ceftriaxone Sodium (Ceftriaxone 1,000 Mg Sdv) 1,000 mg IVP Q24H BRYANNA; Protocol Last Admin: 08/05/24 22:13 Dose: 1,000 mg Heparin Sodium (Porcine) (Heparin 5,000 Unit/Ml Inj 1 Ml) 0 unit IVP PRN PRN; Protocol PRN Reason: Heparin Weight Based Protocol -Subsequent Bolus Heparin Sodium/Sodium Chloride (Heparin Drip) 25,000 unit in 500 mls @ 0 mls/hr IV CONT BRYANNA; Protocol Last Titration: 08/06/24 01:24 Dose: 11.02 unit/kg/hr, 20 mls/hr Lactated Ringer's (Lactated Ringers) 1,000 mls @ 75 mls/hr IV .[id number] BRYANNA Last Infusion: 08/06/24 04:06 Dose: 0 mls/hr Doxycycline Hyclate 100 mg/ (Sodium Chloride) 100 mls @ 100 mls/hr IV Q12H BRYANNA; Protocol Last Infusion: 08/06/24 08:27 Dose: 0 mls/hr Nicotine (Nicotine 21 Mg Patch) 1 patch TRANSDERMA DAILY [facility] Last Admin: 08/06/24 07:53 Dose: 1 patch Nicotine Polacrilex (Nicotine 4 Mg Lozenge) 4 mg MUCOUS MEM Q4H PRN PRN Reason: NICOTINE CRAVINGS Ondansetron HCl (Ondansetron 2 Mg/Ml Sdv 2 Ml) 4 mg IVP Q8H PRN PRN Reason: vomiting, or N/V if npo Pantoprazole Sodium (Pantoprazole Dr 40 Mg Tablet) 40 mg PO DAILY [facility] Last Admin: 08/06/24 07:54 Dose: 40 mg Vitals/I&O/Wt Last Vital Signs Temp 97.8 F 08/11/24 07:22 Pulse 94 08/11/24 07:22 Resp 16 08/11/24 07:22 BP 124/82 08/11/24 07:22 Pulse Ox 94 08/11/24 07:22 O2 Del Method Room Air 08/11/24 07:22 08/10/24 08/11/24 08/11/24 22:59 06:59 14:59 Intake Total 240 / 480 Balance 240 / 480 Weight last 48 hrs Weight 91.342 kg Weight 90.974 kg Physical Exam 2 Narrative: General: No acute distress, AO x3 HEENT: PERRLA, pupils bilaterally equal and reactive, pallors not present Chest: Normal vesicular breath sounds, no added sounds, equal good air entry bilaterally CVS: S1-S2 regular, no murmurs, no tachycardia, no gallops, no rubs Abdomen: Soft, nontender, no organomegaly, bowel sounds present Neuro: No focal deficits, no facial deformity, AO x3, power 5/5 in all limbs Data 08/11/24 04:25 08/11/24 04:25 Micro: Microbiology 08/05/24 07:43 Blood Culture - Final Blood NO GROWTH AFTER 5 DAYS 08/05/24 07:30 Blood Culture - Final Blood NO GROWTH AFTER 5 DAYS A&P Assessment and plan (1) Elevated troponin: (2) SOB (shortness of breath): (3) Abnormal EKG: (4) Bladder mass: Urinary bladder mass : A 2.5 x 2.5 cm mass was found incidentally in the urinary bladder on CT scan. The etiology is unclear; could be benign or malignant. Smoking is a risk factor for bladder cancer. No current hematuria or significant urinary symptoms except some urgency and red blood cells in urine. Urology follow-up is needed for further evaluation, including possible cystoscopy and biopsy. No intervention planned until the patient is stable and afebrile. - Will need urology follow-up for cystoscopy and possible biopsy - Monitor for urinary symptoms or hematuria - No intervention until patient is stable and afebrile I discussed with patient that urology is available at [facility] in [place] for outpatient cystoscopy and probable removal of incidentally found bladder tumor (5) Fever: Fevers have resolved headache and nausea decreased or near resolved. No recurrence of vomiting. Blood and urine cultures negative. White count 2.65 lymphocytes 1.2 and lymphocyte percent percent kelvin from 23 to 44.9 CRP 58.6, ESR 8, urine bacterial antigens, rapid strep negative, triglyceride, ferritin with bicytopenia. Haptoglobin, LDH. Immunology IgG IgA and IgM normal electrophoresis is pending. Viral serologies negative COVID, influenza and strep negative HIV negative Urine negative for leukocyte esterase, nitrates, blood but there is a 2.5 cm mass incidentally found which does not explain his fevers Today with mild transaminitis, requested hepatitis panel, HIV. Repeat chemistry noted mild RAFA creatinine up to 1.3, if improving, assess contrast CT thoracic and lumbar spine with chronic pain and prior compression fractures to assess for localized infection. Without signs of cord compression. Consider lumbar puncture, although headache is mild, without other meningeal signs, currently also on anticoagulation, received aspirin and Plavix yesterday as well. Discussed with patient and family. This appears to be infectious some sort of atypical infection since it responded to doxycycline. Brucella total antibody agglutination is pending as is QuantiFERON gold and leptospirosis. Lyme antibody was negative Chlamydia trachomatous PCR negative HIV negative and gonorrhea negative group A strep negative (6) Leukopenia: Plan Patient is improved. 1 more night in the hospital to monitor white count and lymphocyte count and for fevers. If no fevers can go home on doxycycline following his stress test August 10, 2024 Stress test was performed this morning which showed medium sized area of moderate to severe ischemia in the basal to distal inferior and inferolateral wall suggestive of stenosis in the RCA or dominant circumflex artery. no chest pain today. Patient is planned to undergo angiogram tomorrow per cardiology. He remains afebrile, hemodynamically stable. Platelet counts are stable at 140. August 11, 2024 No new complaints today. Platelets remain recovered. Leukopenia resolved. Afebrile. Pending coronary angiogram today. PDMP PDMP Reviewed: Not Reviewed Attestations 2 Medical Necessity Statement*: Plan angiogram today. Coding Level of Care Code Acute Code for [facility] Fwd Diagnoses Elevated troponin R79.89 SOB (shortness of breath) R06.02 Abnormal EKG R94.31 Bladder mass N32.89 Fever, unspecified fever cause R50.9 Fever type: unspecified Leukopenia, unspecified type D72.819 Leukopenia type: unspecified
[2024-08-11 13:15] LABS: Aldolase 8.5 U/L (< OR = 8.1)
--- NOTE | 2024-08-11 13:19 | PC.NURSE ---
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
[2024-08-11] MEDS: sodium chloride 0.9% 1,000 ML 100 ML IV ×2 (14:08→21:19)
[2024-08-11 16:14] LABS: Partial Thromboplastin Time 148.5 SECONDS (23.9-36.7)
[2024-08-11 16:33] LABS: Glucose Point of Care 201 mg/dL (70-110)
[2024-08-11] MEDS: insulin lispro 100 unit/1 mL SUBCUT (17:29)
--- NOTE | 2024-08-11 19:09 | PC.NURSE ---
Patient's right radial TR-band is removed, air is removed slowly 2 ml's at a time. TR-band is removed and a dressing of 2x2 and tegaderm is applied. No hematoma is noted. Patient tolerated well. Patient is reeducated to not use his right wrist/hand for the first 24 hours. Patient states understanding.
[2024-08-11 19:21] LABS: Partial Thromboplastin Time 37.4 SECONDS (23.9-36.7)
[2024-08-11] MEDS: atorvastatin 40 mg Tablet PO (20:02)
[2024-08-11] MEDS: cefTRIAXone 1,000 mg SDV 1000 MG IVP (20:02)
[2024-08-11] MEDS: fentaNYL 50 mcg/mL INJ 2mL IVP (20:49)
--- NOTE | 2024-08-11 23:24 | PM.PROC ---
Procedure Note: Date of procedure: 08/11/24 Pre-procedure diagnosis: NSTEMI/ Abnormal stress test Post-procedure diagnosis: other (Severe multivessel coronary artery disease) Procedure: Left main artery is patent. LAD has critical mid vessel disease s/p PCI with 1 stent. Distal lcx has severe stenosis s/p PCI with 1 stent. RCA has severe stenosis. Plan for staged PCI (Had discussion with patient and family post diagnostic images to discuss CABG vs PCI, patient and family wanted to proceed with PCI) Dual antiplatelet therapy with aspirin and plavix Staged PCI of RCA in 2-4 weeks Performing Provider: Mikhail Dumas Complications: None Condition: stable Disposition: floor Coding Level of Care Code Acute Code for Magalie Lee
--- NOTE | 2024-08-12 01:18 | PC.NURSE ---
sheath was pulled at 2053, hemostasis was achieved instantly, manual pressure held for 20 minutes, vital signs remained stable, no hematoma present, no bruising noted, site is soft, bandage placed over site, instructed patient to not move right leg for another 6 hours and to notify if any wet/warm feeling near the groin site, also to have staff in there upon getting up at 5, patient verbally acknowledged education
[2024-08-12 03:41] VITALS: BP 152/76; PULSE 98; RESP 20; TEMP 36.7; O2SAT 97
[2024-08-12 04:42] LABS: Basophils % 0.5 %; Eosinophils # 0.4 10^3/uL (0.0-0.8); Eosinophils % 5.4 %; Hematocrit 38.2 % (37-53); Lymphocytes # 2.1 10^3/uL (0.8-4.8); Lymphocytes % 27.9 %; Mean Corpuscular HGB Conc 33.5 g/dL (30-55); Mean Corpuscular Hemoglobin 31.6 pg (27-33); Mean Corpuscular Volume 94.3 fl (82-101); Mean Platelet Volume 10.3 fL (7.4-10.4); Monocytes # 0.5 10^3/uL (0.2-0.9); Monocytes % 6.8 %; Nucleated Red Blood Cells % 0 %; Platelet Count 182 10^3/cmm (157-399); Red Blood Count 4.05 10^6/uL (3.85-5.65); Red Cell Distribution Width 12.8 % (12.1-15.1); White Blood Count 7.63 10^3/uL (3.29-11.43)
[2024-08-12 05:02] LABS: Anion Gap 16.2 (5-19); Blood Urea Nitrogen 16 mg/dL (8-23); Calcium 8.6 mg/dL (8.5-10.5); Carbon Dioxide 22 mmol/L (22-29); Chloride 103 mmol/L (98-107); Creatinine Clr Calc Pharmacy 72.6577; Glomerular Filtration Rate 66.4 mL/min (90-130); Glucose 123 mg/dL (65-115); Osmolality Calculated 287 mOsm/kg (285-295); Potassium 4.2 mmol/L (3.5-5.1); Sodium 137 mmol/L (136-145)
[2024-08-12 05:45] VITALS: PULSE 85
[2024-08-12 06:10] LABS: Glucose Point of Care 159 mg/dL (70-110)
[2024-08-12 07:17] VITALS: BP 149/87; PULSE 68; RESP 22; TEMP 37.2; O2SAT 97
[2024-08-12] MEDS: aspirin 81 mg EC Tablet PO (07:57)
[2024-08-12] MEDS: doxycycline 100 mg Tablet PO (07:57)
[2024-08-12] MEDS: metoprolol succinate ER (24 HR) 25 mg Tablet 12.5 MG PO (07:58)
[2024-08-12] MEDS: sennosides 8.6 mg Tablet 17.2 MG PO (07:58)
[2024-08-12] MEDS: clopidogrel 75 mg Tablet PO (07:58)
[2024-08-12] MEDS: ALPRAZolam 0.5 mg Tablet PO (07:59)
[2024-08-12] MEDS: pantoprazole DR 40 mg Tablet PO (07:59)
[2024-08-12] MEDS: nicotine 21 mg Patch 1 PATCH TRANSDERMA (07:59)
[2024-08-12] MEDS: insulin lispro 100 unit/1 mL SUBCUT (08:00)
--- NOTE | 2024-08-12 08:11 | USCV_ITS ---
Tree Richey Age: 69 Gender: M : 1955 Exam Date: 08/12/2024 09:05 Ordering Phys: Evette Moya MD Technologist: [facility] [place] [facility] [place]: ? psuedo anur Findings normal vessells no psuedo normal blood flow Conclusions No evidence of pseudoaneurysm Charles Mccann MD (Electronically Signed) Final Date: 12 Aug 2024 12:05 S
--- NOTE | 2024-08-12 08:41 | P.PN_ITS ---
<Statement entered by Mikhail Dumas M.D - 08/14/24 13:27> Patient was cared for in conjunction with an advanced practice practitioner.? I reviewed the chart and all pertinent data including imaging, telemetry, and laboratory results.? I discussed the patient in detail with the advanced practice practitioner.? Please see? their note for complete progress note, testing results and agreed upon plan of care for the patient. Patient had doppler ultrasound ruling out significant complications including pseudoaneurysm Subjective 2 Subjective: He has been up ambulating in the hallway this morning. He has a roughly 5 cm soft hematoma on the right groin area. Will assess further with groin arterial duplex prior to discharge today. Some old oozing present on the dressing. Right radial cath site looks good, strong pulse, no pain. No chest pain, no shortness of breath. Blood pressure is well-controlled. Vitals/I&O/Wt Last Vital Signs Temp 98.9 F 08/12/24 07:17 Pulse 68 08/12/24 07:17 Resp 22 H 08/12/24 07:17 BP 149/87 08/12/24 07:17 Pulse Ox 97 08/12/24 07:17 O2 Del Method Room Air 08/12/24 07:17 08/11/24 08/12/24 08/12/24 22:59 06:59 14:59 Intake Total 1000 / 1398.333 398.333 / 1398.333 Output Total 1700 / 1700 Balance 1000 / -301.667 -1301.667 / -301.667 Weight last 48 hrs Weight 205 lb 4.8 oz Weight 201 lb 6 oz Physical Exam 2 Const: COMMON NORMALS: no acute distress and patient oriented x3 GENERAL APPEARANCE: cooperative ORIENTATION/CONSCIOUSNESS: Yes awake, Yes oriented to person, Yes oriented to place and Yes oriented to time Chest: COMMONS NORMALS: normal inspection of the chest and normal palpation of entire chest wall CHEST: Yes Symmetrical chest wall rise Resp: COMMON NORMALS: normal respiratory effort, No retractions, No use of accessory muscles and clear to auscultation bilaterally AUSCULTATION: clear to auscultation bilaterally Cardio: COMMON NORMALS: regular rate, regular rhythm, S1 normal heart sound present, S2 normal heart sound present, No gallops present (Cardio), No clicks present (Cardio), No murmurs present (Cardio) and No rub (Cardio) RATE: r egular rate RHYTHM: regular rhythm HEART SOUNDS: S1 normal heart sound present and S2 normal heart sound present PERIPHERAL PULSES: radial pulses present positive right 2+ and femoral pulses present positive right 2+ Neuro: COMMON NORMALS: patient oriented x3 and moves all extremities S ENSORIUM/ORIENTATION: Yes oriented to person, Yes oriented to place and Yes oriented to time Skin: WOUNDS: Yes surgical site (soft hematoma palpable) Details: no odor Data 08/12/24 04:30 08/12/24 04:30 A&P Assessment and plan (1) Non-ST elevation OR (NSTEMI): (2) Elevated troponin: (3) Abnormal EKG: (4) Coronary artery disease: Plan He is status post PCI of the LAD and left circumflex. Plan is to perform staged PCI of the RCA in 4 weeks. Continue aspirin and Plavix, metoprolol succinate and atorvastatin. Renal function is normal this morning. Once the arterial duplex is complete, ruling out pseudoaneurysm he can discharge home. Follow-up with cardiology clinic in 7 to 10 days. PDMP PDMP Reviewed: Not Reviewed Attestations 2 Medical Necessity Statement*: Possible discharge today Coding Level of Care Code Acute Code for [facility] Diagnoses Non-ST elevation OR (NSTEMI) I21.4 Elevated troponin R79.89 Abnormal EKG R94.31 Coronary artery disease I25.10
[2024-08-12 09:20] LABS: Creatinine, Random Urine 116 mg/dL (20-320); Protein, Total, Random 15 mg/dL (5-25); Protein/Creatinine Ratio 0.129 (0.025-0.148); Protein/Creatinine Ratio 129 mg/g creat (25-148)
--- NOTE | 2024-08-12 09:30 | PC.NURSE ---
Discharge pending ultrasound results.
[2024-08-12 11:20] LABS: Glucose Point of Care 136 mg/dL (70-110)
[2024-08-12 11:32] VITALS: BP 138/80; PULSE 86; RESP 21; O2SAT 94
[2024-08-12 11:34] LABS: ALBUMIN 3.3 g/dL (3.8-4.8); ALPHA 1 GLOBULIN 0.3 g/dL (0.2-0.3); ALPHA 2 GLOBULIN 0.6 g/dL (0.5-0.9); BETA 1 GLOBULIN 0.3 g/dL (0.4-0.6); BETA 2 GLOBULIN 0.3 g/dL (0.2-0.5); GAMMA GLOBULIN 0.7 g/dL (0.8-1.7)
--- NOTE | 2024-08-12 12:14 | PM.DCS ---
Discharge Providers Date of Admission: 08/05/24 08:23 Date of Discharge: August 12, 2024 Attending Provider at Admission: Karson Magaña Attending Provider at Discharge: Evette Moya MD Diagnoses at Discharge Discharge Diagnosis (1) Non-ST elevation CT (NSTEMI): Status: Acute (2) Elevated troponin: Status: Acute (3) Abnormal EKG: Status: Acute (4) Coronary artery disease: Status: Acute Reason for Visit Reason for Visit: DIZZY N/V fever Hospital Course Hospital Course 69-year-old male from [place] moved to [place]?3 months ago?and started having?high-grade fevers?3 days preceding this admission.? On admission?her symptoms of?severe chills, sweats fever up to 102?and teeth chattering?chills . he was found to have leukopenia and thrombocytopenia. Blood cultures, urine cultures,?chest x-ray?all negative for?cause of infection.? 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 CT of the abdomen and pelvis revealed an incidental 2.5 x 2.5 cm mass in the posterolateral aspect of the urinary bladder lumen which was suspicious for malignancy. He has been referred to urology as an outpatient. Patient received empiric course of antibiotics with ceftriaxone and then doxycycline was added later. With the addition of doxycycline patient's fever subsided. He was last febrile on August 06, 2024. With lab abnormalities of leukopenia, thrombocytopenia, deranged LFTs on admission along with improvement with doxycycline, presumptive diagnosis currently is that of a tick mediated illness such as ehrlichiosis or anaplasmosis. Tick panel is pending at discharge with the exception of Lyme antibody titer which is negative. Pending Rickettsia and Ehrlichia serology. Additionally pending Leptospira DNA, Brucella serology and a QuantiFERON screen.Patient's lab abnormalities are currently much improved. Leukopenia is resolved with WBC count improving to 4.1. Platelet count improving to 140s. LFTs remaining stable. Upon admission patient was also noted to have incidentally elevated troponins. Baseline troponin of 33 trending up to 53 at 2 hours and then downtrending at 6 hours to 47. Echocardiogram showed normal LVEF of 67%, mild left ventricular hypertrophy. There were no regional wall motion abnormalities. EKG had shown a right bundle branch block and T wave inversions in lead V3. Cardiology service was consulted and patient was recommended to undergo a stress test for further evaluation. This was abnormal as noted below. Follow up LHC was performed which showed Left main artery is patent. LAD has critical mid vessel disease s/p PCI with 1 stent. Distal lcx has severe stenosis s/p PCI with 1 stent. RCA has severe stenosis. He is Planned for staged PCI (Had discussion with patient and family post diagnostic images to discuss CABG vs PCI, patient and family wanted to proceed with PCI). Dual antiplatelet therapy with aspirin and plavix has been prescribed and he is recommended to undergo Staged PCI of RCA in 2-4 weeks. He needs to be established with a PCP locally and referral has been provided for the same. Physical Exam Narrative: General: No acute distress, AO x3 HEENT: PERRLA, pupils bilaterally equal and reactive, pallors not present Chest: Normal vesicular breath sounds, no added sounds, equal good air entry bilaterally CVS: S1-S2 regular, no murmurs, no tachycardia, no gallops, no rubs Abdomen: Soft, nontender, no organomegaly, bowel sounds present Neuro: No focal deficits, no facial deformity, AO x3, power 5/5 in all limbs Discharge Data Studies Completed and Pending Completed Studies During Hospitalization Category Date Time Status CT abdomen pelvis w con* [id number] Stat Cat Scan 08/05/24 03:[address] angio chest PE protcl [id number] Stat Cat Scan 08/05/24 03:09 Completed Cardiac Stress Test MIBI [Sestamibi Stress Test Request Exams 08/10/24 06:21 Draft ] Routine NM larry perf SPECT r/s* [id number] Routine Nuc Med 08/10/24 14:34 [place] [id number] Routine Ultrasound 08/12/24 08:11 Completed CV. 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 2.5 x 2.5 cm mass in the posterolateral aspect of the urinary bladder lumen. Highly suspicious for malignancy. Follow-up urology consultation is recommended. 2. No evidence of acute abdominal or pelvic process. 3. Tiny fat containing left periumbilical ventral hernia. COMMENTS: Consistent with the [place] [employer]'s Incidental Findings Committee white paper (J Am Pratima Radiol 2018): Any incidental renal lesion less than 1 cm or classified as too small to characterize, or any incidental cystic renal lesion characterized as simple-appearing, is likely benign. No follow-up imaging is recommended for these lesions per consensus recommendations based on imaging criteria. Chest CTA 08/05/24 03:09 IMPRESSION: 1. No evidence of pulmonary embolism. 2. Moderate emphysema. 3. There is nonspecific diffuse esophageal wall thickening, which may represent mild esophagitis. Clinical correlation recommended. COMMENTS: The presence of pulmonary emphysema on CT is an independent risk factor for lung cancer. In the absence of a history or active diagnosis of lung cancer, it is recommended that this patient with emphysema be evaluated for enrollment in a low dose CT lung cancer screening program. Laboratory Results WBC 7.63 10^3/uL (3.29-11.43) 08/12/24 04:30 RBC 4.05 10^6/uL (3.85-5.65) 08/12/24 04:30 Hgb 12.80 g/dL (11.27-16.99) 08/12/24 04:30 Hct 38.2 % (37-53) 08/12/24 04:30 MCV 94.3 fl (82-101) 08/12/24 04:30 MCH 31.6 pg (27-33) 08/12/24 04:30 MCHC 33.5 g/dL (30-55) 08/12/24 04:30 RDW 12.8 % (12.1-15.1) 08/12/24 04:30 Plt Count 182 10^3/cmm (157-399) 08/12/24 04:30 MPV 10.3 fL (7.4-10.4) 08/12/24 04:30 Neut % (Auto) 59.0 % 08/12/24 04:30 Lymph % (Auto) 27.9 % 08/12/24 04:30 Ritchie % (Auto) 6.8 % 08/12/24 04:30 Eos % (Auto) 5.4 % 08/12/24 04:30 Baso % (Auto) 0.5 % 08/12/24 04:30 Neut # (Auto) 4.50 10^3/uL (1.8-7.7) 08/12/24 04:30 Lymph # (Auto) 2.1 10^3/uL (0.8-4.8) 08/12/24 04:30 Ritchie # (Auto) 0.5 10^3/uL (0.2-0.9) 08/12/24 04:30 Eos # (Auto) 0.4 10^3/uL (0.0-0.8) 08/12/24 04:30 Baso # (Auto) 0.0 10^3/uL (0.0-0.1) 08/12/24 04:30 Nucleated RBC % (auto) 0 % 08/12/24 04:30 Nucleated RBCs # 0.0 /100WBC 08/12/24 04:30 Peripher Smr Path Cons Sent for review 08/05/24 00:33 ESR 8 mm/hr (0-10) 08/06/24 18:23 Haptoglobin 127.0 mg/L (30-200) 08/06/24 18:23 PT 13.10 SECONDS (12.1-14.9) 08/05/24 00:33 INR 0.93 (0.8-1.2) 08/05/24 00:33 APTT 37.4 SECONDS (23.9-36.7) H D 08/11/24 19:00 Fibrinogen 386 mg/dL (174-498) 08/06/24 18:23 Sodium 137 mmol/L (136-145) 08/12/24 04:30 Potassium 4.2 mmol/L (3.5-5.1) 08/12/24 04:30 Chloride 103 mmol/L (98-107) 08/12/24 04:30 Carbon Dioxide 22 mmol/L (22-29) 08/12/24 04:30 Anion Gap 16.2 (5-19) 08/12/24 04:30 BUN 16 mg/dL (8-23) 08/12/24 04:30 Creatinine 1.1 mg/dL (0.7-1.2) 08/12/24 04:30 GFR Calculation 66.4 mL/min (90-130) L 08/12/24 04:30 Glucose 123 mg/dL (65-115) H 08/12/24 04:30 POC Glucose 136 mg/dL (70-110) H 08/12/24 11:08 Calculated Osmolality 287 mOsm/kg (285-295) 08/12/24 04:30 Lactic Acid 1.2 mmol/L (0.5-2.2) 08/05/24 07:43 Calcium 8.6 mg/dL (8.5-10.5) 08/12/24 04:30 Ferritin 2842 ng/mL (30-400) H 08/06/24 18:23 Total Bilirubin 0.4 mg/dL (0.15-1.2) 08/11/24 04:25 AST 74 U/L (0-40) H 08/11/24 04:25 ALT 121 U/L (0-41) H 08/11/24 04:25 Alkaline Phosphatase 165 U/L (40-130) H 08/11/24 04:25 Lactate Dehydrogenase 268 U/L (135-225) H 08/06/24 18:23 Troponin T Baseline 33 ng/L (0-15) H 08/05/24 00:33 Troponin T 120 Minute 53.32 ng/L (0-15) H 08/05/24 02:25 Delta Troponin T 20.32 ABS# (0-10) H* 08/05/24 02:25 Troponin T Hi Sens 6Hr 47.33 ng/L (0-15) H 08/05/24 07:06 Troponin T Hi Sens 6Hr Delta 14.33 ng/L (0-12) H* 08/05/24 07:06 C-Reactive Protein 58.6 mg/L (0.0-4.9) H 08/06/24 18:23 NT-Pro-B Natriuret Pep 65 pg/mL (0-125) 08/05/24 00:33 Total Protein 6.5 g/dL (6.6-8.7) L 08/11/24 04:25 Albumin 3.7 g/dL (3.5-5.2) 08/11/24 04:25 Globulin 2.8 g/dL (1.3-4.6) 08/11/24 04: Hqyxm-6-Kgbaivovz 0.3 g/dL (0.2-0.3) 08/06/24 18:23 Efsbp-9-Plpudofwa 0.6 g/dL (0.5-0.9) 08/06/24 18:23 Phqz-9-Jivwglub 0.3 g/dL (0.4-0.6) L 08/06/24 18:23 Nuxu-4-Cfdbdoyg 0.3 g/dL (0.2-0.5) 08/06/24 18:23 Gamma Globulins 0.7 g/dL (0.8-1.7) L 08/06/24 18:23 Abnorm Protein Band 1 Not Reportable 08/06/24 18:23 Triglycerides 201 mg/dL (0-150) H 08/06/24 18:23 Aldolase 8.5 U/L (< OR = 8.1) H 08/07/24 12:08 Vitamin B12 308 pg/mL (232-1245) 08/05/24 00:33 Procalcitonin 0.17 ng/mL (0-0.5) 08/05/24 00:33 Urine Color Yellow (Yellow) 08/05/24 13:18 Urine Appearance Clear (CLEAR) 08/05/24 13:18 Urine pH 5.5 (5-7) 08/05/24 13:18 Ur Specific [place] 1.018 (1.005-1.030) 08/05/24 13:18 Urine Protein Trace (Negative) A 08/05/24 13:18 Urine Glucose (UA) Negative (Normal) 08/05/24 13:18 Urine Ketones Trace (Negative) 08/05/24 13:18 Urine Blood Negative (Negative) 08/05/24 13:18 Urine Nitrate Negative (Negative) 08/05/24 13:18 Urine Bilirubin Negative (Negative) 08/05/24 13:18 Urine Urobilinogen 1.0 mg/dL (Negative) 08/05/24 13:18 Ur Leukocyte Esterase Negative (Negative) 08/05/24 13:18 Urine RBC 0-2 /hpf (0-2) 08/05/24 13:18 Urine WBC 0-5 /hpf (0-5) 08/05/24 13:18 Ur Squamous Epith Cells 0-5 /hpf (0-5) 08/05/24 13:18 Amorphous Sediment Not Reportable 08/05/24 13:18 Urine Bacteria None seen /hpf (NONE) 08/05/24 13:18 Hyaline Casts 2.05 /lpf 08/05/24 13:18 Ur Random Creatinine 116 mg/dL (20-320) 08/11/24 10:34 U Random Total Protein 15 mg/dL (5-25) 08/11/24 10:34 Protein/Creatinin Ratio 129 mg/g creat (25-148) 08/11/24 10:34 Protein/Creat Ratio 24h 0.129 (0.025-0.148) 08/11/24 10:34 U Abnormal Prot Band 2 Not Reportable 08/06/24 18:23 U Abnormal Prot Band 3 Not Reportable 08/06/24 18:23 Urine Opiates Screen Negative ng/mL (Negative) 08/05/24 13:18 Ur Barbiturates Screen Negative ng/mL (Negative) 08/05/24 13:18 Ur Phencyclidine Scrn Negative ng/mL (Negative) 08/05/24 13:18 Ur Amphetamines Screen Negative ng/mL (Negative) 08/05/24 13:18 U Benzodiazepines Scrn Positive ng/mL (Negative) H 08/05/24 13:18 Urine Cocaine Screen Negative ng/mL (Negative) 08/05/24 13:18 U Marijuana (THC) Screen Negative ng/mL (Negative) 08/05/24 13:18 IgG 759 mg/dL (700-1600) 08/06/24 18:23 IgA 138 mg/dL (70-400) 08/06/24 18:23 IgM 104 mg/dL (40-230) 08/06/24 18:23 Pro Electrophoresis Int See note 08/06/24 18:23 Adenovirus (PCR) Not detected (NOT DETECT) 08/05/24 09:10 Lyme Ab (Western Blot) <0.90 index 08/05/24 10:43 C. pneumoniae DNA (PCR) Not detected (NOT DETECT) 08/05/24 09:10 C. trachomatis (PCR) Not detected 08/05/24 13:18 Coronavirus 229E (PCR) Not detected (NOT DETECT) 08/05/24 09:10 Hepatitis A IgM Ab Non-reactive (Nonreactive) 08/05/24 00:33 Hep Bs Antigen Non-reactive (Nonreactive) 08/05/24 00:33 Hep B Core IgM Ab Non-reactive (Nonreactive) 08/05/24 00:33 Hepatitis C Antibody Non-reactive (Nonreactive) 08/05/24 00:33 HIV 1&2 Ab & HIV 1 Ag Non-reactive (Non-Reactiv) 08/06/24 18:23 HIV 1&2 Antibody Non-reactive (Non-Reactiv) 08/06/24 18:23 Human Metapneumovir PCR Not detected (NOT DETECT) 08/05/24 09:10 Influenza A (H1) PCR Not detected (NOT DETECT) 08/05/24 09:10 Influenza A (PCR) Negative (Negative) 08/05/24 01:44 Influ A (H1/09) PCR Not detected (NOT DETECT) 08/05/24 09:10 Influenza A (H3) PCR Not detected (NOT DETECT) 08/05/24 09:10 Influenza Type A (PCR) Not detected (NOT DETECT) 08/05/24 09:10 Influenza Type B (PCR) Not detected (NOT DETECT) 08/05/24 09:10 M. pneumoniae (PCR) Not detected (NOT DETECT) 08/05/24 09:10 N. gonorrhoeae (PCR) Not detected 08/05/24 13:18 Parainfluenza 1 (PCR) Not detected (NOT DETECT) 08/05/24 09:10 Parainfluenza 2 (PCR) Not detected (NOT DETECT) 08/05/24 09:10 Parainfluenza 3 (PCR) Not detected (NOT DETECT) 08/05/24 09:10 Parainfluenza 4 (PCR) Not detected (NOT DETECT) 08/05/24 09:10 RSV (PCR) Negative (Negative) 08/05/24 01:44 RSV Type A (PCR) Not detected (NOT DETECT) 08/05/24 09:10 RSV Type B (PCR) Not detected (NOT DETECT) 08/05/24 09:10 Entero/Rhino (PCR) Not detected (NOT DETECT) 08/05/24 09:10 SARS-CoV-2 (PCR) Not detected (NOT DETECT) 08/05/24 09:10 Anti-DNase B (Strep) 99 U/mL (<301) 08/06/24 18:23 Group A Strep Rapid Negative (Negative) 08/06/24 16:46 Vitals Last Vital Signs Temp 98.9 F 08/12/24 07:17 Pulse 86 08/12/24 11:32 Resp 21 H 08/12/24 11:32 BP 138/80 08/12/24 11:32 Pulse Ox 94 08/12/24 11:32 O2 Del Method Room Air 08/12/24 07:17 Discharge Plan Discharge Patient Disposition: Home Condition: Stable Prescriptions: New doxycycline monohydrate 100 mg Tablet 100 mg PO BID 7 Days Qty: 14 0RF pantoprazole [Protonix] 40 mg tablet,delayed release (DR/EC) 40 mg PO DAILY 28 Days Qty: 30 0RF clopidogrel 75 mg Tablet 75 mg PO DAILY 30 Days Qty: 30 0RF metoprolol succinate 25 mg Tablet Extended Release 24 Hr 12.5 mg PO DAILY 30 Days Qty: 30 0RF Continued metformin 500 mg Tablet 500 mg PO BID aspirin [Ani Low Dose Aspirin] 81 mg Tablet,Delayed Release (Dr/Ec) 81 mg PO DAILY lisinopril 10 mg Tablet 10 mg PO DAILY rosuvastatin 20 mg Tablet 20 mg PO DAILY Men 50 Plus Multivitamin [id number] mcg Tablet 1 tab PO DAILY Discharge Orders: Discharge Order (Routine); Ordered 08/12/24 Ordered By: Evette Moya Referrals: Aden Padilla [Referring, Urology] - 08/19/24 1:30 pm Referral Note: newly discovered bladder mass 2.5 x 2.5 cm- concern for malignancy Paola Cooper, SAP SOLUTION MANAGER CONSULTANT [Nurse Practitioner, Family Practice] - 08/16/24 10:00 am Referral Note: Please arrive at 09:45 for check in. Kika Escobar MD [Physician, Cardiology] - 2 weeks Referral Note: During your appointment with Celine Funk, you will be scheduled for an appointment with Dr. Escobar. Celine Funk FNP [Nurse Practitioner, Cardiology] - 08/30/24 1:00 pm Referral Note: first available SAP SOLUTION MANAGER CONSULTANT or accounting teacher. Hospital discharge f/up needs to establish with cardiology Discharge Diet: Cardiac Discharge Activity: Resume usual activity Patient Instructions: Metoprolol (By mouth) (Lopressor, Toprol XL), Doxycycline (By mouth) (Acticlate, Adoxa, Avidoxy, Monodox, Doryx), Clopidogrel (By mouth) (Plavix), Pantoprazole (By mouth) (Protonix), Fever - Adult, Coronary Angioplasty (DC), Dyspnea (DC), Opioid Safety, Post Angiogram Home Care Instructions Discharge Attestations Time Spent in Discharge Care*: greater than 30 min Quality Metrics Clinical Quality Measures [ No reported AMI, CVA or VTE this stay] Coding Level of Care Code Acute Code for [facility] Diagnoses Non-ST elevation CT (NSTEMI) I21.4 Elevated troponin R79.89 Abnormal EKG R94.31 Coronary artery disease I25.10
[2024-08-12 12:59] LABS: Quantiferon Mitogen 7.89 IU/mL; Quantiferon Nil 0.61 IU/mL; Quantiferon Plus TB1 0.08 IU/mL; Quantiferon TB Gold NEGATIVE (NEGATIVE)
[2024-08-12 17:43] LABS: Immunofixation Serum Normal pattern.
[2024-08-12 21:20] LABS: RMSF IGG NOT DETECTED; RMSF IGM NOT DETECTED
[2024-08-13 19:01] LABS: Leptospira DNA QL NOT DETECTED; Leptospira Source WHOLE BLOOD
[2024-08-14 16:49] LABS: E. Chaffeensis AB IGG <1:64; E. Chaffeensis AB IGM <1:20
[2024-08-14 22:04] LABS: Brucella AB Agglutination <1:80 titer
[2024-08-18 13:05] LABS: Albumin,Urine Random 100 %; Alpha-1-Globulins Urine Random 0 %; Alpha-2-Globulins Urine Random 0 %; Beta-Globulin,Urine Random 0 %; Gamma Globulin,Urine Random 0 %
== END 2024-08-12 12:43 | disposition home or self-care (01) | DRG 322 ==
LOC: ER 07:17 → ER IP 08:24 → CSU 11:18
PROVIDERS: General Practice; Internal Medicine; Internal Medicine Cardiovascular Disease; Nurse Practitioner Family; Admitting Provider Internal Medicine; Emergency Provider Family Medicine; Visit Provider Student in an Organized Health Care Education/Training Program
PROC: 027135Z Dilation of Coronary Artery, Two Arteries with Two Drug-eluting Intraluminal Devices, Percutaneous Approach (ICD-10-PCS; principal; 2024-08-11 11:00)
PROC: 027135Z Dilation of Coronary Artery, Two Arteries with Two Drug-eluting Intraluminal Devices, Percutaneous Approach (ICD-10-PCS; 2024-08-11 11:00)
DX: I21.4 Non-ST elevation (NSTEMI) myocardial infarction (principal); N17.9 Acute kidney failure, unspecified; I25.10 Atherosclerotic heart disease of native coronary artery without angina pectoris; D69.6 Thrombocytopenia, unspecified; K20.90 Esophagitis, unspecified without bleeding; N32.9 Bladder disorder, unspecified; I45.10 Unspecified right bundle-branch block; K42.9 Umbilical hernia without obstruction or gangrene; R00.0 Tachycardia, unspecified; G89.29 Other chronic pain; M54.9 Dorsalgia, unspecified; E11.9 Type 2 diabetes mellitus without complications; D72.819 Decreased white blood cell count, unspecified; J44.9 Chronic obstructive pulmonary disease, unspecified; I10 Essential (primary) hypertension; R31.29 Other microscopic hematuria; F17.210 Nicotine dependence, cigarettes, uncomplicated; E78.5 Hyperlipidemia, unspecified; Z79.02 Long term (current) use of antithrombotics/antiplatelets; Z79.84 Long term (current) use of oral hypoglycemic drugs; Z82.49 Family history of ischemic heart disease and other diseases of the circulatory system; Z83.3 Family history of diabetes mellitus
CPT/HCPCS: 36415; 36416; 71275; 74177; 78452; 80048; 80053; 80074; 80306; 80503; 81001; 82085; 82570; 82607; 82728; 82784; 82962; 83010; 83605; 83615; 83880; 84145; 84155; 84156; 84165; 84166; 84478; 84484; 85025; 85347; 85384; 85610; 85651; 85730; 86140; 86215; 86334; 86403; 86480; 86618; 86622; 86666; 86757; 87040; 87081; 87086; 87449; 87486; 87491; 87581; 87591; 87633; 87637; 87798; 87806; 87880; 93005; 93017; 93308; 93350; 93352; 93454; 93926; 96365; 96366; 96372; 96375; 99152; 99153; 99285; A9270; A9500; C1725; C1769; C1874; C1887; C1894; C9600; J0696; J1644; J1815; J2250; J2405; J2785; J3010; J3490; J7030; J7120; J9999; Q9967

== ENCOUNTER → 2024-08-30 13:04 | Outpatient (BNVA) | payer MEDICARE, SELFPAY | PROVIDERS: Visit Provider Nurse Practitioner Family | DX: Z09 Encounter for follow-up examination after completed treatment for conditions other than malignant neoplasm (principal); I25.2 Old myocardial infarction; I25.10 Atherosclerotic heart disease of native coronary artery without angina pectoris; Z79.02 Long term (current) use of antithrombotics/antiplatelets; Z79.82 Long term (current) use of aspirin; F17.200 Nicotine dependence, unspecified, uncomplicated; I21.4 Non-ST elevation (NSTEMI) myocardial infarction | CPT/HCPCS: 36415; 80048; 99214 ==

== ENCOUNTER 2024-09-07 07:37 | Outpatient (CLI) | payer MEDICARE, SELFPAY ==
[2024-09-07] VITALS (15 sets, daily range): BP systolic 133–179; BP diastolic 72–93; PULSE 73–93; RESP 16–21; TEMP 36.4–36.7; O2SAT 93–97; BMI 28.7
[2024-09-07] MEDS: diphenhydrAMINE 50 mg Capsule PO (08:00)
[2024-09-07 08:32] LABS: Anion Gap 16.2 (5-19); Blood Urea Nitrogen 17 mg/dL (8-23); Calcium 9.6 mg/dL (8.5-10.5); Carbon Dioxide 23 mmol/L (22-29); Chloride 102 mmol/L (98-107); Glucose 141 mg/dL (65-115); Osmolality Calculated 288 mOsm/kg (285-295); Potassium 4.2 mmol/L (3.5-5.1); Sodium 137 mmol/L (136-145)
--- NOTE | 2024-09-07 08:42 | W.PM.OPSUD ---
Surgery/Procedure H&P Update DATE OF PROCEDURE: September 07, 2024 DATE H&P PERFORMED: 08/30/24 H&P UPDATE INFORMATION: I have reviewed H&P completed within last 30 days, I have examined patient prior to procedure and No changes to prior documentation PREOP DIAGNOSIS: Staged PCI of RCA PRIMARY INDICATION FOR PROCEDURE: Staged PCI of RCA PLANNED PROCEDURE: Operation Date: 09/07/24 08:30 Proposed Procedures p Percutaneous Coronary Intervention(Right) - Mikhail Dumas M.D PATIENT REASSESSED PRIOR TO SEDATION, WITH NO CHANGE NOTED: Yes PHYSICAL EXAM: alert, oriented x 3, clear to auscultation bilaterally and regular rate & rhythm AIRWAY EVAL/ANESTHESIA PLAN: normal airway, ASA III, Local Anesthesia, Risks, benefits & alternatives of sedation and/or procedure discussed and Patient agrees to continue as planned ADDITIONAL INFORMATION: Moderate sedation
--- NOTE | 2024-09-07 09:50 | PM.PROC ---
Procedure Note: Date of procedure: 09/07/24 Pre-procedure diagnosis: Severe proximal to mid RCA stenosis. Staged PCI of RCA Post-procedure diagnosis: other (Status post successful revascularization of RCA with 2 stents) Procedure: Severe proximal to mid RCA stenosis status post successful revascularization with 2 stents. Dual antiplatelet therapy with aspirin and plavix High intensity statin therapy Coding Level of Care Code Acute Code for [facility] F[facility]
--- NOTE | 2024-09-07 09:52 | SUR.PHASEI ---
POST CATH NOTE Received patient from the lab manager. Status post cardiac catheterization via the right femoral approach. Site is Angiosealed. Hemostatic at this time. See PCS documentation for vitals and flowsheet assessments. Call light within reach. MD in to discuss findings with the pateint/family. Informed to call for needs.
--- NOTE | 2024-09-07 09:55 | SUR.PHASEI ---
post cath fluids set at 50 ml/hr for 6 hours per verbal order from Dr Dumas.
--- NOTE | 2024-09-07 13:27 | SUR.PHASEI ---
MD NOTIFICATION Patient states he is feeling anxious. He is requesting some anxiety medications. MD notified. PRN anxiety meds ordered.
--- NOTE | 2024-09-07 13:31 | XACV_ITS ---
Exam Room: 2 Ht: 178 cm Wt: 91 kg BSA: 2.14 m2 Gender: Male : 1955 Any Known Allergies: No known allergies Exam Priority: Routine Procedure(s): Procedure Description: Diagnostic procedure Procedure Description: PCI procedure Procedure Description: Drug Eluting Coronary Stent Procedure Description: PTCA Procedure Description: Miscellaneous Procedure Description: Angio-Seal Procedure Description: ACT Diagnostic Cath Status: Elective Diagnostic Findings * INDICATION: Staged PCI of RCA. * Left system not injected as it is a staged PCI. * Proximal Right Coronary Artery to Mid Right Coronary Artery: significant 80% stenosis, KODAK: 3 flow. * Mid Right Coronary Artery: significant 80% stenosis, KODAK: 3 flow. * Coronary angiography shows right dominance. PCI Status: Elective PCI Indication: Staged PCI Interventional Findings * Procedure detail: We engaged RCA with AL 0.75 guide catheter. Run-through wire was used to cross the stenosis. We predilated the stenosis with 2.5 x 15 mm semicompliant balloon. This was followed by placement of 2.75 x 26 mm resolute [place] drug-eluting stent in the mid RCA. We then placed an overlapping 3.0 x 26 mm resolute [place] drug-eluting stent from proximal to mid RCA. Stents were postdilated with 3.25 x 12 mm NC balloon. At this time final angiogram was performed that showed excellent stent expansion and no residual stenosis. Guide catheter and guidewire were removed. Patient left the Patient Services Clerk in a stable condition. * Proximal Right Coronary Artery to Mid Right Coronary Artery: 80% stenosis treated with a AB TREK 2.50X15 RX BALLOON, MDT R KALLI 3.0X26 LEVAR, and MDT NC EUPHORA RX [id number] BALLOON. 0% residual stenosis, KODAK: 3 flow. * Mid Right Coronary Artery: 80% stenosis treated with a AB TREK 2.50X15 RX BALLOON, MDT R KALLI 2.75X26 LEVAR, and MDT NC EUPHORA RX [id number] BALLOON. 0% residual stenosis, KODAK: 3 flow. Conclusions 1. Severe proximal to mid RCA stenosis s/p PCI with 2 stents. 2. Proximal Right Coronary Artery to Mid Right Coronary Artery was treated with a Balloon, Drug Eluting Stent, and Balloon. 3. Mid Right Coronary Artery was treated with a Balloon, Drug Eluting Stent, and Balloon. Recommendations * Dual antiplatelet therapy. * High intensity statin therapy. * Outpatient cardiology follow up in 2 weeks. Interventional RX Recommendation: PCI w/o planned CABG Diagnostic RX Recommendation: PCI w/o planned CABG Anticoagulation: Heparin Pressures Phase:Rest AO : 141 / 83 ( 110 ) @ 10:07:00 AM 138 / 98 ( 118 ) @ 10:13:00 AM Clinical Evaluation EBL: 5mL-10mL Procedural Details Procedure Consent Obtained. Current Diagnosis : Chest Pain. Pre-Procedure Time Out. Identified patient by full name and date of as verbalized by the patient/guarantor. Does the consent match the physician's order: Yes. Accurate & Complete Informed Consent: Yes. Inpatient/Outpatient History & Physical on Chart: Yes. If H&P is completed, is and addenduem needed: No; If yes, is the addendum complete: N/A. Visualize and Verify Site with Patient/Guarantor: N/A. Relevant Radiology Images available: Yes. Pre-op teaching completed and patient verbalized understanding. The risks, benefits, and alternatives of sedation and/or procedure were discussed by physician. The patient agrees to continue. Procedure started. [facility] Clinical Fraility Score: 3: Managing Well. Patient Services Clerk Indications: Stable Known CAD. Chest Pain Symptom Assessment: Typical Angina Symptoms. Correct patient, site and procedure confirmed by cath team. Current diagnosis: Chest Pain. PERRLA. Strong, equal hand payroll manager bilaterally. Lungs clear x 5 lobes. IV Site on Arrival: 20 gauge in the right forearm. IV Fluids: 0.9% NaCl at KVO. 0 mL infused prior to laborer stores. Physician arrived. Pre Procedural Pulses: bilateral dorsalis pedis was 2+. Pre Procedural Pulses: bilateral posterior tibial was 2+. Pre Procedural Pulses: bilateral radial was 3+. Oxygen started at 2liters/min via nasal canula. right radial was prepped with chloroprep then draped in the usual sterile fashion. right groin was prepped with chloroprep then draped in the usual sterile fashion. Baseline sample Acquired. HR: 89 BPM. Physician scrubbed in. Immediate Pre-Procedure Time Out. Correct Patient: Yes; Correct Procedure: Yes; Correct Site: Yes; Correct Patient Position: Yes; Correct Supplies: Yes; Dried Flammable Prep: Yes; Blood Products Available: N/A;. Lidocaine 1% infiltrated to the right radial. Arterial access obtained. Wire unable to advance. Wire and needle out. TR band placed. Hemostasis obtained. Lidocaine 1% infiltrated to the right groin. Ultrasound being used to obtain arterial access. Lidocaine 1% infiltrated to the right groin. 6 polish AL 0.75 guide catheter was inserted over the wire. Runthrough guidewire was advanced through the guide catheter to lesion in the mid RCA. Inflation number : 1 A AB TREK 2.50X15 RX BALLOON was prepped and advanced across the Mid RCA , then inflated to 8 JULIANNE for 0:14 seconds. Inflation number: 2 The AB TREK 2.50X15 RX BALLOON was reinflated across the Mid RCA, to 10 JULIANNE for 0:13 seconds. Inflation number: 1 The AB TREK 2.50X15 RX BALLOON was reinflated across the Prox RCA, to 12 JULIANNE for 0:10 seconds. Balloon out. Inflation Number : 3 A ALEYDA Galicia KALLI 2.75X26 LEVAR -Lot Number# _[id number] EXP: 06/14/2027 was prepped and advanced across the Mid RCA. The stent was deployed at 12 JULIANNE for 0:18 seconds. Stent balloon out over wire. Inflation Number : 2 A ALEYDA Galicia KALLI 3.0X26 LEVAR -Lot Number# _[id number] EXP: 07/24/2026 was prepped and advanced across the Prox RCA. The stent was deployed at 12 JULIANNE for 0:16 seconds. Stent balloon out over wire. Results checked. 3.25x27 NC Euphora Balloon inserted to lesion in the prox RCA. Balloon out. 3.39v05ez NC Euphora Balloon inserted to lesion in the prox RCA. Inflation number : 3 A MDT NC EUPHORA RX [id number] BALLOON was prepped and advanced across the Prox RCA , then inflated to 16 JULIANNE for 0:11 seconds. Balloon out. Guideliner inserted OTW. Inflation number : 4 A MDT NC EUPHORA RX [id number] BALLOON was prepped and advanced across the Mid RCA , then inflated to 16 JULIANNE for 0:13 seconds. Inflation number: 5 The MDT NC EUPHORA RX 3.45Z63IZ BALLOON was reinflated across the Mid RCA, to 16 JULIANNE for 0:10 seconds. Balloon out. Results checked. Guideliner out. Guide catheter out. ACT drawn. Results 346 seconds. Therapeutic limits - pre-heparin administration 90-150 seconds and monitoring heparin during a vascular procedure >250 seconds. A Right femoral angiogram was performed to determine safe placement of closure device. Lidocaine 1% infiltrated to the right groin. A Angio-Seal VIP (St. Estiven) was successful obtaining hemostatsis at the Right Femoral artery insertion site. Post Procedure: Pulses reassessed and unchanged. PERRLA. Strong, equal hand payroll manager bilaterally. No VTE prophylaxis required. Medication's Wasted: Lidocaine 1% = 10 mL. Medication's Wasted: Heparin = 2000 units. Total IV fluids: 48 mL. Post-op diagnosis: Stent to RCA. Complications: None. Estimated blood loss: 5mL-10mL. Responsiveness - Normal response to verbal stimuli; alert and oriented, PERRLA. Airway - Unaffected, no intervention required; spontaneous ventilation. Circulation: W/N/L, pulses unchanged. Nausea/Vomiting: No. Procedure completed. Vital chart was stopped. Patient transferred by stretcher to CPRU. Access Site Site: Right Femoral artery Sheath Size: 6 Fr Hemostasis Method: Angio-Seal VIP ([place]. [place]) Hemostasis Success: Successful Procedure Medications Start: 8:43 AM Stop: 8:43 AM Medication: Versed Amount: 1 mg Route: I.V. Start: 8:43 AM Stop: 8:43 AM Medication: Fentanyl Amount: 50 mcg Route: I.V. Start: 8:48 AM Stop: 8:48 AM Medication: Versed Amount: 1 mg Route: I.V. Start: 8:54 AM Stop: 8:54 AM Medication: Versed Amount: 1 mg Route: I.V. Start: 8:54 AM Stop: 8:54 AM Medication: Fentanyl Amount: 50 mcg Route: I.V. Start: 8:55 AM Stop: 8:55 AM Medication: Nitrogylcerin Amount: 200 mcg Route: I.A. Start: 9:07 AM Stop: 9:07 AM Medication: Heparin Amount: 8000 units Route: I.V. Start: 9:13 AM Stop: 9:13 AM Medication: Fentanyl Amount: 25 mcg Route: I.V. Start: 9:20 AM Stop: 9:20 AM Medication: Plavix Amount: 300 mg Route: P.O. Start: 9:23 AM Stop: 9:23 AM Medication: Versed 1 mg and Fentanyl 25 mcg Amount: 1 Route: I.V. Start: 9:29 AM Stop: 9:29 AM Medication: Heparin Amount: 1000 units Route: I.V. Start: 9:40 AM Stop: 9:40 AM Medication: Fentanyl Amount: 50 mcg Route: I.V. I, the attending physician, have reviewed and verified all procedure medications. Yes, all medications given per verbal order History/Risk Factors Hypertension: Yes Dyslipidemia: Yes Peripheral Arterial Disease (PAD): No Myocardial Infarction ([place]): No Obesity: No Renal Disease: No Tobacco Use: Current/Recent(w/in 1 year) Prior Interventions PCI: Yes CABG: No Valve Surgery: No Report Signatures Finalized by Mikhail Dumas MD on 09/21/2024 12:27 PM
[2024-09-07] MEDS: ALPRAZolam 0.5 mg Tablet 0.25 MG PO ×2 (13:46→21:20)
--- NOTE | 2024-09-07 15:14 | PC.NURSE ---
patient arrived from optical lab technician at 1413. Report taken from Angella Barajas RN. Patient is allowed to get up and move as up time was 1330. Mild oozing noted at femoral site where angioseal was placed.
--- NOTE | 2024-09-07 17:59 | PC.NURSE ---
patient asked for a nicotine patch, nurse asked Dr Dumas if patient could have a patch and he said yes. 21mg nicotiine patch ordered.
[2024-09-07] MEDS: nicotine 21 mg Patch 1 PATCH TRANSDERMA (18:20)
[2024-09-07] MEDS: atorvastatin 40 mg Tablet 20 MG PO (21:20)
[2024-09-08 03:12] VITALS: BP 125/70; PULSE 89; RESP 18; TEMP 36.4; O2SAT 96
[2024-09-08 03:55] LABS: Basophils # 0.1 10^3/uL (0.0-0.1); Basophils % 0.7 %; Eosinophils # 0.7 10^3/uL (0.0-0.8); Eosinophils % 8.7 %; Hematocrit 36.3 % (37-53); Lymphocytes # 1.4 10^3/uL (0.8-4.8); Lymphocytes % 18.3 %; Mean Corpuscular HGB Conc 33.3 g/dL (30-55); Mean Corpuscular Hemoglobin 32.6 pg (27-33); Mean Corpuscular Volume 97.8 fl (82-101); Mean Platelet Volume 10.1 fL (7.4-10.4); Monocytes # 0.5 10^3/uL (0.2-0.9); Monocytes % 6.1 %; Neutrophils # 4.99 10^3/uL (1.8-7.7); Neutrophils % 66.1 %; Nucleated Red Blood Cells % 0 %; Platelet Count 144 10^3/cmm (157-399); Red Blood Count 3.71 10^6/uL (3.85-5.65); Red Cell Distribution Width 13.4 % (12.1-15.1); White Blood Count 7.55 10^3/uL (3.29-11.43)
[2024-09-08 04:21] LABS: Blood Urea Nitrogen 19 mg/dL (8-23); Calcium 8.9 mg/dL (8.5-10.5); Carbon Dioxide 24 mmol/L (22-29); Chloride 103 mmol/L (98-107); Creatinine Clr Calc Pharmacy 60.7499; Glomerular Filtration Rate 54.7 mL/min (90-130); Glucose 189 mg/dL (65-115); Osmolality Calculated 293 mOsm/kg (285-295); Sodium 138 mmol/L (136-145)
[2024-09-08 04:25] LABS: Anion Gap 15.1 (5-19); Potassium 4.1 mmol/L (3.5-5.1)
[2024-09-08 07:50] VITALS: BP 135/60; PULSE 84; RESP 20; TEMP 36.4; O2SAT 97
[2024-09-08] MEDS: clopidogrel 75 mg Tablet PO (08:15)
[2024-09-08] MEDS: metoprolol succinate ER (24 HR) 25 mg Tablet PO (08:15)
[2024-09-08] MEDS: lisinopril 10 mg Tablet PO (08:15)
[2024-09-08] MEDS: aspirin 81 mg EC Tablet PO (08:15)
--- NOTE | 2024-09-08 09:54 | PM.DCS ---
Discharge Providers Date of Admission: 09/07/2024 Date of Discharge: September 08, 2024 Attending Provider at Admission: Dr. Dumas Attending Provider at Discharge: Mikhail Dumas M.D Primary Care Provider: Paola Cooper NP Reason for Visit Reason for Visit: I21.4 Brief History: This is a 69-year-old gentleman who has a history of NSTEMI and received drug-eluting stent to the LAD and left circumflex previously. It was noted he had a severe stenosis of the RCA and came for a planned staged PCI of the RCA. Hospital Course Hospital Course Patient came for planned staged procedure of the RCA. Please see below procedure note for further details. He did well postprocedure without complications. He will be discharged home in stable to improved condition. Right femoral site was sealed with Angio-Seal and no evidence of hematoma present. Discharge instructions were given to the patient. He will continue aspirin and Plavix as well as statin. He will follow-up in 1 week for lab work as well as a visit with us. On exam he does have a right carotid bruit. I have ordered a carotid duplex for outpatient. Physical Exam Narrative: General: No apparent distress, healthy appearing, well nourished HENMT: normoceophalic Neck: Right carotid bruit present Muskuloskeletal: Full ROM Respiratory: Normal respiratory effort, clear to auscultation bilaterally throughout all lung scruggs, no use of accessory muscles Cardio: No JVD, regular rate, regular rhythm, S1 S2 normal, no murmurs, peripheral pulses 2+ radial palpated bilaterally GI: Normal to inspection, nondistended Extremities: Full ROM, normal, normal capillary refill, no cyanosis or edema Neuro: Alert and oriented x4, no focal motor deficits Psych: Affect normal, mental status grossly normal Skin: Right femme stick site clean dry intact well-approximated no signs or symptoms of hematoma or pseudoaneurysm present Discharge Data Studies Completed and Pending Pending at discharge Category Date Time Status DIGITAL PUBLISHING SPECIALIST request for service Routine Exams 09/07/24 13:31 Taken Laboratory Results WBC 7.55 10^3/uL (3.29-11.43) 09/08/24 03:07 RBC 3.71 10^6/uL (3.85-5.65) L 09/08/24 03:07 Hgb 12.10 g/dL (11.27-16.99) 09/08/24 03:07 Hct 36.3 % (37-53) L 09/08/24 03:07 MCV 97.8 fl (82-101) 09/08/24 03:07 MCH 32.6 pg (27-33) 09/08/24 03:07 MCHC 33.3 g/dL (30-55) 09/08/24 03:07 RDW 13.4 % (12.1-15.1) 09/08/24 03:07 Plt Count 144 10^3/cmm (157-399) L 09/08/24 03:07 MPV 10.1 fL (7.4-10.4) 09/08/24 03:07 Neut % (Auto) 66.1 % 09/08/24 03:07 Lymph % (Auto) 18.3 % 09/08/24 03:07 Grimes % (Auto) 6.1 % 09/08/24 03:07 Eos % (Auto) 8.7 % 09/08/24 03:07 Baso % (Auto) 0.7 % 09/08/24 03:07 Neut # (Auto) 4.99 10^3/uL (1.8-7.7) 09/08/24 03:07 Lymph # (Auto) 1.4 10^3/uL (0.8-4.8) 09/08/24 03:07 Grimes # (Auto) 0.5 10^3/uL (0.2-0.9) 09/08/24 03:07 Eos # (Auto) 0.7 10^3/uL (0.0-0.8) 09/08/24 03:07 Baso # (Auto) 0.1 10^3/uL (0.0-0.1) 09/08/24 03:07 Nucleated RBC % (auto) 0 % 09/08/24 03:07 Nucleated RBCs # 0.0 /100WBC 09/08/24 03:07 Sodium 138 mmol/L (136-145) 09/08/24 03:07 Potassium 4.1 mmol/L (3.5-5.1) 09/08/24 03:07 Chloride 103 mmol/L (98-107) 09/08/24 03:07 Carbon Dioxide 24 mmol/L (22-29) 09/08/24 03:07 Anion Gap 15.1 (5-19) 09/08/24 03:07 BUN 19 mg/dL (8-23) 09/08/24 03:07 Creatinine 1.3 mg/dL (0.7-1.2) H 09/08/24 03:07 GFR Calculation 54.7 mL/min (90-130) L 09/08/24 03:07 Glucose 189 mg/dL (65-115) H 09/08/24 03:07 Calculated Osmolality 293 mOsm/kg (285-295) 09/08/24 03:07 Calcium 8.9 mg/dL (8.5-10.5) 09/08/24 03:07 Procedures Performed Date of procedure: 09/07/24 Pre-procedure diagnosis: Severe proximal to mid RCA stenosis. Staged PCI of RCA Post-procedure diagnosis: other (Status post successful revascularization of RCA with 2 stents) Procedure: Severe proximal to mid RCA stenosis status post successful revascularization with 2 stents. Dual antiplatelet therapy with aspirin and plavix High intensity statin therapy Vitals Last Vital Signs Temp 97.5 F L 09/08/24 07:50 Pulse 84 09/08/24 07:50 Resp 20 H 09/08/24 07:50 BP 135/60 09/08/24 07:50 Pulse Ox 97 09/08/24 07:50 O2 Del Method Room Air 09/08/24 07:50 Discharge Plan Discharge Patient Disposition: Home Prescriptions: Continued clopidogrel 75 mg tablet 75 mg PO DAILY Qty: 90 3RF metoprolol succinate 25 mg tablet extended release 24 hr 25 mg PO DAILY Qty: 90 3RF nicotine 14 mg/24 hr patch 24 hour 1 patch transdermal DAILY Qty: 28 0RF aspirin [Ani Low Dose Aspirin] 81 mg Tablet,Delayed Release (Dr/Ec) 81 mg PO DAILY lisinopril 10 mg Tablet 10 mg PO DAILY rosuvastatin 20 mg Tablet 20 mg PO DAILY Men 50 Plus Multivitamin [id number] mcg Tablet 1 tab PO DAILY Held metformin 500 mg Tablet 500 mg PO BID Hold Instructions: Resume on 09/11/24. Discharge Orders: Discharge Order (Routine); Ordered 09/08/24 Ordered By: Elaine Kat Other Ambulatory Orders: CV carotid duplex BI* [id number] (Routine) Timeframe: 2 Weeks Facility: [facility] - Location: Radiology [facility] [place] [facility] Ordered By: Elaine Kat CV carotid duplex BI* [id number] (Routine) Timeframe: 2 Weeks Facility: [facility] - Location: Radiology [facility] [place] [facility] Ordered By: Elaine Kat Referrals: Elaine Kat SERVICE ATTENDANT CAFETERIA [Nurse Practitioner, Cardiology] - 09/14/24 8:30 am Paola Cooper NP [Primary Care Provider, Family Practice] - 09/08/24 1:20 pm Diet: As Directed and Cardiac Activity: Increase activity as tolerated and Limit activity as instructed Patient Instructions: Coronary Angioplasty (DC), Post Angiogram Home Care Instructions Activity Restrictions/Additional Instructions: Discussed with patient no heavy lifting more than a gallon of milk as well as going up or down steps for 3 days. No driving for 3 days. Monitor for and report signs or symptoms of bleeding. Monitor for and report s/s of infection such as fever 101 or greater, swelling, redness or pain to the groin. Print Language: Surinamese Discharge Date/Time: 09/08/24 09:16 Discharge Attestations Time Spent in Discharge Care*: less than 30 min Quality Metrics Clinical Quality Measures [ No reported AMI, CVA or VTE this stay] Coding Level of Care Code Acute Code for Chg Fwd
== END 2024-09-08 09:16 | disposition home or self-care (01) ==
LOC: CCL 07:39 → CSU 14:17
PROVIDERS: Nurse Practitioner Family; Visit Provider Internal Medicine
DX: I25.10 Atherosclerotic heart disease of native coronary artery without angina pectoris (principal); I10 Essential (primary) hypertension; E78.5 Hyperlipidemia, unspecified; I25.2 Old myocardial infarction; Z79.82 Long term (current) use of aspirin; Z79.84 Long term (current) use of oral hypoglycemic drugs; K21.9 Gastro-esophageal reflux disease without esophagitis; E11.9 Type 2 diabetes mellitus without complications; F17.200 Nicotine dependence, unspecified, uncomplicated
CPT/HCPCS: 36415; 80048; 85025; 85347; 93454; 96376; 99152; 99153; C1725; C1760; C1769; C1874; C1887; C1894; C9600; G0269; J0461; J1644; J2250; J3010; J3490; J7030; J9999; Q0163; Q9967

== ENCOUNTER → 2024-09-10 10:26 | Outpatient (BNVA) | payer MEDICARE, SELFPAY | DX: E11.9 Type 2 diabetes mellitus without complications (principal); E78.5 Hyperlipidemia, unspecified | CPT/HCPCS: 80053; 80061; 83036 ==

== ENCOUNTER → 2024-09-14 08:29 | Outpatient (BNVA) | payer MEDICARE, SELFPAY | PROVIDERS: Visit Provider Nurse Practitioner Family | DX: Z09 Encounter for follow-up examination after completed treatment for conditions other than malignant neoplasm (principal); I25.10 Atherosclerotic heart disease of native coronary artery without angina pectoris; I10 Essential (primary) hypertension; E78.5 Hyperlipidemia, unspecified; R09.89 Other specified symptoms and signs involving the circulatory and respiratory systems; Z79.02 Long term (current) use of antithrombotics/antiplatelets; Z79.82 Long term (current) use of aspirin; F17.200 Nicotine dependence, unspecified, uncomplicated; I25.2 Old myocardial infarction | CPT/HCPCS: 99213 ==

== ENCOUNTER 2024-09-16 08:08 | Outpatient (CLI) | payer MEDICARE, SELFPAY ==
--- NOTE | 2024-09-16 08:00 | USCV_ITS ---
Kaiden Tree Age: 69 Gender: M : 1955 Exam Date: 09/16/2024 08:15 Ordering Phys: Elaine Kat NP Technologist: EMELIA [place] [facility] [place] Risk Factors: Previous Vascular Surgery: Right Brachial BP: / Left Brachial BP: / Right Left Velocity (cm/s) Spectral Plaque Velocity (cm/s) Spectral Plaque Syst/Diast Broadening Syst/Diast Broadening 106.10/27.10 Prox CCA 85.40 / 31.10 100.90/23.20 Mid CCA 108.70/ 36.80 107.50/25.40 Distal CCA 106.50/ 32.50 243.60/54.70 Prox ICA 125.80/ 34.40 112.80/34.90 Mid ICA 160.50/ 43.80 99.80/ 28.60 Distal ICA 151.00/ 40.70 256.80 ECA 138.60 2.30 ICA/CCA 1.20 Antegrade Vertebral Antegrade 58.60/ 18.80 cm/s 31.90/ 12.20 cm/s Tri Subclavian Tri 203.1 149.1 0 0 CONCLUSIONS Right ICA stenosis 70-99% at the lower end of the range. Recommend CTA neck. Severe atheromatous plaque right carotid bulb/ICA. Left ICA stenosis 50-69% at the lower end of the range. Moderate atheromatous plaque left carotid bulb/ICA. Normal antegrade Doppler flow noted in the right vertebral artery. Normal antegrade Doppler flow noted in the left vertebral artery. Charles Mccann MD (Electronically Signed) Final Date: 16 September 2024 15:58 S
== END 2024-09-16 08:09 | disposition home or self-care (01) ==
LOC: RAD 08:09
PROVIDERS: Visit Provider Nurse Practitioner Family
DX: I65.23 Occlusion and stenosis of bilateral carotid arteries (principal)
CPT/HCPCS: 93880

== ENCOUNTER → 2024-11-26 10:47 | Outpatient (BNVA) | payer MEDICARE, SELFPAY | DX: E11.9 Type 2 diabetes mellitus without complications (principal); I10 Essential (primary) hypertension | CPT/HCPCS: 80053; 83036; 85025 ==

== ENCOUNTER → 2024-12-14 15:21 | Outpatient (BNVA) | payer MEDICARE, SELFPAY | PROVIDERS: Visit Provider Internal Medicine Cardiovascular Disease | DX: I25.10 Atherosclerotic heart disease of native coronary artery without angina pectoris (principal); I10 Essential (primary) hypertension; E78.5 Hyperlipidemia, unspecified; Z85.51 Personal history of malignant neoplasm of bladder; Z98.890 Other specified postprocedural states; F17.200 Nicotine dependence, unspecified, uncomplicated | CPT/HCPCS: 99214 ==